=== PATIENT | male | born 1940 | race Caucasian/White ===

== ENCOUNTER → 2016-10-08 | Outpatient (CLI) | payer MEDICARE, BC ==
--- NOTE | 2016-10-08 15:54 | XR ---
EXAM TYPE: LUMBAR SPINE X RAY SERIES COMPARISON: NONE HISTORY: Low back pain TECHNIQUE: 3 views are submitted. FINDINGS: Alignment is anatomic. The pedicles are intact. The transverse processes are intact. There is no s pondylolysis or spondylolisthesis. Diffuse osteopenia is seen with postsurgical change at the lumbos acral junction. Hypertrophic changes and mild multilevel degenerative disc disease. Vascular calcific ation seen. IMPRESSION: 1. Hypertrophic and degenerative changes as discussed above. 2. Postsurgical change..
--- NOTE | 2016-10-09 08:13 | US ---
EXAMINATION TYPE: US venous doppler duplex LE DATE OF EXAM: 10/08/2016 2:44 PM COMPARISON: LOWER EXTREMITY VENOUS INSUFFICIENCY SIDE PERFORMED: 1) Color flow is present and patency is documented in the following vessels. No DVT or SVT is noted . ? EIV ? Common Femoral Vein ? Deep Femoral Vein ? Femoral Vein ? Popliteal Vein ? Greater Saph Vein 2) There is venous reflux noted at the following venous levels: left mid femoral vein, left proxi mal and mid popliteal TECHNOLOGIST IMPRESSION: Reflux not at levels above CLINICAL HISTORY: Venous Insufficency I87.2. SIDE PERFORMED: VESSELS IMAGED: External Iliac Vein (EIV) Common Femoral Vein Deep Femoral Vein Greater Saphenous Vein * Femoral Vein Popliteal Vein Small Saphenous Vein * Proximal Calf Veins (* superficial vessels) TECHNOLOGIST IMPRESSION: wnl Right Leg: Left Leg: No popliteal fossa lesion is seen. IMPRESSION: This examination is negative for DVT in both legs. Reflux as described.
--- NOTE | 2016-10-14 11:08 | P.ARTDOP ---
Arterial Doppler LOWER EXTREMITY ARTERIAL DOPPLER: DATE OF SERVICE: 10/08/2016 Reason for study: Suspected PVD. Doppler waveforms: Multiphasic to the dorsalis pedis on the right and popliteal on the left, monophasic left posterior tibial and digital is flat line digital on the right is atypical.. Pulse volume recording: Blunted throughout bilaterally. Pressure gradients: Mild gradient across the knee on the right. Ankle-brachial indices: 0.82 on the right and not recorded on the left. Toe pressures: Not recorded Impression: Suspect severe infrapopliteal disease on the left and at least moderate on the right. Clinical correlation recommended.
== END | disposition home or self-care (01) ==
LOC: RADUSWWP 14:12
PROVIDERS: ATTEND Neuromusculoskeletal Medicine & OMM
DX: I87.2 Venous insufficiency (chronic) (peripheral) (principal); I73.9 Peripheral vascular disease, unspecified; M51.36 Other intervertebral disc degeneration, lumbar region
CPT/HCPCS: 72100; 93923; 93970

== ENCOUNTER → 2016-12-01 | Outpatient (CLI) | payer MEDICARE, BC ==
[2016-12-01 14:53] LABS: ALT 23 U/L (21-72); AST 20 U/L (17-59); Alkaline Phosphatase 118 U/L (38-126); Anion Gap 12 mmol/L; Blood Urea Nitrogen 16 mg/dL (9-20); Carbon Dioxide 25 mmol/L (22-30); Chloride 103 mmol/L (98-107); Glucose 86 mg/dL (74-99); Non-African American GFR(MDRD) >60 (>60 ml/min/1.73 sqM); Potassium 5.4 mmol/L (3.5-5.1); Sodium 140 mmol/L (137-145); Total Protein 7.7 g/dL (6.3-8.2)
== END | disposition home or self-care (01) ==
LOC: LABWHC1 14:05
PROVIDERS: ATTEND Internal Medicine Interventional Cardiology
DX: R06.02 Shortness of breath (principal)
CPT/HCPCS: 36415; 80053; 83880

== ENCOUNTER → 2016-12-18 | Outpatient (CLI) | payer MEDICARE, BC ==
[2016-12-18 13:58] LABS: ALT 20 U/L (21-72); AST 21 U/L (17-59); Alkaline Phosphatase 130 U/L (38-126); Anion Gap 12 mmol/L; Blood Urea Nitrogen 20 mg/dL (9-20); Carbon Dioxide 26 mmol/L (22-30); Chloride 106 mmol/L (98-107); Cholesterol 196 mg/dL (<200); Glucose 96 mg/dL (74-99); HDL Cholesterol 44 mg/dL (40-60); Non-African American GFR(MDRD) >60 (>60 ml/min/1.73 sqM); Potassium 4.8 mmol/L (3.5-5.1); Sodium 144 mmol/L (137-145); Total Bilirubin 1.2 mg/dL (0.2-1.3); Total Protein 7.5 g/dL (6.3-8.2); Triglycerides 124 mg/dL (<150)
== END | disposition home or self-care (01) ==
LOC: LABWHC1 12:50
PROVIDERS: ATTEND Internal Medicine Interventional Cardiology
DX: E78.2 Mixed hyperlipidemia (principal)
CPT/HCPCS: 36415; 80053; 80061

== ENCOUNTER → 2017-03-04 | Outpatient (CLI) | payer MEDICARE, BC ==
[2017-03-04 12:04] LABS: Blood Urea Nitrogen 13 mg/dL (9-20); Non-African American GFR(MDRD) >60 (>60 ml/min/1.73 sqM)
--- NOTE | 2017-03-04 13:16 | CT ---
EXAMINATION TYPE: CT abdomen w con DATE OF EXAM: 03/04/2017 COMPARISON: NONE HISTORY: Abdominal pain and distention per order. Additional symptoms of constipation for 6 months pe r patient. CT DLP: 1266 mGycm, Automated Exposure Control for Dose Reduction was Utilized. CONTRAST: CT scan of the abdomen is performed with oral and with IV Contrast, patient injected with 100 mL of O mnipaque 300. FINDINGS: LUNG BASES: Dependent atelectatic change in both bases is present. There is trace pericardial effusio n. There is prominent but subcentimeter pericardial lymph node on axial image 12. LIVER/GB: Dependent gallstones are seen in gallbladder. There is no CT evidence for acute cholecystit is. Liver somewhat small in size. PANCREAS: No significant abnormality is seen. SPLEEN: No significant abnormality is seen. ADRENALS: No significant abnormality is seen. KIDNEYS: There is central 1.8 cm simple parapelvic cyst left kidney mid pole level on coronal image 6 5. There are simple appearing 1.9 cm cyst upper pole level right kidney on axial image 22. BOWEL: Oral contrast does not reach colonic level. There is no suspicious small or large bowel dilata tion. Moderate fecal material is somewhat prominent in visualized colon. There is small bowel feces s ign in the visualized right-sided distal ileum. LYMPH NODES: No greater than 1cm abdominal lymph nodes are appreciated. OSSEOUS STRUCTURES: Osseous structures are demineralized. There is multilevel spurring in the thoraci c spine. There are surgical change near lumbosacral junction. OTHER: There is moderate to severe mixed plaque in the aorta extending into branch vessels. IMPRESSION: Small bowel feces sign is consistent with delayed passage of ingested material to colonic level. There is overall mild to moderate diffuse colonic fecal stasis. No bowel obstruction is seen.
== END | disposition home or self-care (01) ==
LOC: RADCTMAIN 11:15
PROVIDERS: ATTEND Family Medicine
DX: K59.8 Other specified functional intestinal disorders (principal); R14.0 Abdominal distension (gaseous); R10.84 Generalized abdominal pain
CPT/HCPCS: 82565; 84520; 74160; 36415; Q9967

== ENCOUNTER → 2017-07-12 | Outpatient (CLI) | payer MEDICARE, BC ==
[2017-07-12 16:01] LABS: Blood Urea Nitrogen 15 mg/dL (9-20); Non-African American GFR(MDRD) >60 (>60 ml/min/1.73 sqM)
== END | disposition home or self-care (01) ==
LOC: LABWHC1 15:25
PROVIDERS: ATTEND Physical Medicine & Rehabilitation
DX: Z01.812 Encounter for preprocedural laboratory examination (principal); N28.9 Disorder of kidney and ureter, unspecified
CPT/HCPCS: 36415; 82565; 84520

== ENCOUNTER → 2017-09-09 | Outpatient (CLI) | payer MEDICARE, BC ==
--- NOTE | 2017-09-09 16:56 | XR ---
EXAMINATION TYPE: XR chest 2V DATE OF EXAM: 09/09/2017 COMPARISON: NONE HISTORY: Atrial fibrillation TECHNIQUE: Frontal and lateral views of the chest are obtained. FINDINGS: There is no heart failure nor confluent pneumonic infiltrate. Thoracic aorta is atheromato us. There is no sign of pleural effusion. Bony thorax appears intact. Heart does not appear enlarged. IMPRESSION: No active cardiopulmonary disease.
[2017-09-09 17:41] LABS: ALT 24 U/L (21-72); AST 21 U/L (17-59); Albumin 3.9 g/dL (3.5-5.0); Alkaline Phosphatase 140 U/L (38-126); Anion Gap 14 mmol/L; Blood Urea Nitrogen 18 mg/dL (9-20); Calcium 9.5 mg/dL (8.4-10.2); Carbon Dioxide 23 mmol/L (22-30); Chloride 103 mmol/L (98-107); Glucose 102 mg/dL (74-99); Potassium 4.3 mmol/L (3.5-5.1); Sodium 140 mmol/L (137-145)
== END | disposition home or self-care (01) ==
LOC: RADXRMAIN 16:23
PROVIDERS: ATTEND Internal Medicine Interventional Cardiology
DX: I48.0 Paroxysmal atrial fibrillation (principal); R06.09 Other forms of dyspnea
CPT/HCPCS: 36415; 71046; 80053; 83880

== ENCOUNTER → 2017-10-21 | Outpatient (CLI) | payer MEDICARE, BC ==
--- NOTE | 2017-10-21 15:48 | CT ---
EXAMINATION TYPE: High-resolution CT chest DATE OF EXAM: 10/21/2017 COMPARISON: NONE HISTORY: 77-year-old male Shortness of breath. TECHNIQUE: Contiguous high-resolution axial scanning of the chest without IV contrast. 1 mm slice thi ckness with 1 cm gap was utilized per HRCT protocol. Both supine and prone imaging was performed. CT DLP: 224 mGycm Automated exposure control for dose reduction was used. FINDINGS: The heart is normal size without pericardial effusion. Nonspecific prominent 1 cm pericardiac lymph n ode anteriorly. Mild coronary vessel calcifications are present. Ascending aorta mildly ectatic at 3.7 cm. Upper descending thoracic aorta ectatic at 3.1 cm. Conventi onal arch vessel branching anatomy. Borderline sized 1 cm right paratracheal lymph node. Borderline to mildly enlarged caliber to the dawit n right and left pulmonary arteries are 2.5 and 2.8 cm, respectively, suggesting underlying pulmonary arterial hypertension. Evaluation of the lung shows mild diffuse bronchial wall thickening and moderate centrilobular emphys cher. HRCT technique limits assessment for pulmonary nodules. There is some volume loss and patchy atelectasis at the right base. Moderate interstitial thickening in the basilar right middle lobe and inferior lingula. Otherwise, no dominant groundglass are stacked honeycombing is seen. No centrilobular nodules or thic kening of the bronchovascular bundles or perilymphatic nodularity. No consolidation or pleural effusi on. Visualized upper abdomen shows no gross abnormality. Bones: Osteopenia and multilevel degenerative disc disease throughout the thoracic spine. IMPRESSION: 1. COPD WITH MODERATE EMPHYSEMA. FINDINGS SUGGEST UNDERLYING PULMONARY ARTERIAL HYPERTENSION. 2. INTERSTITIAL CHANGES IN THE BASILAR RIGHT MIDDLE LOBE AND INFERIOR LINGULA. CORRELATE TO EXCLUDE I NDOLENT DAWIT INFECTION. CONSIDER 6 MONTH FOLLOW-UP TO REASSESS.
== END | disposition home or self-care (01) ==
LOC: RADCTMAIN 15:02
PROVIDERS: ATTEND Internal Medicine
DX: J43.9 Emphysema, unspecified (principal); J84.89 Other specified interstitial pulmonary diseases
CPT/HCPCS: 71250

== ENCOUNTER → 2017-11-02 | Outpatient (CLI) | payer MEDICARE, BC | END | disposition home or self-care (01) | LOC: LABWHC1 11:22 | PROVIDERS: ATTEND Internal Medicine | DX: R05 Cough (principal); R61 Generalized hyperhidrosis | CPT/HCPCS: 36415; 86480 ==

== ENCOUNTER 2017-11-17 09:10 | Day surgery (SDC) | payer MEDICARE, BC ==
[2017-11-12 16:16] VITALS: BMI 28.7
[~2017-11-17 09:10] MED LIST: LIDOCAINE 2% (PF) 20 MG/ML 2 ML AMP INHALATION ONE; LIDOCAINE VISCOUS 2% 15 ML CUP MUCOUS MEM ONE; SODIUM CHLORIDE 0.9% 1,000 ML IV ONE
[2017-11-17 09:33] VITALS: TEMP 97.8
[2017-11-17] MEDS: LACTATED RINGERS 1,000 ML IV SCH ×2 (09:49→10:12)
[2017-11-17] MEDS ORDERED: LIDOCAINE 1% 20 ML VIAL (10MG/ML) FOR IV START INTRADERMA ONE (09:49)
[2017-11-17] MEDS ORDERED: MIDAZOLAM 2 MG/2 ML VIAL ONE (10:16)
[2017-11-17] MEDS ORDERED: LIDOCAINE 1% INJ 10MG/ML (20 ML MDV) ONE (10:16)
[2017-11-17] MEDS ORDERED: PROPOFOL 10 MG/ML 20 ML VIAL IV ONE (10:16)
[2017-11-17] MEDS ORDERED: GLYCOPYRROLATE 0.2 MG/ML 2 ML VIAL ONE (10:16)
[2017-11-17] MEDS ORDERED: EPINEPHrine 10 ML SYRINGE (0.1 MG/ML) MISCELLANE ONE (10:50)
--- NOTE | 2017-11-17 11:03 | P.PCN ---
Date of Procedure: 11/17/17 Preoperative Diagnosis: Right middle lobe and lingula infiltrate concerning for DAWIT Postoperative Diagnosis: Same Procedure(s) Performed: Bronchoscopy with lingula BAL and right middle lobe BAL and transbronchial biopsies Surgeon: Aliza Morillo Estimated Blood Loss (ml): 25 Condition: stable Disposition: PACU Indications for Procedure: RML and lingula infiltrate Description of Procedure: After review of risks and benefits and discussion of alternative methods of diagnosis, the patient provided informed consent and is willing to proceed with evaluation is recommended. The patient, in endoscopy suite, was placed on continuous electrocardiogram, noninvasive blood pressure monitoring, and SpO2 monitoring. He was administered supplemental oxygen via nasal cannula and given IV sedation by the Department of anesthesia. The video bronchoscope was passed through the left nares and carried down to the level of the vocal cords the vocal cords were seen to be moving freely and phonation and respiration. The patient did have an abnormal glottis with axial deviation of the epiglottic folds. The larynx is normal. The trachea was normal. The lawson is sharp. The right mainstem bronchus was entered first where the right upper lobe, right middle lobe, and right lower lobe were identified. BAL was performed at the right middle lobe. The bronchoscope was then directed into the left mainstem bronchus.. BAL was performed at the lingula. The bronchoscope was then redirected back to the right middle lobe where transbronchial biopsies were obtained. Some bleeding occurred but hemostasis was achieved after the administration of 1mL epinephrine. The bronchoscope was then retracted and the procedure was terminated. The patient tolerated the procedure well. He was discharged to the recovery suite in stable and satisfactory position. We will obtain a post- procedure CXR. Family is updated to plan of care. Approximately 25 cc blood loss. Patient is transferred to recovery room in stable condition. He will follow up in my office on November 25 at 11 am. He can resume Xarelto on .
--- NOTE | 2017-11-17 11:28 | XR ---
EXAMINATION TYPE: XR chest 1V DATE OF EXAM: 11/17/2017 COMPARISON: 09/09/2017 HISTORY: Shortness of breath TECHNIQUE: Single frontal view of the chest is obtained. FINDINGS: Ectasia of the thoracic aorta noted. Chronic rib cage deformity suggestive with pleural th ickening bilaterally. Underlying cardiomegaly and COPD noted. Patchy infiltrate in the left upper lob e and right lower lobe. IMPRESSION: 1. Bilateral patchy areas of infiltrate superimposed on a background of COPD and suspected interstiti al lung disease.
[2017-11-17 11:31] VITALS: RESP 18
[2017-11-17 11:43] LABS: HCT 40.4 % (39.0-53.0); MCH 28.3 pg (25.0-35.0); MCHC 32.3 g/dL (31.0-37.0); MCV 87.7 fL (80.0-100.0); Mean Platelet Volume 7.3; Platelet Count 206 k/uL (150-450); RDW 13.3 % (11.5-15.5); WBC 6.8 k/uL (3.8-10.6)
[2017-11-17 11:48] LABS: INR 1.1 (<1.2)
[2017-11-17 11:49] LABS: Partial Thromboplastin Time 22.3 sec (22.0-30.0); Prothrombin Time 10.3 sec (9.0-12.0)
[2017-11-17 11:51] VITALS: BP 119/59; PULSE 69
[2017-11-17 16:29] LABS: Appearance,BF Hazy; Nucleated Cells, Body Fluid 15 /uL; RBC, Body Fluid 260 /uL
[2017-11-17 16:48] LABS: Mononuclear WBC,Body Fluid 96 %; Polynuclear WBC,Body Fluid 4 %; Total Cells Counted,Body Fluid 100
== END 2017-11-17 12:31 | disposition home or self-care (01) ==
LOC: ORWHC2ENDO 09:10
PROVIDERS: ATTEND Internal Medicine
DX: J98.4 Other disorders of lung (principal); I10 Essential (primary) hypertension; E78.5 Hyperlipidemia, unspecified; I48.91 Unspecified atrial fibrillation; N40.0 Benign prostatic hyperplasia without lower urinary tract symptoms; Z79.01 Long term (current) use of anticoagulants; Z79.899 Other long term (current) drug therapy
CPT/HCPCS: 94640; 87798 ×3; 87496; 87498; 87529; 88108; 88305; 86360; 89050; 85027; 85610; 85730; 87252; 87502; 87634; 87070; 87205; 87116; 87102; 87206; 71045; 31628; 31624; J2250; J2001 ×2; J0171; J2704; 31625

== ENCOUNTER 2018-01-28 11:37 | Day surgery (SDC) | payer MEDICARE, BC ==
[2018-01-25 08:46] VITALS: BMI 28.7
[~2018-01-28 11:37] MED LIST changes: +LACTATED RINGERS 1,000 ML IV SCH; +LIDOCAINE 1% 20 ML VIAL (10MG/ML) FOR IV START INTRADERMA PRN; -LIDOCAINE 2% (PF) 20 MG/ML 2 ML AMP INHALATION ONE; -LIDOCAINE VISCOUS 2% 15 ML CUP MUCOUS MEM ONE; -SODIUM CHLORIDE 0.9% 1,000 ML IV ONE
[2018-01-28 12:35] VITALS: RESP 16; TEMP 96.9
[2018-01-28] MEDS ORDERED: PROPOFOL 10 MG/ML 20 ML VIAL IV ONE (13:24)
--- NOTE | 2018-01-28 13:42 | P.GSHP ---
History of Present Illness H&P Date: 01/28/18 Chief Complaint: Screening colonoscopy This a 78-year-old male referred from Dr. Stock. Patient presents today for screening colonoscopy. She denies a significant GI complaints. Past Medical History Past Medical History: Atrial Fibrillation, COPD, Eye Disorder Additional Past Medical History / Comment(s): glaucoma, neuropathy, night sweats , abd. pain History of Any Multi-Drug Resistant Organisms: None Reported Past Surgical History: Back Surgery, Hernia Repair Additional Past Surgical History / Comment(s): colonoscopy Past Anesthesia/Blood Transfusion Reactions: No Reported Reaction Smoking Status: Former smoker - Past Family History Mother Family Medical History: No Reported History Medications and Allergies Home Medications Medication Instructions Recorded Confirmed Type Furosemide [Lasix] 20 mg PO BID 09/04/15 01/28/18 History Latanoprost Ophth [Xalatan 0.005%] 1 drops BOTH EYES HS 09/04/15 01/28/18 History Rivaroxaban [Xarelto] 20 mg PO HS 09/04/15 01/28/18 History Tiotropium 18 Mcg/Puff [Spiriva] 1 cap INHALATION QAM 09/04/15 01/28/18 History Metoprolol Tartrate 25 mg PO BID #180 tab 09/09/15 01/28/18 Rx Atorvastatin [Lipitor] 20 mg PO DAILY 11/12/17 01/28/18 History Tamsulosin [Flomax] 0.4 mg PO DAILY 11/12/17 01/28/18 History Allergies Allergy/AdvReac Type Severity Reaction Status Date / Time No Known Allergies Allergy Verified 01/28/18 12:28 Surgical - Exam Vital Signs Temp Pulse Resp BP Pulse Ox 96.9 F L 79 16 128/78 97 01/28/18 12:31 01/28/18 12:31 01/28/18 12:31 01/28/18 12:31 01/28/18 12:31 - General well developed, no distress - Eyes PERRL - ENT normal pinna - Neck no masses - Respiratory normal expansion - Cardiovascular Rhythm: regular - Abdomen Abdomen: soft, non tender Assessment and Plan Assessment: We will perform screening colonoscopy.
--- NOTE | 2018-01-28 14:01 | P.OP ---
Date of Procedure: 01/28/18 Preoperative Diagnosis: Screening colonoscopy Postoperative Diagnosis: Mild diverticulosis Poor colonic prep Procedure(s) Performed: Colonoscopy Anesthesia: MAC Surgeon: Tan Lamb Pathology: none sent Condition: stable Disposition: PACU Description of Procedure: The patient's placed on the endoscopy table in the lateral position. He received IV sedation. Digital rectal exam was performed which revealed no abnormalities. The flexible colonoscope was then placed patient anus and passed throughout the entire colon. The ileocecal valve was visually's. There was a large amount liquid stool in the colon. This limited view of the mucosa. The cecum and right colon appeared normal. The transverse colon appeared normal. In the descending colon was a few scattered diverticula. The; was a few scattered diverticula. Scope was then brought back the rectum and this appeared normal. Scope withdrawn from the patient.
[2018-01-28 14:28] VITALS: BP 160/96; PULSE 70
== END 2018-01-28 14:48 | disposition home or self-care (01) ==
LOC: ORWHC2ENDO 11:37
PROVIDERS: ATTEND Surgery
DX: Z12.11 Encounter for screening for malignant neoplasm of colon (principal); K57.30 Diverticulosis of large intestine without perforation or abscess without bleeding; I48.91 Unspecified atrial fibrillation; J44.9 Chronic obstructive pulmonary disease, unspecified; H40.9 Unspecified glaucoma; G62.9 Polyneuropathy, unspecified; R61 Generalized hyperhidrosis; R10.9 Unspecified abdominal pain; I10 Essential (primary) hypertension; E78.5 Hyperlipidemia, unspecified; Z87.891 Personal history of nicotine dependence; Z79.01 Long term (current) use of anticoagulants; Z79.899 Other long term (current) drug therapy
CPT/HCPCS: J2704; G0121

== ENCOUNTER → 2018-02-03 | Outpatient (CLI) | payer MEDICARE, BC ==
[2018-02-03 10:45] LABS: Blood Urea Nitrogen 11 mg/dL (9-20)
--- NOTE | 2018-02-03 13:13 | CT ---
EXAMINATION TYPE: CT abdomen pelvis w con DATE OF EXAM: 02/03/2018 COMPARISON: 03/04/2017 HISTORY: Constipation; ventral hernia CT DLP: 1347.5 mGycm Automated exposure control for dose reduction was used. TECHNIQUE: Helical acquisition of images was performed from the lung bases through the pelvis. CONTRAST: Performed with Oral Contrast and with IV Contrast, patient injected with 100 mL of Isovue 300. FINDINGS: LUNG BASES: Minimal bibasilar subsegmental dependent atelectasis is identified. Calcifications along the pericardial surface may relate to sequela of prior pericarditis. Solitary epiphrenic lymph node i s nonenlarged measuring 7 mm in short axis. LIVER/GB: There is a nodular contour the liver suggesting underlying hepatocellular disease. Multiple gallstones layer within the gallbladder dependently. Common bile duct appears within normal limits m easuring 6 mm. PANCREAS: Pancreas enhances homogeneously without ductal dilatation. SPLEEN: Unremarkable ADRENALS: No nodularity or thickening. KIDNEYS: Multiple bilateral renal cysts are seen in addition to 2 small to accurately characterize ri ght renal lesions. No hydronephrosis. Extrarenal pelvises sees are noted. FREE AIR: No free air is visualized. ADENOPATHY: No greater than 1 cm short axis with nodes within the abdomen or pelvis. URINARY BLADDER: No significant abnormality is seen. OSSEOUS STRUCTURES: Postsurgical changes of the lumbosacral junction are present. Mild multilevel de generative changes of the remainder of the visualized thoracolumbar spine are seen. BOWEL: There is long segment narrowing of the sigmoid colon without proximal dilatation to suggest o bstruction. This likely relates to colonic spasm rather than stricture. There is lipomatous hypertrop hy of the ileocecal valve appreciated. The stomach is nondistended and poorly evaluated. OTHER: Extensive atherosclerosis of the abdominal aorta and its branches are seen. There is focal inf rarenal abdominal aortic ectasia measuring up to 2.6 x 2.7 cm spanning a length of 3.0 cm on series 4 image 41 and series 8 image 47. No ventral hernia is appreciated. IMPRESSION: 1. NO VENTRAL HERNIA IS APPRECIATED BY CT. 2. MODERATE AMOUNT RETAINED COLONIC STOOL INDICATING FECAL STASIS AND INCIDENTAL NOTE OF LIPOMATOUS H YPERTROPHY OF THE ILEOCECAL VALVE WITHOUT OBSTRUCTING MASS. 3. EXTENSIVE CALCIFIC ATHEROMATOUS CHANGES OF THE ABDOMINAL AORTA AND ITS BRANCHES. 4. FINDINGS SUGGESTING UNDERLYING HEPATOCELLULAR DISEASE AND INCIDENTALLY NOTED CHOLELITHIASIS. 5. PERICARDIAL CALCIFICATION SUGGESTIVE OF PRIOR PERICARDITIS.
== END | disposition home or self-care (01) ==
LOC: RADCTMAIN 09:55
PROVIDERS: ATTEND Surgery
DX: K59.00 Constipation, unspecified (principal); I70.0 Atherosclerosis of aorta
CPT/HCPCS: 82565; 84520; 74177; Q9967

== ENCOUNTER 2018-02-21 07:55 | Day surgery (SDC) | payer MEDICARE, BC ==
[2018-02-14 13:59] VITALS: BMI 27.6
[~2018-02-21 07:55] MED LIST changes: +DEXAMETHASONE SOD PHOSPHATE 10 MG/ML 1 ML VIAL IV ONE; +HEPARIN SODIUM,PORCINE 5,000 UNIT/ML 1 ML VIAL SQ ONE; +HYDROmorphone 1 MG/ML 1 ML SYRINGE IVP PRN; +MIDAZOLAM 2 MG/2 ML VIAL IV PRN; +ONDANSETRON 4 MG/2 ML VIAL IVP ONE; +SCOPOLAMINE 1.5MG/72HR PATCH TRANSDERM ONE; +ceFAZolin IN SWFI 2 GM/20 ML SYRINGE IVP ONE
--- NOTE | 2018-02-21 09:54 | P.GSHP ---
History of Present Illness H&P Date: 02/21/18 Chief Complaint: Cholelithiasis, chronic cholecystitis This is a 78-year-old male referred from Dr. Stock. Patient presents today for laparoscopic cholecystectomy. He's had issues with right upper quadrant pain. He is worked up found have gallstones. Past Medical History Past Medical History: Atrial Fibrillation, COPD, Eye Disorder Additional Past Medical History / Comment(s): glaucoma, hx neuropathy, night sweats, History of Any Multi-Drug Resistant Organisms: None Reported Past Surgical History: Back Surgery, Hernia Repair Additional Past Surgical History / Comment(s): colonoscopy, surgery for pinched nerve in back Past Anesthesia/Blood Transfusion Reactions: No Reported Reaction Smoking Status: Former smoker - Past Family History Mother Family Medical History: No Reported History Medications and Allergies Home Medications Medication Instructions Recorded Confirmed Type Furosemide [Lasix] 20 mg PO BID 09/04/15 02/14/18 History Latanoprost Ophth [Xalatan 0.005%] 1 drops BOTH EYES HS 09/04/15 02/14/18 History Rivaroxaban [Xarelto] 20 mg PO HS 09/04/15 02/14/18 History Tiotropium 18 Mcg/Puff [Spiriva] 1 cap INHALATION QAM 09/04/15 02/14/18 History Metoprolol Tartrate 25 mg PO BID #180 tab 09/09/15 02/14/18 Rx Tamsulosin [Flomax] 0.4 mg PO DAILY 11/12/17 02/14/18 History Atorvastatin [Lipitor] 40 mg PO HS 02/14/18 02/14/18 History Allergies Allergy/AdvReac Type Severity Reaction Status Date / Time No Known Allergies Allergy Verified 02/14/18 13:49 Surgical - Exam Vital Signs Temp Pulse Resp BP Pulse Ox 97.1 F L 79 18 121/78 98 02/21/18 08:32 02/21/18 08:32 02/21/18 08:32 02/21/18 08:32 02/21/18 08:32 - General well developed, no distress - Eyes PERRL - ENT normal pinna - Neck no masses - Respiratory normal expansion - Cardiovascular Rhythm: regular - Abdomen Abdomen: soft, non tender Assessment and Plan Assessment: Cholelithiasis Recurrent pain We'll perform laparoscopic cholecystectomy
[2018-02-21] MEDS ORDERED: MIDAZOLAM 2 MG/2 ML VIAL ONE (10:19)
[2018-02-21] MEDS ORDERED: PROPOFOL 10 MG/ML 20 ML VIAL IV ONE (10:19)
[2018-02-21] MEDS ORDERED: fentaNYL (PF) 50 MCG/ML 2 ML AMP ONE (10:19)
[2018-02-21] MEDS ORDERED: SUCCINYLCHOLINE CHLORIDE 100 MG/5 ML SYR IV ONE (10:19)
[2018-02-21] MEDS ORDERED: ROCURONIUM BROMIDE 10 MG/ML 10 ML VIAL IV ONE (10:19)
[2018-02-21] MEDS ORDERED: GLYCOPYRROLATE 0.2 MG/ML 2 ML VIAL ONE (10:19)
[2018-02-21] MEDS ORDERED: LIDOCAINE 1% INJ 10MG/ML (20 ML MDV) ONE (10:19)
[2018-02-21] MEDS ORDERED: KETOROLAC 30 MG/ML 1 ML VIAL ONE (10:19)
[2018-02-21] MEDS ORDERED: NEOSTIGMINE 1 MG/ML 10 ML VIAL ONE (10:19)
[2018-02-21] MEDS ORDERED: BUPIVACAIN-EPI 0.5%-1:200,000 30 ML VIAL SQ ONE (10:39)
--- NOTE | 2018-02-21 11:07 | P.OP ---
Date of Procedure: 02/21/18 Preoperative Diagnosis: Cholecystitis Postoperative Diagnosis: Cholecystitis Procedure(s) Performed: Laparoscopic cholecystectomy Anesthesia: ASHELY Surgeon: Tan Lamb Pathology: other (gAll bladder) Condition: stable Disposition: PACU Description of Procedure: The patient was placed on the operating table. The patient received a general endotracheal tube anesthesia. The patients abdomen was prepped and draped in the usual sterile fashion. Through an infraumbilical stab incision, the fascia of the anterior abdominal wall was grasped with a pair of Kochers and then the Veress needle was placed in the peritoneal cavity. Position of the Veress needle was confirmed with positive drop test. The abdomen was then insufflated. After adequate insufflation, the 10 mm trocar was placed in the peritoneal cavity. Following this the laparoscope was placed in the peritoneal cavity. The patient was placed in the head-up, right side up position and then a 5 mm trocar was placed in the right lateral and right subcostal position under direct visualization. A 8 mm trocar was placed in the epigastric position. The gallbladder was grasped in the fundus and infundibulum. Traction on the gallbladder was placed in the lateral and the cephalad positions. The triangle of Calot was visualized.. The cystic duct was bluntly dissected until the union of the cystic duct and common bile duct was seen. The cystic duct was then divided and sealed with the Harmonic scissors. A PDS Endoloop was then placed throughout the cystic duct stump. The cystic artery divided and sealed with the Harmonic scissors. The gallbladder was then removed from the liver bed using Harmonic scissors. The gallbladder was then extracted through the epigastric port site. Operative field was checked for any bleeding spots and Harmonic scissors was used to coagulate the liver bed. The abdomen was irrigated. The trocars were removed. The skin was closed using interrupted 3-0 Vicryl suture. Dermabond dressing were applied. The patient tolerated the procedure well.
[2018-02-21 11:13] VITALS: TEMP 96.9
[2018-02-21 12:59] VITALS: BP 148/90; PULSE 77; RESP 20
== END 2018-02-21 13:13 | disposition home or self-care (01) ==
LOC: OR 07:55
PROVIDERS: ATTEND Surgery
DX: K80.10 Calculus of gallbladder with chronic cholecystitis without obstruction (principal); Z79.01 Long term (current) use of anticoagulants; I48.91 Unspecified atrial fibrillation; J44.9 Chronic obstructive pulmonary disease, unspecified; H40.9 Unspecified glaucoma; Z87.891 Personal history of nicotine dependence; I10 Essential (primary) hypertension; E78.5 Hyperlipidemia, unspecified; Z79.899 Other long term (current) drug therapy
CPT/HCPCS: 88304; 47562; J2250; J1644; J1100; J2710; J2405; J2001; J3010; J1885; J0330; J2704; J0690

== ENCOUNTER 2018-03-03 12:20 | Emergency (ER) | payer MEDICARE, BC ==
[2018-03-03] MEDS ORDERED: SODIUM CHLORIDE 0.9% 1,000 ML IV STA (12:27)
[2018-03-03] MEDS ORDERED: IPRATROPIUM-ALBUTEROL 3 ML NEB INHALATION STA (12:27)
--- NOTE | 2018-03-03 12:43 | ED ---
SOB HPI - General Chief Complaint: Shortness of Breath Stated Complaint: Afib Time Seen by Provider: 03/03/18 12:20 Source: patient (\), family, EMS, RN notes reviewed Mode of arrival: EMS Limitations: no limitations - History of Present Illness Initial Comments: This is a 78-year-old male with a history of a cholecystectomy done laparoscopically 9 days ago who complains of difficulty breathing is started today. He has a history of atrial fibrillation he states it feels similar to that he denies any fevers chills nausea vomiting sweats no overt chest pains he was brought in by EMS because of a history of COPD he does not have a rescue inhaler. No other complaints MD Complaint: shortness of breath - Related Data Home Medications Medication Instructions Recorded Confirmed Furosemide [Lasix] 20 mg PO BID 09/04/15 03/03/18 Latanoprost Ophth [Xalatan 0.005%] 1 drops BOTH EYES HS 09/04/15 03/03/18 Rivaroxaban [Xarelto] 20 mg PO HS 09/04/15 03/03/18 Tiotropium 18 Mcg/Puff [Spiriva] 1 cap INHALATION RT-DAILY 09/04/15 03/03/18 Tamsulosin [Flomax] 0.4 mg PO DAILY 11/12/17 03/03/18 Atorvastatin [Lipitor] 60 mg PO HS 02/14/18 03/03/18 Previous Rx's Medication Instructions Recorded Metoprolol Tartrate 25 mg PO BID #180 tab 09/09/15 Albuterol Inhaler [Ventolin Hfa 2 puff INHALATION Q6HR PRN #1 03/03/18 Inhaler] inhaler Ondansetron Odt [Zofran Odt] 4 mg PO Q8HR PRN #10 tab 03/03/18 Allergies Allergy/AdvReac Type Severity Reaction Status Date / Time No Known Allergies Allergy Verified 03/03/18 12:31 Review of Systems ROS Statement: Those systems with pertinent positive or pertinent negative responses have been documented in the HPI. ROS Other: All systems not noted in ROS Statement are negative. Past Medical History Past Medical History: Atrial Fibrillation, COPD, Eye Disorder Additional Past Medical History / Comment(s): glaucoma, hx neuropathy, night sweats, History of Any Multi-Drug Resistant Organisms: None Reported Past Surgical History: Back Surgery, Cholecystectomy, Hernia Repair Additional Past Surgical History / Comment(s): colonoscopy, surgery for pinched nerve in back Past Anesthesia/Blood Transfusion Reactions: No Reported Reaction Past Psychological History: No Psychological Hx Reported Smoking Status: Former smoker Past Alcohol Use History: None Reported Past Drug Use History: None Reported - Past Family History Mother Family Medical History: No Reported History General Exam - General Exam Comments Initial Comments: This is a well up well-nourished awake alert oriented 3 male Limitations: no limitations General appearance: alert, in no apparent distress Head exam: Present: atraumatic, normocephalic, normal inspection Eye exam: Present: normal appearance, PERRL, EOMI. Absent: scleral icterus, conjunctival injection, periorbital swelling ENT exam: Present: normal exam, mucous membranes moist Neck exam: Present: normal inspection. Absent: tenderness, meningismus, lymphadenopathy Respiratory exam: Present: decreased breath sounds. Absent: respiratory distress, wheezes, rales, rhonchi, stridor Cardiovascular Exam: Present: regular rate, normal rhythm, normal heart sounds. Absent: systolic murmur, diastolic murmur, rubs, gallop, clicks GI/Abdominal exam: Present: soft, normal bowel sounds, other (Well-healing surgical port sites no dehiscence no drainage there is ecchymosis seen to the lower abdominal wall consistent with the surgery.). Absent: distended, tenderness, guarding, rebound, rigid Extremities exam: Present: normal inspection, full ROM, normal capillary refill. Absent: tenderness, pedal edema, joint swelling, calf tenderness Back exam: Present: normal inspection Neurological exam: Present: alert, oriented X3, CN II-XII intact Psychiatric exam: Present: normal affect, normal mood Skin exam: Present: warm, dry, intact, normal color. Absent: rash Course Vital Signs 03/03/18 03/03/18 03/03/18 12:31 12:43 13:11 Temperature 98.0 F Pulse Rate 68 66 66 Respiratory 18 16 18 Rate Blood Pressure 140/70 132/60 O2 Sat by Pulse 96 97 Oximetry 03/03/18 03/03/18 03/03/18 13:18 13:30 15:41 Temperature Pulse Rate 67 68 82 Respiratory 18 22 18 Rate Blood Pressure 110/78 135/69 O2 Sat by Pulse 99 100 Oximetry Medical Decision Making - Medical Decision Making I did discuss the findings with the patient family and with Dr. Lamb. Patient will be discharged I will place him on a inhaler he is to keep his follow-up appointment with Dr. Reyes tomorrow. He did have some nausea I will write for some Zofran for him. - Lab Data Result diagrams: 03/03/18 12:41 03/03/18 12:41 Lab Results 03/03/18 03/03/18 03/03/18 Range/Units 12:41 12:41 12:41 WBC 6.3 (3.8-10.6) k/uL RBC 5.06 (4.30-5.90) m/uL Hgb 14.4 (13.0-17.5) gm/dL Hct 43.4 (39.0-53.0) % MCV 85.9 (80.0-100.0) fL MCH 28.4 (25.0-35.0) pg MCHC 33.1 (31.0-37.0) g/dL RDW 14.5 (11.5-15.5) % Plt Count 205 (150-450) k/uL Neutrophils % 65 % Lymphocytes % 21 % Monocytes % 8 % Eosinophils % 4 % Basophils % 0 % Neutrophils # 4.1 (1.3-7.7) k/uL Lymphocytes # 1.3 (1.0-4.8) k/uL Monocytes # 0.5 (0-1.0) k/uL Eosinophils # 0.3 (0-0.7) k/uL Basophils # 0.0 (0-0.2) k/uL PT (9.0-12.0) sec INR (<1.2) APTT (22.0-30.0) sec Sodium 140 (137-145) mmol/L Potassium 4.7 (3.5-5.1) mmol/L Chloride 111 H (98-107) mmol/L Carbon Dioxide 21 L (22-30) mmol/L Anion Gap 8 mmol/L BUN 13 (9-20) mg/dL Creatinine 0.65 L (0.66-1.25) mg/dL Est GFR (CKD-EPI)AfAm >90 (>60 ml/min/1.73 sqM) Est GFR (CKD-EPI)NonAf >90 (>60 ml/min/1.73 sqM) Glucose 100 H (74-99) mg/dL Calcium 9.0 (8.4-10.2) mg/dL Magnesium 2.6 H (1.6-2.3) mg/dL Total Bilirubin 1.5 H (0.2-1.3) mg/dL AST 35 (17-59) U/L ALT 27 (21-72) U/L Alkaline Phosphatase 147 H (38-126) U/L Total Creatine Kinase 25 L (55-170) U/L CK-MB (CK-2) 0.3 (0.0-2.4) ng/mL CK-MB (CK-2) Rel Index 1.2 Troponin I <0.012 (0.000-0.034) ng/mL NT-Pro-B Natriuret Pep pg/mL Total Protein 6.9 (6.3-8.2) g/dL Albumin 3.9 (3.5-5.0) g/dL 03/03/18 03/03/18 Range/Units 12:41 12:41 WBC (3.8-10.6) k/uL RBC (4.30-5.90) m/uL Hgb (13.0-17.5) gm/dL Hct (39.0-53.0) % MCV (80.0-100.0) fL MCH (25.0-35.0) pg MCHC (31.0-37.0) g/dL RDW (11.5-15.5) % Plt Count (150-450) k/uL Neutrophils % % Lymphocytes % % Monocytes % % Eosinophils % % Basophils % % Neutrophils # (1.3-7.7) k/uL Lymphocytes # (1.0-4.8) k/uL Monocytes # (0-1.0) k/uL Eosinophils # (0-0.7) k/uL Basophils # (0-0.2) k/uL PT 11.4 (9.0-12.0) sec INR 1.2 H (<1.2) APTT 24.8 (22.0-30.0) sec Sodium (137-145) mmol/L Potassium (3.5-5.1) mmol/L Chloride (98-107) mmol/L Carbon Dioxide (22-30) mmol/L Anion Gap mmol/L BUN (9-20) mg/dL Creatinine (0.66-1.25) mg/dL Est GFR (CKD-EPI)AfAm (>60 ml/min/1.73 sqM) Est GFR (CKD-EPI)NonAf (>60 ml/min/1.73 sqM) Glucose (74-99) mg/dL Calcium (8.4-10.2) mg/dL Magnesium (1.6-2.3) mg/dL Total Bilirubin (0.2-1.3) mg/dL AST (17-59) U/L ALT (21-72) U/L Alkaline Phosphatase (38-126) U/L Total Creatine Kinase (55-170) U/L CK-MB (CK-2) (0.0-2.4) ng/mL CK-MB (CK-2) Rel Index Troponin I (0.000-0.034) ng/mL NT-Pro-B Natriuret Pep 748 pg/mL Total Protein (6.3-8.2) g/dL Albumin (3.5-5.0) g/dL - EKG Data -: EKG Interpreted by Md EKG shows normal: sinus rhythm (Sinus bradycardia rate of 59. Interval 134 QRS 84 QT since QTC 398/[address]-T wave changes) - Radiology Data Radiology results: report reviewed (I did the imaging and report no acute findings on initial imaging CAT scan did show no evidence of PE the CT was reviewed there is evidence of postoperative hematoma.), image reviewed Disposition Clinical Impression: Acute exacerbation of chronic obstructive airways disease, Postop check, Nausea alone Disposition: HOME SELF-CARE Condition: Good Instructions: COPD (Chronic Obstructive Pulmonary Disease) (ED), Acute Nausea and Vomiting (ED) Prescriptions: Albuterol Inhaler [Ventolin Hfa Inhaler] 2 puff INHALATION Q6HR PRN #1 inhaler PRN Reason: Dyspnea Ondansetron Odt [Zofran Odt] 4 mg PO Q8HR PRN #10 tab PRN Reason: Nausea Is patient prescribed a controlled substance at d/c from ED?: No Referrals: Maria Ines Jaimes MD [Primary Care Provider] - 1-2 days
[2018-03-03 12:55] LABS: Basophils % (A) 0 %; Eosinophils # (A) 0.3 k/uL (0-0.7); Eosinophils % (A) 4 %; HCT 43.4 % (39.0-53.0); HGB 14.4 gm/dL (13.0-17.5); Lymphocytes # (A) 1.3 k/uL (1.0-4.8); Lymphocytes % (A) 21 %; MCH 28.4 pg (25.0-35.0); MCHC 33.1 g/dL (31.0-37.0); MCV 85.9 fL (80.0-100.0); Mean Platelet Volume 7.1; Monocytes # (A) 0.5 k/uL (0-1.0); Monocytes % (A) 8 %; Neutrophils # (A) 4.1 k/uL (1.3-7.7); Neutrophils % (A) 65 %; Platelet Count 205 k/uL (150-450); RBC 5.06 m/uL (4.30-5.90); RDW 14.5 % (11.5-15.5); WBC 6.3 k/uL (3.8-10.6)
[2018-03-03 12:59] LABS: INR 1.2 (<1.2); Partial Thromboplastin Time 24.8 sec (22.0-30.0); Prothrombin Time 11.4 sec (9.0-12.0)
[2018-03-03 13:17] LABS: ALT 27 U/L (21-72); AST 35 U/L (17-59); Albumin 3.9 g/dL (3.5-5.0); Alkaline Phosphatase 147 U/L (38-126); Anion Gap 8 mmol/L; Blood Urea Nitrogen 13 mg/dL (9-20); Carbon Dioxide 21 mmol/L (22-30); Chloride 111 mmol/L (98-107); Creatine Kinase 25 U/L (55-170); Glucose 100 mg/dL (74-99); Magnesium 2.6 mg/dL (1.6-2.3); Sodium 140 mmol/L (137-145); Total Bilirubin 1.5 mg/dL (0.2-1.3); Total Protein 6.9 g/dL (6.3-8.2)
[2018-03-03 13:18] LABS: Potassium 4.7 mmol/L (3.5-5.1)
--- NOTE | 2018-03-03 13:23 | XR ---
EXAMINATION TYPE: XR chest 2V DATE OF EXAM: 03/03/2018 COMPARISON: Prior chest x-ray 11/17/[address] 02/03/2018, 10/21/2017 HISTORY: Difficulty breathing TECHNIQUE: Frontal and lateral views of the chest are obtained. FINDINGS: Cardiac mediastinal silhouette, pulmonary vascularity and karen are not significantly sesay ed. There is improvement in the aeration within the lungs, interstitium is less conspicuous. 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 Prominent lung volume compatible with underlying emphysema. No evident pneumoth orax. There are overlying cardiac leads. IMPRESSION: There is a component of interstitial lung disease, emphysema. Suspect some chronic pleur al reaction.
[2018-03-03 13:28] LABS: Creatine Kinase MB 0.3 ng/mL (0.0-2.4); Troponin I <0.012 ng/mL (0.000-0.034)
--- NOTE | 2018-03-03 15:35 | CT ---
EXAMINATION TYPE: CT angio chest DATE OF EXAM: 03/03/2018 COMPARISON: NONE HISTORY: SOB post op cholecystectomy CT DLP: 380.5 mGycm. Automated Exposure Control for Dose Reduction was Utilized. CONTRAST: CTA scan of the thorax is performed with IV Contrast, patient injected with 100 mL of Isovue 370, pul monary embolism protocol. MIP Images are created on CT scanner and reviewed. FINDINGS: LUNGS: Moderate background centrilobular emphysematous change is noted with biapical pleural parenchy mal scarring. Left basilar pleural-parenchymal bandlike fibrosis is present in addition to bilateral subsegmental atelectasis, right greater than left. Right basilar consolidation is hyperdense and ther efore favored to represent atelectasis rather than early pneumonia. There is no pneumothorax seen. Trace pleural effusions are noted. The tracheobronchial tree is patent. MEDIASTINUM: There is satisfactory enhancement of the pulmonary artery and its branches, there is no CT evidence for pulmonary embolism. There are no greater than 1 cm hilar or mediastinal lymph nodes. Mild coronary artery calcifications are seen. Trace pericardial fluid is noted as well as few perica rdial calcifications likely the sequela of prior pericarditis. OTHER: Visualized portions of the upper abdomen will be discussed in the CT abdomen dictation of the same date. Incidentally noted retroareolar probable gynecomastia is seen, left greater than right. Ho wever there are 2 densities lateral to the nipple on series 2 image 85 and 88 that do not appear cont iguous with the retroareolar tissue. Similarly on the right there is a subcentimeter mass on image 78 . Ultrasound is recommended for further evaluation. IMPRESSION: 1. No evidence of pulmonary embolism. 2. Bilateral subsegmental atelectasis, right greater than left with trace pleural effusions. 3. Subcentimeter densities in both lateral breasts in addition to retroareolar gynecomastia, left gre ater than right. Ultrasound is recommended on a nonemergent basis for full characterization.
[2018-03-03 15:44] VITALS: RESP 18
--- NOTE | 2018-03-03 15:45 | CT ---
EXAMINATION TYPE: CT abdomen pelvis w con DATE OF EXAM: 03/03/2018 COMPARISON: HISTORY: SOB and abdominal pain post op cholecystectomy CT DLP: 1571 mGycm Automated exposure control for dose reduction was used. TECHNIQUE: Helical acquisition of images was performed from the lung bases through the pelvis. CONTRAST: Performed without Oral Contrast and with IV Contrast, patient injected with 100 mL of Isovue 370. FINDINGS: LUNG BASES: No significant abnormality is appreciated. LIVER/GB: High density collection within the gallbladder fossa measures approximately 6.2 x 3.6 cm. T here is surrounding inflammatory change, however this inflammatory change could be postsurgical or re lated to infectious etiology. Considerations are for complex abscess, biloma or hematoma. Abutting lo ops of matted small bowel is seen more anteriorly on series 3 image 36 and 35 near the serosal surfac e of the liver. Lobulated contour the liver most appreciated inferiorly suggestive of early underlying hepatocellular disease. PANCREAS: No significant abnormality is seen. No ductal dilatation. SPLEEN: No splenomegaly. ADRENALS: No nodularity or thickening. KIDNEYS: There are bilateral renal cysts and too small to accurately characterize right lower pole 5 mm renal lesion. FREE AIR: No free air is visualized. URINARY BLADDER: No significant abnormality is seen. ADENOPATHY: No greater than 1 cm short axis lymph node is seen within the abdomen or pelvis. OSSEOUS STRUCTURES: Postsurgical fixation of L5-S1 is seen with multilevel degenerative changes of t he spine. There is a slight dextroscoliotic curvature of the lumbar spine. BOWEL: Moderate amount retained colonic stool is seen. No large or small bowel dilatation are noted to suggest obstruction. The small bowel is predominantly gathered within the right mid abdomen althou gh there is no reversal of the orientation of the superior mesenteric vein and artery to suggest malr otation. No dilation to suggest internal hernia at this time. OTHER: Extensive calcific and noncalcific atheromatous changes are seen of the abdominal aorta with a small intimal flap focally of the infrarenal abdominal aorta representing either a penetrating ather omatous ulcer on series 6 image 43 or possibly a short segment chronic dissection on series 6 image 4 2 and 41. IMPRESSION: 1. HIGH DENSITY FLUID COLLECTION WITHIN THE GALLBLADDER FOSSA MAY REPRESENT A BILOMA, COMPLEX ABSCESS ES, OR HEMATOMA GIVEN ITS DENSITY. SURROUNDING INFLAMMATORY CHANGE MAY BE POSTSURGICAL. HIDA SCAN COU LD BE PERFORMED TO EVALUATE FOR THE PRESENCE OF A BILOMA. 2. INFRARENAL PENETRATING ATHEROMATOUS ULCER OR SHORT SEGMENT CHRONIC DISSECTION SUPERIMPOSED UPON EX TENSIVE ATHEROMATOUS CHANGES OF THE ABDOMINAL AORTA. 3. FINDINGS SUGGESTING EARLY HEPATOCELLULAR DISEASE.
[2018-03-03 16:43] VITALS: BP 128/70; PULSE 78; TEMP 97.5
== END 2018-03-03 16:43 | disposition home or self-care (01) ==
LOC: EC 12:20
DX: J44.1 Chronic obstructive pulmonary disease with (acute) exacerbation (principal); R11.0 Nausea; Z48.815 Encounter for surgical aftercare following surgery on the digestive system; I48.91 Unspecified atrial fibrillation; H40.9 Unspecified glaucoma; Z87.891 Personal history of nicotine dependence; Z79.01 Long term (current) use of anticoagulants; Z79.899 Other long term (current) drug therapy; Z90.49 Acquired absence of other specified parts of digestive tract; Z53.8 Procedure and treatment not carried out for other reasons
CPT/HCPCS: 36415; 94640; 93005; 83880; 80053; 82550; 82553; 83735; 84484; 85025; 85610; 85730; 71046; 71275; 74177; 99285; Q9967

== ENCOUNTER 2018-05-02 12:16 | Day surgery (SDC) | payer MEDICARE, BC ==
[2018-04-28 09:34] VITALS: BMI 27.9
[~2018-05-02 12:16] MED LIST changes: -DEXAMETHASONE SOD PHOSPHATE 10 MG/ML 1 ML VIAL IV ONE; -HEPARIN SODIUM,PORCINE 5,000 UNIT/ML 1 ML VIAL SQ ONE; -HYDROmorphone 1 MG/ML 1 ML SYRINGE IVP PRN; -LIDOCAINE 1% 20 ML VIAL (10MG/ML) FOR IV START INTRADERMA PRN; -MIDAZOLAM 2 MG/2 ML VIAL IV PRN; -ONDANSETRON 4 MG/2 ML VIAL IVP ONE; -SCOPOLAMINE 1.5MG/72HR PATCH TRANSDERM ONE; -ceFAZolin IN SWFI 2 GM/20 ML SYRINGE IVP ONE
[2018-05-02 12:49] VITALS: RESP 16; TEMP 98
[2018-05-02] MEDS ORDERED: PROPOFOL 10 MG/ML 20 ML VIAL IV ONE (13:57)
[2018-05-02] MEDS ORDERED: LIDOCAINE 1% INJ 10MG/ML (20 ML MDV) ONE (13:57)
--- NOTE | 2018-05-02 14:10 | P.GSHP ---
History of Present Illness H&P Date: 05/02/18 Chief Complaint: GI bleed This a 78-year-old male referred from Dr. grier. Patient is today for colonoscopy EGD. He's had issues with GI bleed. Past Medical History Past Medical History: Atrial Fibrillation, COPD, Eye Disorder, Hyperlipidemia, Hypertension Additional Past Medical History / Comment(s): glaucoma, hx neuropathy, History of Any Multi-Drug Resistant Organisms: None Reported Past Surgical History: Back Surgery, Cholecystectomy, Hernia Repair Additional Past Surgical History / Comment(s): colonoscopy, surgery for pinched nerve in back Past Anesthesia/Blood Transfusion Reactions: No Reported Reaction Smoking Status: Former smoker - Past Family History Mother Family Medical History: No Reported History Medications and Allergies Home Medications Medication Instructions Recorded Confirmed Type Furosemide [Lasix] 20 mg PO BID 09/04/15 05/02/18 History Latanoprost Ophth [Xalatan 0.005%] 1 drops BOTH EYES HS 09/04/15 05/02/18 History Rivaroxaban [Xarelto] 20 mg PO HS 09/04/15 05/02/18 History Tiotropium 18 Mcg/Puff [Spiriva] 1 cap INHALATION RT-DAILY 09/04/15 05/02/18 History Metoprolol Tartrate 25 mg PO BID #180 tab 09/09/15 05/02/18 Rx Tamsulosin [Flomax] 0.4 mg PO DAILY 11/12/17 05/02/18 History Atorvastatin [Lipitor] 60 mg PO HS 02/14/18 05/02/18 History Albuterol Inhaler [Ventolin Hfa 2 puff INHALATION Q6HR PRN #1 03/03/18 05/02/18 Rx Inhaler] inhaler Allergies Allergy/AdvReac Type Severity Reaction Status Date / Time No Known Allergies Allergy Verified 05/02/18 12:40 Surgical - Exam Vital Signs Temp Pulse Resp BP Pulse Ox 98.0 F 77 16 145/85 84 L 05/02/18 12:48 05/02/18 12:48 05/02/18 12:48 05/02/18 12:48 05/02/18 12:48 - General well developed, no distress - Eyes PERRL - ENT normal pinna - Neck no masses - Respiratory normal expansion - Cardiovascular Rhythm: regular - Abdomen Abdomen: soft, non tender Assessment and Plan Assessment: GI bleed. We'll perform EGD and colonoscopy.
[2018-05-02 15:00] VITALS: BP 176/72; PULSE 74
--- NOTE | 2018-05-03 11:49 | P.OP ---
Date of Procedure: 05/02/18 Preoperative Diagnosis: GI bleed Postoperative Diagnosis: Antral gastritis Hiatal hernia Esophagitis Normal colon Procedure(s) Performed: EGD Colonoscopy Anesthesia: MAC Surgeon: Tan Lamb Pathology: other (Antrum, esophagus) Condition: stable Disposition: PACU Description of Procedure: The patient's placed on the endoscopy table in the lateral position. He received IV sedation. The gastroscope placed oropharynx passed in the esophagus and stomach. Scope then placed through the pylorus. The first and second portion of the duodenum appeared normal. Scope was then brought back the antrum and this appeared mildly inflamed. A biopsies performed. Scope was then retroflexed and the remainder some appeared normal. There was a hiatal hernia visualized. The GE junction was at 38 cm. The distal esophagus appeared mildly inflamed a biopsies performed. The proximal esophagus appeared normal. Scope was withdrawn for patient.
--- NOTE | 2018-05-04 11:31 | CDI ---
Date: 05/04/18 CDS/Slide Fastener Repairer Name: Pam Fairbanks Phone: If any questions, call Mariel Brizuela Master Merchandiser at [phone] Patient Name: Bladimir March Admit Date: 05/02/18 Discharge Date: 05/02/18 ATTENTION: The [facility] Coding Staff appreciate your assistance in clarifying documentation. Please respond to the clarification below the line at the bottom and electronically sign. The [facility] Coding staff will review the response and follow-up if needed. Please note: Queries are made part of the Legal Health Record. If you have any questions, please contact the Master Merchandiser. Dear Dr. Lamb, Please provide clarification as to what procedures were performed. The Operative note under Procedures states and EGD and colonoscopy were performed. i do not see any dictation in the body of the procedure note that documents the colonoscopy. Also please provide clarification as to if any of the discovered diagnoses were the cause of the GI bleed. Thank you for your kind consideration. Addendum dictated MTDD
== END 2018-05-02 15:20 | disposition home or self-care (01) ==
LOC: ORWHC2ENDO 12:16
PROVIDERS: ATTEND Surgery
DX: K29.50 Unspecified chronic gastritis without bleeding (principal); K20.0 Eosinophilic esophagitis; K44.9 Diaphragmatic hernia without obstruction or gangrene; I10 Essential (primary) hypertension; I48.91 Unspecified atrial fibrillation; J44.9 Chronic obstructive pulmonary disease, unspecified; E78.5 Hyperlipidemia, unspecified; H40.9 Unspecified glaucoma; Z87.891 Personal history of nicotine dependence; Z79.01 Long term (current) use of anticoagulants; Z79.899 Other long term (current) drug therapy; G62.9 Polyneuropathy, unspecified
CPT/HCPCS: 88305; 45378; 43239; J2001; J2704

== ENCOUNTER → 2018-12-29 | Outpatient (CLI) | payer MEDICARE, BC ==
--- NOTE | 2018-12-29 13:13 | US ---
EXAMINATION TYPE: US venous doppler duplex LE RT DATE OF EXAM: 12/29/2018 12:34 PM COMPARISON: US 2017 CLINICAL HISTORY: I80.9 Phlebitis and thrombophlebitis of unspecifie. Pain right leg x 2 weeks. Pt fe ll. Pt on blood thinners. SIDE PERFORMED: Right TECHNIQUE: The lower extremity deep venous system is examined utilizing real time linear array sonog ravi with graded compression, doppler sonography and color-flow sonography. VESSELS IMAGED: External Iliac Vein (EIV) Common Femoral Vein Deep Femoral Vein Greater Saphenous Vein * Femoral Vein Popliteal Vein Small Saphenous Vein * Proximal Calf Veins (* superficial vessels) Right Leg: No evidence of DVT in the right lower extremity at this time. Limited due to edema. IMPRESSION: No sonographic evidence of deep venous arthrosis within the right lower extremity. Subcu taneous edema is noted.
== END | disposition home or self-care (01) ==
LOC: RADUSWWP 11:52
PROVIDERS: ATTEND Physical Medicine & Rehabilitation
DX: R60.9 Edema, unspecified (principal); I89.0 Lymphedema, not elsewhere classified; I48.91 Unspecified atrial fibrillation

== ENCOUNTER → 2019-01-02 | Outpatient (CLI) | payer MEDICARE, BC ==
--- NOTE | 2019-01-03 10:26 | NM ---
EXAMINATION TYPE: NM bone scan whole body DATE OF EXAM: 01/02/2019 COMPARISON: Prior plain film 12/29/2018 from outside institution and CT abdomen pelvis 03/03/2018 HISTORY: Radiculopathy lumbar region, right leg and left arm pain, trauma 2 weeks prior Delayed whole-body scanning was performed following the injection of 24 mCi Tc 99m MDP. Images acqui red 3.5 hours post injection. FINDINGS: Multiple anterior ribs to include 7, 8 and ninth, 10th ribs on the left show focal increased radiopha rmaceutical uptake consistent with probable rib fractures, correlate for history of trauma and tender ness at this site. The left wrist also shows increased uptake. Right knee, possibly in the level of t he proximal fibula shows increased radio pharmaceutical uptake at the radial aspect. There is a mild S-shaped thoracic lumbar scoliosis. Some mild increased uptake at the superior endplate of L1, possib ly L2 suggests mild superior endplate compression fractures which may be subacute. Uptake within the left hand at the proximal interphalangeal joints of the second and third digits, carpometacarpal join t of the first digit could be due to arthropathy or posttraumatic change. Uptake within the right lynn d is more mild at the carpometacarpal joint of the first digit, interphalangeal joints, there is upta ke in the knees, feet, shoulders and sternoclavicular joints which is likely due to degenerative pierre ge. IMPRESSION: Posttraumatic changes as described, correlate for possible right proximal fibular fracture, left wris t fracture, rib fractures on the left, additional findings above.
== END | disposition home or self-care (01) ==
LOC: RADNMMAIN 10:48
PROVIDERS: ATTEND Physical Medicine & Rehabilitation
DX: M48.062 Spinal stenosis, lumbar region with neurogenic claudication (principal); M51.16 Intervertebral disc disorders with radiculopathy, lumbar region; M51.17 Intervertebral disc disorders with radiculopathy, lumbosacral region; M47.26 Other spondylosis with radiculopathy, lumbar region; M96.1 Postlaminectomy syndrome, not elsewhere classified; Z98.1 Arthrodesis status
CPT/HCPCS: 78306; A9503

== ENCOUNTER 2019-01-25 16:28 | Inpatient (IN) | payer MEDICARE, BC ==
[2019-01-25 17:02] LABS: Basophils % (A) 0 %; Eosinophils # (A) 0.2 k/uL (0-0.7); Eosinophils % (A) 2 %; HCT 44.5 % (39.0-53.0); HGB 14.1 gm/dL (13.0-17.5); Hypochromasia Slight; Lymphocytes % (A) 11 %; MCH 27.4 pg (25.0-35.0); MCHC 31.7 g/dL (31.0-37.0); MCV 86.4 fL (80.0-100.0); Monocytes # (A) 0.4 k/uL (0-1.0); Monocytes % (A) 4 %; Neutrophils # (A) 7.8 k/uL (1.3-7.7); Neutrophils % (A) 82 %; Platelet Count 175 k/uL (150-450); RBC 5.15 m/uL (4.30-5.90); RDW 14.5 % (11.5-15.5); WBC 9.4 k/uL (3.8-10.6)
--- NOTE | 2019-01-25 17:08 | ED ---
Arrhythmia/Palpitations HPI - General Chief Complaint: Arrhythmia/Palpitations Stated Complaint: bradycardia Time Seen by Provider: 01/25/19 16:30 Source: patient Mode of arrival: EMS Limitations: no limitations - History of Present Illness Initial Comments: The patient is an 79-year-old male with past medical history of A. fib who presents to the emergency department with dizziness and syncope. The patient states that earlier today he did not feel well and ended up having a syncopal episode in his living room. He found himself on the floor. Admits that he scraped up his knees. Denies any headache, neck pain, back pain, chest pain or shortness of breath. He denies any pain in his extremities. He does take Xarelto. He presented to [facility] where they found the patient to be in a normal sinus rhythm however the patient will have significant bradycardia where his heart rate will decrease into the 20s. Laboratory studies were pe rformed and the patient had a chest x-ray. He was then transferred to our hospital for cardiology consult. The patient reports that he was prescribed flecainide and Toprol. He saw his congressional district aide in office on . His congressional district aide was going to increase his dose of flecainide as he was still in afib in the office. The patient got home and they were attempting to make these changes when family found that the patient was never on his flecainide. Reports that he did start taking his original dose prescribed. He has always been taking his Toprol. He denies accidentally overdosing on his medications. There are no other alleviating, precipitating or modifying factors. - Related Data Home Medications Medication Instructions Recorded Confirmed Furosemide [Lasix] 20 mg PO BID PRN 09/04/15 01/25/19 Latanoprost Ophth [Xalatan 0.005%] 1 drops BOTH EYES HS 09/04/15 01/25/19 Rivaroxaban [Xarelto] 20 mg PO HS 09/04/15 01/25/19 Tiotropium 18 Mcg/Puff [Spiriva] 1 cap INHALATION RT-DAILY 09/04/15 01/25/19 Tamsulosin [Flomax] 0.4 mg PO DAILY 11/12/17 01/25/19 Atorvastatin [Lipitor] 60 mg PO HS 02/14/18 01/25/19 Flecainide [Tambocor] 100 mg PO HS 01/25/19 01/25/19 Previous Rx's Medication Instructions Recorded Metoprolol Tartrate 25 mg PO BID #180 tab 09/09/15 Levothyroxine Sodium [Synthroid] 25 mcg PO DAILY@0630 tab 01/28/19 Allergies Allergy/AdvReac Type Severity Reaction Status Date / Time No Known Allergies Allergy Verified 01/25/19 16:50 Review of Systems ROS Statement: Those systems with pertinent positive or pertinent negative responses have been documented in the HPI. ROS Other: All systems not noted in ROS Statement are negative. Past Medical History Past Medical History: Atrial Fibrillation, COPD, Eye Disorder, Hyperlipidemia, Hypertension Additional Past Medical History / Comment(s): glaucoma, hx neuropathy, History of Any Multi-Drug Resistant Organisms: None Reported Past Surgical History: Back Surgery, Cholecystectomy, Hernia Repair Additional Past Surgical History / Comment(s): colonoscopy, surgery for pinched nerve in back Past Anesthesia/Blood Transfusion Reactions: No Reported Reaction Past Psychological History: No Psychological Hx Reported Smoking Status: Former smoker Past Alcohol Use History: None Reported Past Drug Use History: None Reported - Past Family History Mother Family Medical History: No Reported History Father Family Medical History: AICD/Pacemaker, Coronary Artery Disease (CAD), Respirat ory Disorder Additional Family Medical History / Comment(s): Pacemaker General Exam Limitations: no limitations General appearance: alert, in no apparent distress Head exam: Present: atraumatic, normocephalic, normal inspection Eye exam: Present: normal appearance, PERRL, EOMI. Absent: scleral icterus, conjunctival injection, periorbital swelling ENT exam: Present: normal exam, mucous membranes moist Neck exam: Present: normal inspection. Absent: tenderness, meningismus, lymphadenopathy Respiratory exam: Present: normal lung sounds bilaterally. Absent: respiratory distress, wheezes, rales, rhonchi, stridor Cardiovascular Exam: Present: regular rate, normal rhythm, normal heart sounds, other (The patient will have episodes where he becomes significantly bradycardic into the 20s). Absent: systolic murmur, diastolic murmur, rubs, gallop, clicks GI/Abdominal exam: Present: soft, normal bowel sounds. Absent: distended, te nderness, guarding, rebound, rigid Extremities exam: Present: normal inspection, full ROM, normal capillary refill. Absent: tenderness, pedal edema, joint swelling, calf tenderness Back exam: Present: normal inspection Neurological exam: Present: alert, oriented X3, CN II-XII intact Psychiatric exam: Present: normal affect, normal mood Skin exam: Present: warm, dry, intact, normal color. Absent: rash Course Vital Signs 01/25/19 01/25/19 01/25/19 16:30 17:00 17:30 Temperature 97.3 F L Pulse Rate 79 80 80 Respiratory 16 15 12 Rate Blood Pressure 119/92 106/86 113/83 O2 Sat by Pulse 99 100 99 Oximetry 01/25/19 01/25/19 18:00 18:30 Temperature 97.8 F Pulse Rate 85 81 Respiratory 14 18 Rate Blood Pressure 110/78 108/78 O2 Sat by Pulse 100 98 Oximetry - Reevaluation(s) Reevaluation #1: 01/25/19 17:03 I did discuss the case with Dr. Reyes at 1655. He recommends to continue the patient's flecainide however stop his beta aditya. If his blood pressure is stable, he may be admitted to the telemetry floor. EKG Findings - EKG Comments: EKG Findings:: EKG demonstrates a normal sinus rhythm with a ventricular rate of 82. NC interval 202. QRS 90. QTc 469. No acute ST segment elevations or depressions concerning for ischemic changes. Medical Decision Making - Medical Decision Making Upon arrival the patient was immediately placed in the trauma bay 2. He is hooked to continuous pulse ox and cardiac monitoring. He is placed on the [employer] heart monitor. A 12-lead EKG is performed which demonstrates a sinus rhythm with a ventricular rate of 80. I did review the packet that was sent with him. I did repeat laboratory studies. I called and discussed the case with Dr. Reyes at 1655. He did recommend continuing the patient's flecainide but discontinuing his metoprolol. The patient will be admitted to Dr. Naranjo. I did call discuss case Dr. Naranjo at 1750. Dr. Naranjo does recommend admission to the intensive care unit. I called and discussed the case with Dr. Beyer at 1815. He does accept admission to ICU. The patient did have a CT of his brain and C-spine performed as he did have a syncopal episode at home and is unsure if he hit his head and is on Xarelto. CT of the brain and C-spine demonstrates no acute findings. Chest x-ray is also unremarkable. The patient was transported to the ICU in stable condition. - Differential Diagnosis sinus bradycardia, sick sinus syndrome, unintentional beta aditya overdose - Lab Data Result diagrams: 01/28/19 06:29 01/28/19 06:29 Lab Results 01/25/19 01/25/19 01/25/19 Range/Units 16:53 16:53 16:53 WBC 9.4 (3.8-10.6) k/uL RBC 5.15 (4.30-5.90) m/uL Hgb 14.1 (13.0-17.5) gm/dL Hct 44.5 (39.0-53.0) % MCV 86.4 (80.0-100.0) fL MCH 27.4 (25.0-35.0) pg MCHC 31.7 (31.0-37.0) g/dL RDW 14.5 (11.5-15.5) % Plt Count 175 (150-450) k/uL Neutrophils % 82 % Lymphocytes % 11 % Monocytes % 4 % Eosinophils % 2 % Basophils % 0 % Neutrophils # 7.8 H (1.3-7.7) k/uL Lymphocytes # 1.0 (1.0-4.8) k/uL Monocytes # 0.4 (0-1.0) k/uL Eosinophils # 0.2 (0-0.7) k/uL Basophils # 0.0 (0-0.2) k/uL Hypochromasia Slight PT 12.4 H (9.0-12.0) sec INR 1.2 H (<1.2) APTT 22.6 (22.0-30.0) sec Sodium 137 (137-145) mmol/L Potassium 4.9 (3.5-5.1) mmol/L Chloride 106 (98-107) mmol/L Carbon Dioxide 20 L (22-30) mmol/L Anion Gap 11 mmol/L BUN 15 (9-20) mg/dL Creatinine 0.81 (0.66-1.25) mg/dL Est GFR (CKD-EPI)AfAm >90 (>60 ml/min/1.73 sqM) Est GFR (CKD-EPI)NonAf 84 (>60 ml/min/1.73 sqM) Glucose 108 H (74-99) mg/dL Calcium 9.0 (8.4-10.2) mg/dL Magnesium 2.4 H (1.6-2.3) mg/dL Total Bilirubin 1.3 (0.2-1.3) mg/dL AST 33 (17-59) U/L ALT 12 L (21-72) U/L Alkaline Phosphatase 159 H (38-126) U/L Creatine Kinase 35 L (55-170) U/L Troponin I (0.000-0.034) ng/mL Total Protein 7.4 (6.3-8.2) g/dL Albumin 4.3 (3.5-5.0) g/dL TSH 5.360 H (0.465-4.680) mIU/L Free T4 1.98 (0.78-2.19) ng/dL 01/25/19 Range/Units 16:53 WBC (3.8-10.6) k/uL RBC (4.30-5.90) m/uL Hgb (13.0-17.5) gm/dL Hct (39.0-53.0) % MCV (80.0-100.0) fL MCH (25.0-35.0) pg MCHC (31.0-37.0) g/dL RDW (11.5-15.5) % Plt Count (150-450) k/uL Neutrophils % % Lymphocytes % % Monocytes % % Eosinophils % % Basophils % % Neutrophils # (1.3-7.7) k/uL Lymphocytes # (1.0-4.8) k/uL Monocytes # (0-1.0) k/uL Eosinophils # (0-0.7) k/uL Basophils # (0-0.2) k/uL Hypochromasia PT (9.0-12.0) sec INR (<1.2) APTT (22.0-30.0) sec Sodium (137-145) mmol/L Potassium (3.5-5.1) mmol/L Chloride (98-107) mmol/L Carbon Dioxide (22-30) mmol/L Anion Gap mmol/L BUN (9-20) mg/dL Creatinine (0.66-1.25) mg/dL Est GFR (CKD-EPI)AfAm (>60 ml/min/1.73 sqM) Est GFR (CKD-EPI)NonAf (>60 ml/min/1.73 sqM) Glucose (74-99) mg/dL Calcium (8.4-10.2) mg/dL Magnesium (1.6-2.3) mg/dL Total Bilirubin (0.2-1.3) mg/dL AST (17-59) U/L ALT (21-72) U/L Alkaline Phosphatase (38-126) U/L Creatine Kinase (55-170) U/L Troponin I <0.012 (0.000-0.034) ng/mL Total Protein (6.3-8.2) g/dL Albumin (3.5-5.0) g/dL TSH (0.465-4.680) mIU/L Free T4 (0.78-2.19) ng/dL Disposition Clinical Impression: Syncope, Sinus bradycardia Disposition: ADMITTED IP TO THIS [facility] Condition: Serious Is patient prescribed a controlled substance at d/c from ED?: No Decision to Admit Reason: Admit from EC Decision Date: 01/25/19 Decision Time: 17:40
[2019-01-25 17:14] LABS: ALT 12 U/L (21-72); AST 33 U/L (17-59); African American GFR (CKD) >90 (>60 ml/min/1.73 sqM); Albumin 4.3 g/dL (3.5-5.0); Alkaline Phosphatase 159 U/L (38-126); Anion Gap 11 mmol/L; Blood Urea Nitrogen 15 mg/dL (9-20); Carbon Dioxide 20 mmol/L (22-30); Chloride 106 mmol/L (98-107); Creatine Kinase 35 U/L (55-170); Glucose 108 mg/dL (74-99); Magnesium 2.4 mg/dL (1.6-2.3); Sodium 137 mmol/L (137-145); Total Bilirubin 1.3 mg/dL (0.2-1.3); Total Protein 7.4 g/dL (6.3-8.2)
[2019-01-25 17:15] LABS: INR 1.2 (<1.2); Partial Thromboplastin Time 22.6 sec (22.0-30.0); Prothrombin Time 12.4 sec (9.0-12.0)
[2019-01-25 17:19] LABS: Potassium 4.9 mmol/L (3.5-5.1)
[2019-01-25] MEDS ORDERED: NALOXONE 0.4 MG/ML 1 ML VIAL IV PRN (18:03)
[2019-01-25 18:22] LABS: T4, Free (Free Thyroxine) 1.98 ng/dL (0.78-2.19)
--- NOTE | 2019-01-25 18:32 | CT ---
EXAMINATION TYPE: CT brain robert suarez DATE OF EXAM: 01/25/2019 COMPARISON: None HISTORY: Bradycardia. Headache. Neck pain. CT DLP: 1397.7 mGycm Automated exposure control for dose reduction was used. TECHNIQUE: CT scan of the head and cervical spine are performed without contrast. FINDINGS: There is cerebral cortical atrophy. There is no mass effect nor midline shift. There is n o sign of intracranial hemorrhage. Calvarium is intact. Cervical vertebra have fairly normal alignment. There is mild narrowing at C5-6 C6-7 disc spaces with spurring of the endplates. Facet joints are intact. The skull base is intact. There is no evidence o f cervical spine fracture. There are bilateral pleural effusions noted. IMPRESSION: Cerebral atrophy. No acute intracranial abnormality. Mild spondylotic changes in the cervical spine. No fracture.
[2019-01-25 19:03] LABS: Glucose,Whole Blood 97 mg/dL (75-99)
[2019-01-25] MEDS ORDERED: FUROSEMIDE 20 MG TAB PO PRN (19:49)
[2019-01-25 19:57] VITALS: BMI 29.8
[2019-01-25] MEDS: ATORVASTATIN 20 MG TAB PO SCH (21:44)
[2019-01-25] MEDS: LATANOPROST 0.005% OPHTH DROPS 2.5 ML BTL BOTH EYES SCH (21:45)
[2019-01-25] MEDS: RIVAROXABAN 20 MG TAB PO SCH (21:45)
[2019-01-25] MEDS: FLECAINIDE 50 MG TAB PO SCH (21:45)
[2019-01-26 05:09] LABS: Basophils # (A) 0.1 k/uL (0-0.2); Basophils % (A) 1 %; Eosinophils # (A) 0.4 k/uL (0-0.7); Eosinophils % (A) 4 %; HCT 40.1 % (39.0-53.0); HGB 13.5 gm/dL (13.0-17.5); Hypochromasia Slight; Lymphocytes # (A) 1.2 k/uL (1.0-4.8); Lymphocytes % (A) 12 %; MCH 27.8 pg (25.0-35.0); MCHC 33.7 g/dL (31.0-37.0); MCV 82.7 fL (80.0-100.0); Mean Platelet Volume 7.6; Monocytes # (A) 0.7 k/uL (0-1.0); Monocytes % (A) 7 %; Neutrophils # (A) 7.9 k/uL (1.3-7.7); Neutrophils % (A) 77 %; Platelet Count 120 k/uL (150-450); RBC 4.84 m/uL (4.30-5.90); RDW 14.7 % (11.5-15.5); WBC 10.4 k/uL (3.8-10.6)
[2019-01-26 05:33] LABS: African American GFR (CKD) >90 (>60 ml/min/1.73 sqM); Anion Gap 8 mmol/L; Carbon Dioxide 20 mmol/L (22-30); Chloride 109 mmol/L (98-107); Glucose 103 mg/dL (74-99); Magnesium 2.2 mg/dL (1.6-2.3); Sodium 137 mmol/L (137-145)
[2019-01-26 05:34] LABS: Blood Urea Nitrogen 19 mg/dL (9-20); Potassium 5.5 mmol/L (3.5-5.1)
[2019-01-26] MEDS: IPRATROPIUM 0.5 MG/2.5 ML NEBU INHALATION SCH ×4 (08:12→19:18)
[2019-01-26] MEDS: TAMSULOSIN 0.4 MG CAP.ER.24H PO SCH (08:21)
[2019-01-26] MEDS ORDERED: PANTOPRAZOLE 40 MG/10 ML VIAL IV SCH (09:00)
[2019-01-26 09:21] LABS: Appearance,Urine Clear (Clear); Bilirubin,Urine Negative (Negative); Blood,Urine Negative (Negative); Color,Urine Yellow; Glucose,Urine (UA) Negative (Negative); Hyaline Casts,Urine 2 /lpf (0-2); Ketones,Urine Negative (Negative); Leukocyte Esterase,Urine Negative (Negative); Mucus,Urine Moderate /hpf; Nitrite,Urine Negative (Negative); PH, Urine 6.5 (5.0-8.0); Protein,Urine 1+ (Negative); RBC,Urine 1 /hpf (0-5); Specific Gravity,Urine 1.024 (1.001-1.035); Squamous Epithelial Cell,Urine <1 /hpf (0-4)
--- NOTE | 2019-01-26 09:31 | CONS ---
CONSULTATION HISTORY: Mr. March is an 79-year-old male with a history of paroxysmal atrial fibrillation who presented to the emergency room with a syncopal episode. He was transferred from [facility]. The patient had a prior history of atrial fibrillation and subsequently converted to sinus mechanism. He was recently seen in the office with symptoms of progressive dyspnea and fatigue and was noted to be in atrial fibrillation. His medical regimen was adjusted and yesterday he woke up, got to the kitchen and had a syncopal episode. He went to the emergency room at [place], was in sinus mechanism with episode of sinus bradycardia. He had some sinus bradycardia last night but no significant pauses. He continued to be in sinus mechanism. He is feeling better this morning. He is denying any chest pain. He did not have any presyncopal episodes. He did not have any chest discomfort. He did not feel any palpitations. He denies any PND or orthopnea. No significant peripheral edema. He has been feeling weak and short of breath. He as underwent cardioversion in 2016. In the past, his left ventricular systolic function had been preserved. MEDICATIONS: At home included: 1. Flomax 0.4 mg daily. 2. Xarelto 20 mg daily. 3. Metoprolol tartrate 25 mg twice a day. 4. Lasix 20 mg on a p.r.n. basis. 5. Flecainide he was taking at 50 mg twice a day, although he was not taking it on a regular basis before. 6. Lipitor 60 mg daily. REVIEW OF SYSTEMS: RESPIRATORY SYSTEM: He had dyspnea on exertion her fatigue. No recent wheezing or cough. GI SYSTEM: No recent GI bleed. No peptic ulcer disease. SYSTEM: No dysuria or hematuria. NERVOUS SYSTEM: No stroke or seizure. PHYSICAL EXAMINATION: He is an 79-year-old male, alert, oriented, in no apparent distress. Blood pressure 120/70 with a heart rate in 60s. HEAD: Normocephalic eyes. Sclerae anicteric. NECK: Good upstroke, no bruit, no jugular venous distention. HEART: Regular rhythm S1, S2. No S3. Systolic ejection murmur heard at the base. No diastolic murmur. No rub. ABDOMEN: Soft, nontender. Positive bowel sounds. No organomegaly. Obese. EXTREMITIES: No edema. Intact distal pulses. EKG revealed a sinus mechanism, rate of 82, normal axis, interval, normal electrocardiogram. LAB DATA: Lab data revealed a potassium 5.5. NT proBNP of 499. Troponin less than 0.012. TSH of 5.36 and free T4 of 1.98. Hemoglobin of 13.5. CT scan of the head and the cerebrum showed cerebral atrophy with no other significant abnormalities. IMPRESSION: 1. Syncopal episode, probably related to a long rewarming mechanism following conversion from atrial fibrillation to paroxysmal fibrillation. 2. Hypertension. RECOMMENDATIONS: We will continue present therapy. We will proceed with permanent pacemaker implantation tomorrow to be done by Dr. Zapata. Discussed with the patient those findings. He is in full understanding and agreement. Thank you for this consult. We will follow with you. MMODL / IJN: [id number] /
--- NOTE | 2019-01-26 09:32 | P.HPIM ---
History of Present Illness H&P Date: 01/26/19 This is an 79-year-old male patient of Dr. Jaimes. Patient presented with complaints of syncopal episode. Patient reports that he was not feeling well and then passed out in the living room. Patient dates he awoke and was laying on the living room floor patient has a known past medical history of atrial fibrillation in which she is on xarelto, flecainide and toprol. Patient follows with Dr. Reyes. Additional medical history includes COPD, glaucoma, hyperlipidemia, hypertension, cholecystectomy and hernia repair. Patient originally presented to [facility] where he was found to have heart rate that decreases to the 20s. Patient was transferred to [facility] for cardiology consult. CT of head and cervical spine completed showing cerebral atrophy. No acute intracranial abnormality. Mild spondylitic changes in the cervical spine. No fracture. EKG completed showing normal sinus rhythm, low- voltage QRS. Cardiology consult placed. Cardiology recommended continuing Tambocor but holding beta aditya at this time. At this time patient denies any chest pain or shortness of breath. Patient denies nausea vomiting or diarrhea. Patient denies any urinary burning or frequency. Review of Systems Please refer to HPI otherwise unremarkable Past Medical History Past Medical History: Atrial Fibrillation, COPD, Eye Disorder, Hyperlipidemia, Hypertension Additional Past Medical History / Comment(s): glaucoma, hx neuropathy, History of Any Multi-Drug Resistant Organisms: None Reported Past Surgical History: Back Surgery, Cholecystectomy, Hernia Repair Additional Past Surgical History / Comment(s): colonoscopy, surgery for pinched nerve in back Past Anesthesia/Blood Transfusion Reactions: No Reported Reaction Past Psychological History: No Psychological Hx Reported Smoking Status: Former smoker Past Alcohol Use History: None Reported Past Drug Use History: None Reported - Past Family History Mother Family Medical History: No Reported History Father Family Medical History: AICD/Pacemaker, Coronary Artery Disease (CAD), Respiratory Disorder Additional Family Medical History / Comment(s): Pacemaker Medications and Allergies Home Medications Medication Instructions Recorded Confirmed Type Furosemide [Lasix] 20 mg PO BID PRN 09/04/15 01/25/19 History Latanoprost Ophth [Xalatan 0.005%] 1 drops BOTH EYES HS 09/04/15 01/25/19 History Rivaroxaban [Xarelto] 20 mg PO HS 09/04/15 01/25/19 History Tiotropium 18 Mcg/Puff [Spiriva] 1 cap INHALATION RT-DAILY 09/04/15 01/25/19 History Metoprolol Tartrate 25 mg PO BID #180 tab 09/09/15 01/25/19 Rx Tamsulosin [Flomax] 0.4 mg PO DAILY 11/12/17 01/25/19 History Atorvastatin [Lipitor] 60 mg PO HS 02/14/18 01/25/19 History Flecainide [Tambocor] 100 mg PO HS 01/25/19 01/25/19 History Allergies Allergy/AdvReac Type Severity Reaction Status Date / Time No Known Allergies Allergy Verified 01/25/19 16:50 Physical Exam Vitals: Vital Signs Temp Pulse Resp BP Pulse Ox 01/26/19 09:00 73 28 H 108/67 90 L 01/26/19 08:23 78 01/26/19 08:13 77 01/26/19 08:00 98.5 F 79 37 H 118/76 93 L 01/26/19 07:00 79 17 110/70 94 L 01/26/19 06:00 80 60 H 120/71 91 L 01/26/19 05:00 78 22 113/68 92 L 01/26/19 04:00 98.5 F 88 41 H 108/77 94 L 01/26/19 03:00 51 L 30 H 111/66 01/26/19 02:00 87 18 106/90 93 L 01/26/19 01:00 92 20 114/78 94 L 01/26/19 00:00 85 24 110/74 92 L 01/25/19 23:00 89 26 H 109/73 92 L 01/25/19 22:30 85 24 109/73 91 L 01/25/19 22:00 85 23 120/84 92 L 01/25/19 21:30 86 19 120/84 91 L 01/25/19 21:00 90 32 H 120/82 95 01/25/19 20:30 90 11 L 120/82 95 01/25/19 20:00 89 10 L 121/79 96 01/25/19 19:30 98.2 F 87 19 123/95 97 01/25/19 18:30 97.8 F 81 18 108/78 98 01/25/19 18:00 85 14 110/78 100 01/25/19 17:30 80 12 113/83 99 01/25/19 17:00 80 15 106/86 100 01/25/19 16:30 97.3 F L 79 16 119/92 99 Intake and Output 01/25/19 01/26/19 01/26/19 22:59 06:59 14:59 Intake Total 50 200 Output Total 0 0 Balance 50 0 200 Intake: Oral 50 200 Output: Urine 0 0 Other: Voiding Method Urinal Urinal # Voids 1 1 200 # Bowel Movements 1 Weight 99.79 kg 97.4 kg Head normocephalic Neck supple Lungs clear to auscultation bilaterally no wheezing or crackles Heart irregular rate and rhythm S1-S2, no rub or gallop Abdomen is soft nontender nondistended positive bowel sounds no hepatospl enomegaly Extremities no edema Neuro alert and orientated to 3 Results CBC & Chem 7: 01/26/19 05:00 01/26/19 05:00 Labs: Abnormal Lab Results - Last 24 Hours (Table) 01/25/19 01/25/19 01/25/19 Range/Units 16:53 16:53 16:53 Plt Count (150-450) k/uL Neutrophils # 7.8 H (1.3-7.7) k/uL PT 12.4 H (9.0-12.0) sec INR 1.2 H (<1.2) Potassium (3.5-5.1) mmol/L Chloride (98-107) mmol/L Carbon Dioxide 20 L (22-30) mmol/L Glucose 108 H (74-99) mg/dL Magnesium 2.4 H (1.6-2.3) mg/dL ALT 12 L (21-72) U/L Alkaline Phosphatase 159 H (38-126) U/L Creatine Kinase 35 L (55-170) U/L TSH 5.360 H (0.465-4.680) mIU/L 01/26/19 01/26/19 Range/Units 05:00 05:00 Plt Count 120 L (150-450) k/uL Neutrophils # 7.9 H (1.3-7.7) k/uL PT (9.0-12.0) sec INR (<1.2) Potassium 5.5 H (3.5-5.1) mmol/L Chloride 109 H (98-107) mmol/L Carbon Dioxide 20 L (22-30) mmol/L Glucose 103 H (74-99) mg/dL Magnesium (1.6-2.3) mg/dL ALT (21-72) U/L Alkaline Phosphatase (38-126) U/L Creatine Kinase (55-170) U/L TSH (0.465-4.680) mIU/L Thrombosis Risk Factor Assmnt - Choose All That Apply Each Risk Factor Represents 3 Points: History of DVT/PE Thrombosis Risk Factor Assessment Total Risk Factor Score: 3 Thrombosis Risk Factor Assessment Level: Moderate Risk Assessment and Plan Assessment: 1. Syncopal episode likely related to sinus bradycardia. Cardiology consult placed. Patient's beta aditya currently on hold per cardiology per nursing staff possible pacemaker placement on 01/27/2019 2. History of atrial fibrillation. Patient maintained on xarelto for anticoagulation. Patient's beta aditya currently on hold per cardiology services. Patient maintained on Tambocor 3. History of COPD no exacerbation at this time 4. Hyperlipidemia 5. Essential hypertension 6. Glaucoma DVT prophylaxis xarelto. GI prophylaxis Protonix Cardiology consult placed Head CT completed showing cerebral atrophy. No acute intracranial abnormality. Mild spondylitic changes and cervical spine no fracture. Time with Patient: Greater than 30 (Greater than 60% of the total time spent in counseling and coordination of care. I performed an examination of the patient and discussed their management with the Nurse Practitioner. I have reviewed the Nurse Practitioner's notes and agree with the documented findings and plan of care)
[2019-01-26 11:48] LABS: Glucose,Whole Blood 105 mg/dL (75-99)
[2019-01-26] MEDS: FUROSEMIDE 20 MG TAB PO SCH (15:08)
[2019-01-26] MEDS: RIVAROXABAN 20 MG TAB PO SCH (21:11)
[2019-01-26] MEDS: ATORVASTATIN 20 MG TAB PO SCH (21:11)
[2019-01-26] MEDS: FLECAINIDE 50 MG TAB PO SCH (21:13)
[2019-01-26] MEDS: LATANOPROST 0.005% OPHTH DROPS 2.5 ML BTL BOTH EYES SCH (21:14)
[2019-01-27 05:00] LABS: Basophils % (A) 0 %; Eosinophils # (A) 0.5 k/uL (0-0.7); Eosinophils % (A) 5 %; HGB 12.9 gm/dL (13.0-17.5); Hypochromasia Slight; Lymphocytes % (A) 11 %; MCH 27.2 pg (25.0-35.0); MCHC 31.3 g/dL (31.0-37.0); MCV 86.9 fL (80.0-100.0); Mean Platelet Volume 6.5; Monocytes # (A) 0.8 k/uL (0-1.0); Monocytes % (A) 9 %; Neutrophils # (A) 6.8 k/uL (1.3-7.7); Neutrophils % (A) 73 %; Platelet Count 124 k/uL (150-450); RBC 4.72 m/uL (4.30-5.90); RDW 14.6 % (11.5-15.5); WBC 9.3 k/uL (3.8-10.6)
[2019-01-27] MEDS ORDERED: ceFAZolin IN SWFI 2 GM/20 ML SYRINGE IVP ONE (05:00)
[2019-01-27] MEDS ORDERED: ceFAZolin 1,000 MG in SODIUM CHLORIDE 0.9% IRRIGATIO 250 ML IRRIGATION ONE (05:00)
[2019-01-27 05:13] LABS: African American GFR (CKD) >90 (>60 ml/min/1.73 sqM); Anion Gap 11 mmol/L; Blood Urea Nitrogen 17 mg/dL (9-20); Calcium 8.9 mg/dL (8.4-10.2); Carbon Dioxide 19 mmol/L (22-30); Chloride 105 mmol/L (98-107); Glucose 102 mg/dL (74-99); Potassium 4.3 mmol/L (3.5-5.1); Sodium 135 mmol/L (137-145)
[2019-01-27] MEDS: PANTOPRAZOLE 40 MG TABLET PO SCH (06:34)
[2019-01-27] MEDS: LEVOTHYROXINE 25 MCG TAB PO SCH (06:34)
[2019-01-27] MEDS: IPRATROPIUM 0.5 MG/2.5 ML NEBU INHALATION SCH ×4 (08:28→19:38)
--- NOTE | 2019-01-27 08:49 | PN ---
PROGRESS NOTE Mr. March is an 79-year-old male who has a history of paroxysmal atrial fibrillation who presented with syncopal episode, probably related to rewarming mechanism. He is feeling well this morning. His breathing is stable. He denies any chest pain. He had no further episode of atrial fibrillation. Hemodynamically, he is stable. He is scheduled to undergo permanent pacemaker implantation today. He continues to be on Lipitor 60 mg daily, flecainide 50 mg twice a day, Xarelto 20 mg daily, Lasix 20 mg twice a day. PHYSICAL EXAMINATION: Blood pressure 115/70 with a heart rate in the 90s. LUNGS: Clear. HEART: Regular rate and rhythm, S1, S2. No S3. No rub. ABDOMEN: Soft, nontender. EXTREMITIES: No edema. LAB DATA: Revealed a BUN and creatinine of 17 and 0.67, potassium 4.3, hemoglobin of 12.9. IMPRESSION: 1. Syncopal episode, most likely related to a brief sinus pause with prolonged rewarming mechanism, post conversion. 2. Paroxysmal atrial fibrillation. 3. Hyperlipidemia. RECOMMENDATION: I will continue present therapy patient is scheduled. We will continue on the flecainide. He is scheduled to undergo the permanent pacemaker implantation today and depending on his progress further recommendation will be made. MMODL / IJN: [id number] /
[2019-01-27] MEDS ORDERED: FLECAINIDE 50 MG TAB PO SCH (09:00)
[2019-01-27] MEDS: FLECAINIDE 50 MG TAB PO SCH ×2 (09:16→21:20)
[2019-01-27] MEDS: TAMSULOSIN 0.4 MG CAP.ER.24H PO SCH (09:16)
[2019-01-27] MEDS ORDERED: LIDOCAINE 1% INJ 10MG/ML (20 ML MDV) ONE ×2 (10:07)
[2019-01-27] MEDS ORDERED: SODIUM CHLORIDE 0.9% 250 ML IV ONE (10:30)
[2019-01-27] MEDS ORDERED: IOPAMIDOL-250 50ML BTL IV ONE (10:40)
[2019-01-27] MEDS ORDERED: MIDAZOLAM (PF) 2 MG/2 ML VIAL IV ONE (11:12)
[2019-01-27] MEDS ORDERED: LIDOCAINE 1% INJ 10MG/ML (20 ML MDV) SQ ONE ×3 (11:14→11:19)
[2019-01-27] MEDS ORDERED: HYDROcodone/APAP 5-325MG 1 EACH TAB PO PRN (12:22)
[2019-01-27] MEDS ORDERED: ACETAMINOPHEN TAB 325 MG TAB PO PRN (12:22)
[2019-01-27] MEDS ORDERED: ACETAMINOPHEN IV (For NPO) 1,000 MG in EMPTY BAG 1 BAG IVPB ONE (12:22)
--- NOTE | 2019-01-27 12:27 | P.PCN ---
Preoperative Diagnosis: Patient underwent EP procedure under conscious sedation/moderate sedation, monitoring of the level of consciousness and physiologic parameters including but not limited to vital signs and oxygenation. Patient tolerated the procedure well without any acute complications. Dual-chamber pacemaker implant under conscious sedation Start time: 1114 Stop time: 1210
--- NOTE | 2019-01-27 12:32 | P.PRLE ---
RE: Bladimir March Dear Hugh Mr. Mancuso underwent dual-chamber pacemaker implantation for syncope associated with long postconversion pauses with bradycardia successfully without any acute complications He will continue anticoagulation his Medications and will follow-up with you and Dr. Reyes as before Thank you for entrusting me with the care of the patient Warm regards Sincerely Anuj Zapata
--- NOTE | 2019-01-27 12:55 | PCN ---
PROCEDURE NOTE Mr. March is an 79-year-old male patient who presented was episodes of syncope. These episodes were brief. When EMS arrived, his heart rate was less than 30 beats per minute, severe sinus bradycardia. He has a history of atrial fibrillation. He was asked to increase the dose of flecainide, but he did not do so and has not been taking his flecainide regularly because of its neurologic/mental status defects on him. He apparently had a post-conversion pause and became severely bradycardic and lost consciousness. Otherwise, his heart rates are in the normal range today. A dual-chamber pacemaker was recommended for management of sick sinus syndrome/tachy- dav syndrome to allow for management of atrial fibrillation. Patient was brought to the EP lab in a fasting state. Written informed consent was obtained prior to the procedure. The left pectoral area was prepped and draped as per protocol; 1% lidocaine was used for local anesthesia. A 4 cm incision was made parallel to the deltopectoral groove, about 1.5 cm medial to it. The incision was carried down to the level of the pectoralis muscle. A subfascial pocket was made. Hemostasis was assured. The left axillary vein was accessed at two separate points under fluoroscopy and via appropriately-sized introducer sheaths, 2 leads were positioned in the right heart. The atrial lead was a screw-in lead, positioned in the right atrial appendage, and this was model #2088TC, 46 cm length and serial number [id number]. P waves were 1.6 mV, pacing impedance 480 ohms, pacing threshold 0.5 V at 0.4 milliseconds, 10 V test negative. The right ventricular lead was positioned just above the RV apex. A [employer] model #2088TC, 50 cm in length and serial number [id number]. R-waves 10.5 mV, pacing impedance 750 ohms, pacing threshold 1 V at 0.4 milliseconds, 10 V test negative. Both leads were secured to the underlying pectoralis fascia using 2 nonabsorbable sutures. Pocket was irrigated with antibiotic solution. Leads were connected to the generator ([employer] model number XD2020, serial #[id number]. The lead and the generator were then placed in subfascial pocket. The wound was closed in 3 layers and dressed per protocol. RESULT: Successful dual-chamber pacemaker implantation for sick sinus syndrome with tachybrady syndrome/post-conversion pauses associated with syncope and subsequent severe bradycardia. PLAN: Pacemaker has been programmed to DDD mode at 50-130 ppm with VIP mode turned on. Continue anticoagulation and antiarrhythmic drug therapy per Dr. Reyes. MMBRIAN / CANDI: [id number] /
[2019-01-27] MEDS: FUROSEMIDE 20 MG TAB PO SCH ×2 (13:01→21:20)
--- NOTE | 2019-01-27 13:56 | P.PN ---
Subjective Progress Note Date: 01/27/19 This is an 79-year-old male patient of Dr. Jaimes. Patient presented with complaints of syncopal episode. Patient reports that he was not feeling well and then passed out in the living room. Patient dates he awoke and was laying on the living room floor patient has a known past medical history of atrial fibrillation in which she is on xarelto, flecainide and toprol. Patient follows with Dr. Reyes. Additional medical history includes COPD, glaucoma, hyperlipidemia, hypertension, cholecystectomy and hernia repair. Patient originally presented to [facility] where he was found to have heart rate that decreases to the 20s. Patient was transferred to [facility] for cardiology consult. CT of head and cervical spine completed showing cerebral atrophy. No acute intracranial abnormality. Mild spondylitic changes in the cervical spine. No fracture. EKG completed showing normal sinus rhythm, low- voltage QRS. Cardiology consult placed. Cardiology recommended continuing Tambocor but holding beta aditya at this time. At this time patient denies any chest pain or shortness of breath. Patient denies nausea vomiting or diarrhea. Patient denies any urinary burning or frequency. On 01/27/2019 status post pacemaker placement with Dr. Zapata. Patient is currently sitting up in chair. Bedside. Patient alert and oriented 3. Patient denies chest pain or shortness of breath. Patient denies nausea vomiting or diarrhea. Objective - Vital Signs Vital signs: Vital Signs Temp 98.2 F 01/27/19 12:40 Pulse 89 01/27/19 09:00 Resp 14 01/27/19 12:48 BP 134/88 01/27/19 12:40 Pulse Ox 95 01/27/19 12:40 Intake & Output 01/26/19 01/27/19 01/27/19 18:59 06:59 18:59 Intake Total 400 100 Output Total 150 550 100 Balance 250 -550 0 Weight 96.6 kg Intake: IV 100 Oral 400 Output: Urine 150 550 100 Other: Voiding Method Urinal Urinal # Voids 1 1 0 - Exam Head normocephalic Neck supple Lungs clear to auscultation bilaterally no wheezing or crackles Heart irregular rate and rhythm S1-S2, no rub or gallop Abdomen is soft nontender nondistended positive bowel sounds no hepatosplenomegaly Extremities no edema Neuro alert and orientated to 3 - Labs CBC & Chem 7: 01/27/19 04:41 01/27/19 04:41 Labs: Abnormal Lab Results - Last 24 Hours (Table) 01/27/19 01/27/19 Range/Units 04:41 04:41 Hgb 12.9 L (13.0-17.5) gm/dL Plt Count 124 L (150-450) k/uL Sodium 135 L (137-145) mmol/L Carbon Dioxide 19 L (22-30) mmol/L Glucose 102 H (74-99) mg/dL Assessment and Plan Assessment: 1. Status post pacemaker placement for Syncopal episode likely related to sinus bradycardia. Cardiology consult placed. Patient's beta aditya currently on hold per cardiology. Patient is currently postop day 0 status post pacemaker placement 2. History of atrial fibrillation. Patient maintained on xarelto for anticoagulation. Patient's beta aditya currently on hold per cardiology services. Patient maintained on Tambocor 3. History of COPD no exacerbation at this time 4. Hyperlipidemia 5. Essential hypertension 6. Glaucoma 7. Increased weakness. Will consult physical therapy and occupational therapy DVT prophylaxis xarelto. GI prophylaxis Protonix Head CT completed showing cerebral atrophy. No acute intracranial abnormality. Mild spondylitic changes and cervical spine no fracture. Physical therapy and occupational therapy consulted. Social work consulted for discharge planning I performed an examination of the patient and discussed their management with the Nurse Practitioner. I have reviewed the Nurse Practitioner's notes and agree with the documented findings and plan of care
[2019-01-27] MEDS: ceFAZolin IN SWFI 2 GM/20 ML SYRINGE IVP SCH ×2 (17:01→23:30)
[2019-01-27] MEDS: RIVAROXABAN 20 MG TAB PO SCH (21:19)
[2019-01-27] MEDS: ATORVASTATIN 20 MG TAB PO SCH (21:19)
[2019-01-27] MEDS: LATANOPROST 0.005% OPHTH DROPS 2.5 ML BTL BOTH EYES SCH (21:22)
[2019-01-28] MEDS: LEVOTHYROXINE 25 MCG TAB PO SCH (05:56)
[2019-01-28] MEDS: ceFAZolin IN SWFI 2 GM/20 ML SYRINGE IVP SCH ×2 (05:56→10:49)
[2019-01-28] MEDS: PANTOPRAZOLE 40 MG TABLET PO SCH (06:47)
[2019-01-28 07:28] LABS: Basophils % (A) 0 %; Eosinophils # (A) 0.5 k/uL (0-0.7); Eosinophils % (A) 7 %; HCT 39.1 % (39.0-53.0); HGB 12.1 gm/dL (13.0-17.5); Hypochromasia Moderate; Lymphocytes # (A) 0.8 k/uL (1.0-4.8); Lymphocytes % (A) 10 %; MCH 26.8 pg (25.0-35.0); MCHC 31.1 g/dL (31.0-37.0); MCV 86.3 fL (80.0-100.0); Mean Platelet Volume 7.5; Monocytes # (A) 0.6 k/uL (0-1.0); Monocytes % (A) 8 %; Neutrophils # (A) 5.4 k/uL (1.3-7.7); Neutrophils % (A) 72 %; Platelet Count 134 k/uL (150-450); RBC 4.53 m/uL (4.30-5.90); RDW 14.9 % (11.5-15.5); WBC 7.4 k/uL (3.8-10.6)
--- NOTE | 2019-01-28 07:29 | XR ---
EXAMINATION TYPE: XR chest 2V DATE OF EXAM: 01/28/2019 COMPARISON: 01/25/2019 TECHNIQUE: PA and lateral views submitted. HISTORY: Shortness of breath FINDINGS: Cardiomegaly, diffuse interstitial pattern, bilateral consolidation and pleural effusion are stable. Double lead pacemaker seen with no sizable pneumothorax. Proximal lead lies the right atrium and dist al lead in right ventricle. Hypertrophic and degenerative change of the spine. IMPRESSION: 1. Pacemaker placement with no sizable pneumothorax. 2. CHF.
[2019-01-28 07:32] LABS: ALT 19 U/L (21-72); AST 20 U/L (17-59); African American GFR (CKD) >90 (>60 ml/min/1.73 sqM); Albumin 3.2 g/dL (3.5-5.0); Alkaline Phosphatase 120 U/L (38-126); Anion Gap 11 mmol/L; Blood Urea Nitrogen 17 mg/dL (9-20); Calcium 8.7 mg/dL (8.4-10.2); Carbon Dioxide 21 mmol/L (22-30); Chloride 106 mmol/L (98-107); Glucose 96 mg/dL (74-99); Potassium 4.2 mmol/L (3.5-5.1); Sodium 138 mmol/L (137-145); Total Bilirubin 1.2 mg/dL (0.2-1.3)
[2019-01-28] MEDS: IPRATROPIUM 0.5 MG/2.5 ML NEBU INHALATION SCH ×3 (08:14→15:37)
[2019-01-28] MEDS: FUROSEMIDE 20 MG TAB PO SCH ×2 (08:34→15:39)
[2019-01-28] MEDS: FLECAINIDE 50 MG TAB PO SCH (08:34)
[2019-01-28] MEDS: TAMSULOSIN 0.4 MG CAP.ER.24H PO SCH (08:34)
[2019-01-28] MEDS ORDERED: METOPROLOL TARTRATE 25 MG TAB PO SCH (10:00)
--- NOTE | 2019-01-28 10:23 | PN ---
PROGRESS NOTE Mr. March is an 79-year-old male with history of paroxysmal atrial fibrillation who presented with a syncopal episode, most likely related to post-conversion pause. He underwent permanent pacemaker implantation yesterday. He is doing well this morning. He is denying any chest pain. His breathing has been stable. He denies any dizziness, palpitations. He denies any nausea. He continues be on flecainide 50 mg twice a day, Lasix 20 mg twice a day, Xarelto 20 mg daily. PHYSICAL EXAMINATION: Blood pressure 122/70 with a heart rate in the 90s. LUNGS: Clear. HEART: Regular rate and rhythm. S1, S2. No S3, with a systolic murmur. No diastolic murmur. Pacemaker site is clean. ABDOMEN: Soft, nontender. EXTREMITIES: No edema. Chest x-ray revealed no evidence of infiltrate or pneumothorax. Pacemaker interrogation revealed normal sensing and pacing of a dual-chamber pacemaker. IMPRESSION: 1. Syncopal episode, most likely related to post-conversion pause. 2. Paroxysmal atrial fibrillation. 3. Hypertension. RECOMMENDATIONS: From the cardiac standpoint, he is stable. Will increase his physical activity. I would expect he should be able to be discharged home today and followed as an outpatient. MMODL / IJN: [id number] /
[2019-01-28 10:45] VITALS: RESP 18
[2019-01-28 16:01] VITALS: BP 101/65; PULSE 83; TEMP 98.3
--- NOTE | 2019-01-28 16:13 | P.DS ---
Providers Date of admission: 01/25/19 18:03 Expected date of discharge: 01/28/19 Attending physician: Hugh Naranjo Consults: 01/25/19 18:03 Consult Physician Stat Consulting Provider: Wes Reyes Reason/Comments: syncope, sinus bradycardia Do you want consulting provider notified?: Already Contacted Primary care physician: Maria Ines Jaimes [facility] Course: Diagnosis on discharge: 1. Status post pacemaker placement for Syncopal episode likely related to sinus bradycardia. Cardiology consult placed. Patient's beta aditya currently on hold per cardiology. Patient is currently postop day 0 status post pacemaker placement 2. History of atrial fibrillation. Patient maintained on xarelto for anticoagulation. Patient's beta aditya currently on hold per cardiology services. Patient maintained on Tambocor 3. History of COPD no exacerbation at this time 4. Hyperlipidemia 5. Essential hypertension 6. Glaucoma 7. Increased weakness. Will consult physical therapy and occupational therapy 8. Hypothyroidism diagnosed during this admission TSH elevated at 5.36 patient was started on Synthroid 25 g by mouth daily Hospital course: This is an 79-year-old male patient of Dr. Jaimes. Patient presented with complaints of syncopal episode. Patient reports that he was not feeling well and then passed out in the living room. Patient dates he awoke and was laying on the living room floor patient has a known past medical history of atrial fibrillation in which she is on xarelto, flecainide and toprol. Patient follows with Dr. Reyes. Additional medical history includes COPD, glaucoma, hyperlipidemia, hypertension, cholecystectomy and hernia repair. Patient originally presented to [facility] where he was found to have heart rate that decreases to the 20s. Patient was transferred to [facility] for cardiology consult. CT of head and cervical spine completed showing cerebral atrophy. No acute intracranial abnormality. Mild spondylitic changes in the cervical spine. No fracture. EKG completed showing normal sinus rhythm, low- voltage QRS. Cardiology consult placed. Cardiology recommended continuing Tambocor but holding beta aditya at this time. At this time patient denies any chest pain or shortness of breath. Patient denies nausea vomiting or diarrhea. Patient denies any urinary burning or frequency. On 01/28/2019 patient was seen and examined on the telemetry floor he is alert and oriented 3 in no apparent distress he has been ambulating without any dizziness or palpitations, he was evaluated by cardiology and was cleared for discharge, patient is denying any symptoms at this time he was discharged home on 01/28/2019. He was given a prescription for Synthroid 25 g by mouth daily otherwise continue same medication as prior to admission follow-up with primary care physician Dr. Jaimes within one week follow-up with cardiology in 1-2 weeks Patient Condition at Discharge: Serious Plan - Discharge Summary Discharge Rx Participant: Yes New Discharge Prescriptions: New Levothyroxine Sodium [Synthroid] 25 mcg PO DAILY@0630 tab Continue Tiotropium 18 Mcg/Puff [Spiriva] 1 cap INHALATION RT-DAILY Rivaroxaban [Xarelto] 20 mg PO HS Latanoprost Ophth [Xalatan 0.005%] 1 drops BOTH EYES HS Furosemide [Lasix] 20 mg PO BID PRN PRN Reason: SWELLING IN LEGS Metoprolol Tartrate 25 mg PO BID #180 tab Tamsulosin [Flomax] 0.4 mg PO DAILY Atorvastatin [Lipitor] 60 mg PO HS Flecainide [Tambocor] 100 mg PO HS Discharge Medication List Furosemide [Lasix] 20 mg PO BID PRN 09/04/15 [History] Latanoprost Ophth [Xalatan 0.005%] 1 drops BOTH EYES HS 09/04/15 [History] Rivaroxaban [Xarelto] 20 mg PO HS 09/04/15 [History] Tiotropium 18 Mcg/Puff [Spiriva] 1 cap INHALATION RT-DAILY 09/04/15 [History] Metoprolol Tartrate 25 mg PO BID #180 tab 09/09/15 [Rx] Tamsulosin [Flomax] 0.4 mg PO DAILY 11/12/17 [History] Atorvastatin [Lipitor] 60 mg PO HS 02/14/18 [History] Flecainide [Tambocor] 100 mg PO HS 01/25/19 [History] Levothyroxine Sodium [Synthroid] 25 mcg PO DAILY@0630 tab 01/28/19 [Rx] Follow up Appointment(s)/Referral(s): Wes Reyes MD [STAFF PHYSICIAN] - 1 Week Maria Ines Jaimes MD [Primary Care Provider] - 1-2 days [facility],Clinic [REFERRING] - 1-2 Days Activity/Diet/Wound Care/Special Instructions: Contact CM at discharge for indigent funds, discharge medication list needs to be faxed to the [facility] at discharge so they can order medication refills.
== END 2019-01-28 16:33 | disposition home or self-care (01) | DRG 244 ==
LOC: EC 16:28 → 2SICU 18:03 → 3SCARD 01-27 19:20
PROVIDERS: ADMIT Internal Medicine; ATTEND Internal Medicine
PROC: 02HK3JZ Insertion of Pacemaker Lead into Right Ventricle, Percutaneous Approach (ICD-10-PCS; 2019-01-27)
PROC: 02H63JZ Insertion of Pacemaker Lead into Right Atrium, Percutaneous Approach (ICD-10-PCS; 2019-01-27)
PROC: 0JH606Z Insertion of Pacemaker, Dual Chamber into Chest Subcutaneous Tissue and Fascia, Open Approach (ICD-10-PCS; principal; 2019-01-27 10:00)
DX: I49.5 Sick sinus syndrome (principal); G62.9 Polyneuropathy, unspecified; J44.9 Chronic obstructive pulmonary disease, unspecified; I48.0 Paroxysmal atrial fibrillation; E03.9 Hypothyroidism, unspecified; E78.5 Hyperlipidemia, unspecified; I10 Essential (primary) hypertension; H40.9 Unspecified glaucoma; Z79.01 Long term (current) use of anticoagulants; Z79.899 Other long term (current) drug therapy; Z87.891 Personal history of nicotine dependence; Z90.49 Acquired absence of other specified parts of digestive tract; Z98.890 Other specified postprocedural states; Z82.49 Family history of ischemic heart disease and other diseases of the circulatory system; Z83.6 Family history of other diseases of the respiratory system
CPT/HCPCS: 33208; 36415; 70450; 71046; 72125; 80048; 80053; 81001; 82550; 83735; 83880; 84439; 84443; 84484; 85025; 85610; 85730; 93005; 94640; 99285

== ENCOUNTER → 2020-03-08 | Outpatient (CLI) | payer MEDICARE, BC ==
--- NOTE | 2020-03-08 16:09 | NM ---
EXAMINATION TYPE: NM bone scan whole body DATE OF EXAM: 03/08/2020 COMPARISON: 01/02/2019 HISTORY: Pain Delayed whole-body scanning was performed following the injection of 22.1 mCi Tc 99m MDP. Images acq uired 3 hours post injection. FINDINGS: Multiple anterior ribs to include 7, 8 and ninth, 10th ribs on the left show focal increased radiopha rmaceutical uptake consistent with probable rib fractures. There now are abnormal uptake seen involvi ng a lower anterior rib likely also posttraumatic. There is a mild S-shaped thoracic lumbar scoliosis. Persistent increased uptake involving the thoraci c and lumbar spine is nonspecific but likely degenerative. Linear uptake at the approximate level of L2 corresponds to the prior exam and likely related to compression fracture. Abnormal uptake seen involving the knees and feet likely post arthritic. Abnormal uptake involving th e calvarium again noted and stable likely on the basis of hyperostosis. Abnormal uptake involving the knees extend into the metadiaphysis of both femur could be correlated w ith x-ray bar stable. Abnormal uptake involving the proximal right tibia stable. IMPRESSION: 1. There are new multiple right-sided areas of abnormal uptake involving the rib cage correlate for f racture. 2. Previous left-sided rib fracture suspected. 3. Compression fracture L2 again noted. 4. Nonspecific vertebral column uptake throughout the thoracic and lumbar spine likely degenerative. 5. Abnormal intense uptake along the lateral margin of the right fibula is not seen on today's exam. However, there persists abnormal uptake involving the distal femur and proximal tibia greater on the right which is nonspecific and could be correlated with x-ray.
== END | disposition home or self-care (01) ==
LOC: RADNMMAIN 10:16
PROVIDERS: ATTEND Physical Medicine & Rehabilitation
DX: M48.56XA Collapsed vertebra, not elsewhere classified, lumbar region, initial encounter for fracture (principal); R93.7 Abnormal findings on diagnostic imaging of other parts of musculoskeletal system; M96.1 Postlaminectomy syndrome, not elsewhere classified; M48.062 Spinal stenosis, lumbar region with neurogenic claudication; M51.26 Other intervertebral disc displacement, lumbar region; M51.17 Intervertebral disc disorders with radiculopathy, lumbosacral region
CPT/HCPCS: 78306; A9503

== ENCOUNTER 2020-08-08 15:10 | Emergency (ER) | payer MEDICARE, BC ==
[2020-08-08 15:19] VITALS: TEMP 98
[2020-08-08] MEDS ORDERED: SODIUM CHLORIDE 0.9% 1,000 ML IV STA (15:39)
--- NOTE | 2020-08-08 15:41 | ED ---
General Adult HPI - General Chief complaint: Extremity Injury, Lower Stated complaint: fall Time Seen by Provider: 08/08/20 15:19 Source: EMS Mode of arrival: EMS Limitations: physical limitation - History of Present Illness Initial comments: Dictation was produced using [employer] dictation software. please excuse any grammatical, word or spelling errors. This patient was cared for during a federal and state declared state of emergency secondary to Covid 19 Chief Complaint: 80-year-old male presents to the emergency department for left lower extremity fracture History of Present Illness: 80-year-old male last night he was at home when he tried to get up to walk to the other room. He tripped over his walker landed on his left lower leg. Patient states that he decided to go to the emergency room at [facility] for evaluation. He had a computed tomography scan, blood tests in the left extremity x-ray performed showing distal left lower extremity fracture at the level of the distal fibula and tibia. He was transferred here for higher level of care. Patient's history of atrial fibrillation. He takes Xarelto. Patient's last oral intake was last night. He is placed in a splint at [facility]. He has a numbness and paresthesias to his left foot. The ROS documented in this emergency department record has been reviewed and confirmed by me. Those systems with pertinent positive or negative responses have been documented in the HPI. All other systems are other negative and/or noncontributory. PHYSICAL EXAM: General Impression: Alert and oriented x3, not in acute distress HEENT: Normocephalic atraumatic, extra-ocular movements intact, pupils equal and reactive to light bilaterally, mucous membranes moist. Cardiovascular: Heart regular rate and rhythm Chest: Able to complete full sentences, no retractions, no tachypnea Abdomen: abdomen soft, non-tender, non-distended, no organomegaly Musculoskeletal: Pulses present and equal in all extremities, no peripheral edema Motor: no focal deficits noted Left lower extremity: Left lower extremity in a splint, No calf pain with manipulation of the left great toe, foot is warm with symmetrical Refill with the right foot. Neurological: CN II-XII grossly intact, no focal motor or sensory deficits noted Skin: Intact with no visualized rashes Psych: Normal affect and mood ED course: 80-year-old male transferred to our hospital from [facility] emergency room for distal left extremity fracture vital signs upon arrival are within acceptable limits. Transfer documentation was reviewed. Case is discussed with the branch who is receiving calls for orthopedic city call. He reviewed the films and recommended patient be transferred to [facility] for trauma orthopedics. Transfer team discussed patient case with the trauma. I did discuss patient case with ED for ED to ED transfer. Patient be transferred to [facility] for further care. - Related Data Home Medications Medication Instructions Recorded Confirmed Furosemide [Lasix] 20 mg PO BID PRN 09/04/15 01/25/19 Latanoprost Ophth [Xalatan 0.005%] 1 drops BOTH EYES HS 09/04/15 01/25/19 Rivaroxaban [Xarelto] 20 mg PO HS 09/04/15 01/25/19 Tiotropium 18 Mcg/Puff [Spiriva] 1 cap INHALATION RT-DAILY 09/04/15 01/25/19 Tamsulosin [Flomax] 0.4 mg PO DAILY 11/12/17 01/25/19 Atorvastatin [Lipitor] 60 mg PO HS 02/14/18 01/25/19 Flecainide [Tambocor] 100 mg PO HS 01/25/19 01/25/19 Previous Rx's Medication Instructions Recorded Metoprolol Tartrate 25 mg PO BID #180 tab 09/09/15 Levothyroxine Sodium [Synthroid] 25 mcg PO DAILY@0630 tab 01/28/19 Allergies Allergy/AdvReac Type Severity Reaction Status Date / Time No Known Allergies Allergy Verified 08/08/20 17:04 Review of Systems ROS Statement: Those systems with pertinent positive or pertinent negative responses have been documented in the HPI. ROS Other: All systems not noted in ROS Statement are negative. Past Medical History Past Medical History: Atrial Fibrillation, COPD, Eye Disorder, Hyperlipidemia, Hypertension Additional Past Medical History / Comment(s): glaucoma, hx neuropathy, History of Any Multi-Drug Resistant Organisms: None Reported Past Surgical History: Back Surgery, Cholecystectomy, Hernia Repair Additional Past Surgical History / Comment(s): colonoscopy, surgery for pinched nerve in back Past Anesthesia/Blood Transfusion Reactions: No Reported Reaction Past Psychological History: No Psychological Hx Reported Smoking Status: Never smoker Past Alcohol Use History: None Reported Past Drug Use History: None Reported - Past Family History Mother Family Medical History: No Reported History Father Family Medical History: AICD/Pacemaker, Coronary Artery Disease (CAD), Respiratory Disorder Additional Family Medical History / Comment(s): Pacemaker General Exam Limitations: physical limitation Course Vital Signs 08/08/20 15:13 Temperature 98 F Pulse Rate 68 Respiratory 16 Rate Blood Pressure 152/86 O2 Sat by Pulse 96 Oximetry Disposition Clinical Impression: Tibial fracture Disposition: OTHER INSTITUTION NOT DEFINED Condition: Critical Referrals: Maria Ines Jaimes MD [Primary Care Provider] - 1-2 days Time of Disposition: 17:12 - Out of Hospital Transfer - Req. Specs Out of Hospital Transfer - Requested Specifics: Other Emergency Center ([facility])
--- NOTE | 2020-08-08 16:38 | XR ---
RESULT: HISTORY: leg fracture TECHNIQUE: 2 views of the left tibia and fibula were obtained. COMPARISON: None. FINDINGS: There is a displaced spiral fracture of the mid tibial diaphysis with large lateral butterfly fragmen t. There is a segmental fracture of the fibula involving the neck and distal diaphysis. There is also cortical irregularity of the medial malleolus. The ankle mortise is congruent. There is a splint in place. No evidence of dislocation. IMPRESSION: Left tibia-fibula fractures as described.
[2020-08-08 18:10] VITALS: BP 136/85; PULSE 53; RESP 18
== END 2020-08-08 18:27 | disposition other institution (70) ==
LOC: EC 15:10
DX: S82.302A Unspecified fracture of lower end of left tibia, initial encounter for closed fracture (principal); I48.91 Unspecified atrial fibrillation; J44.9 Chronic obstructive pulmonary disease, unspecified; I10 Essential (primary) hypertension; E78.5 Hyperlipidemia, unspecified; Z79.01 Long term (current) use of anticoagulants; Z79.51 Long term (current) use of inhaled steroids; Z79.899 Other long term (current) drug therapy; W01.0XXA Fall on same level from slipping, tripping and stumbling without subsequent striking against object, initial encounter
CPT/HCPCS: 99284

== ENCOUNTER 2020-08-14 14:59 | Observation (INO) | payer MEDICARE, BC ==
--- NOTE | 2020-08-14 15:28 | ED ---
General Adult HPI - General Chief complaint: Syncope Stated complaint: syncope Time Seen by Provider: 08/14/20 15:11 Source: patient, EMS Mode of arrival: EMS - History of Present Illness Initial comments: 80-year-old male presenting to the emergency department with a chief complaint of a possible syncopal episode. Patient is currently at [facility] where he apparently was sitting in chair and fell down to the ground. Per EMS report, patient was in a sitting position when he dropped onto the ground. Supposedly the patient did not want to stand facility anymore. I called and spoke with the daughter and phone who states the patient is "fine" when he is at home whenever he comes to the hospital he is confused and noncompliant at times. Patient was in emergency department 6 days ago for a tibial fracture with transfer to [facility]. - Related Data Home Medications Medication Instructions Recorded Confirmed Furosemide [Lasix] 20 mg PO BID PRN 09/04/15 08/14/20 Latanoprost Ophth [Xalatan 0.005%] 1 drop BOTH EYES HS@199909/04/15 08/14/20 Rivaroxaban [Xarelto] 20 mg PO AC-SUPPER 09/04/15 08/14/20 Atorvastatin Calcium [Lipitor] 20 mg PO HS@199908/08/20 08/14/20 Flecainide Acetate [Tambocor] 100 mg PO DAILY 08/08/20 08/14/20 Acetaminophen Tab [Tylenol] 650 mg PO QID 08/14/20 08/14/20 Metoprolol Tartrate 25 mg PO BID@0700,1900 08/14/20 08/14/20 Tamsulosin [Flomax] 0.4 mg PO HS 08/14/20 08/14/20 Tiotropium 18 Mcg/Puff [Spiriva] 1 cap INHALATION RT-DAILY 08/14/20 08/14/20 oxyCODONE HCL [Roxicodone] 5 mg PO Q4H PRN 08/14/20 08/14/20 Allergies Allergy/AdvReac Type Severity Reaction Status Date / Time No Known Allergies Allergy Verified 08/14/20 17:04 Review of Systems ROS Statement: Those systems with pertinent positive or pertinent negative responses have been documented in the HPI. ROS Other: All systems not noted in ROS Statement are negative. Past Medical History Past Medical History: Atrial Fibrillation, COPD, Eye Disorder, Hyperlipidemia, Hypertension Additional Past Medical History / Comment(s): glaucoma, hx neuropathy, History of Any Multi-Drug Resistant Organisms: None Reported Past Surgical History: Back Surgery, Cholecystectomy, Hernia Repair Additional Past Surgical History / Comment(s): colonoscopy, surgery for pinched nerve in back Past Anesthesia/Blood Transfusion Reactions: No Reported Reaction Past Psychological History: No Psychological Hx Reported Smoking Status: Never smoker Past Alcohol Use History: None Reported Past Drug Use History: None Reported - Past Family History Mother Family Medical History: No Reported History Father Family Medical History: AICD/Pacemaker, Coronary Artery Disease (CAD), Respiratory Disorder Additional Family Medical History / Comment(s): Pacemaker General Exam Limitations: no limitations General appearance: alert, in no apparent distress Head exam: Present: atraumatic, normocephalic, normal inspection Eye exam: Present: normal appearance, PERRL, EOMI Pupils: Present: normal accommodation ENT exam: Present: normal exam, normal oropharynx, mucous membranes moist, TM's normal bilaterally, normal external ear exam Neck exam: Present: normal inspection, full ROM. Absent: tenderness Respiratory exam: Present: normal lung sounds bilaterally. Absent: respiratory distress, wheezes, rales Cardiovascular Exam: Present: regular rate, normal rhythm, normal heart sounds. Absent: systolic murmur Extremities exam: Present: normal inspection (Splint the left lower extremities), full ROM, normal capillary refill. Absent: tenderness, pedal edema, joint swelling Back exam: Present: normal inspection, full ROM. Absent: tenderness, CVA tenderness (R), CVA tenderness (L) Neurological exam: Present: alert, oriented X3 (Patient alert and oriented to self but not place and time.), CN II-XII intact Expanded Patient oriented to: Present: person. Absent: place, time Cranial nerves: EOM's Intact: Normal, Tongue Deviation: Normal, Nystagmus: Tania l, Facial Sensation: Normal Cerebellar function: Finger to Nose: Normal Upper motor neuron: Pronator Drift: Normal Sensory exam: Upper Extremity Light Touch: Normal, Lower Extremity Light Touch: Normal Motor strength exam: RUE: 5, LUE: 5, RLE: 5, LLE: 5 DTR: Bicep (R): 4+, Bicep (L): 4+, Brachioradialis (R): 4+, Brachioradialis (L): 4+, Tricep (R): 4+, Tricep (L): 4+, Patellar (R): 4+, Patellar (L): 4+ Psychiatric exam: Present: normal affect, normal mood Skin exam: Present: warm, dry, intact, normal color Course Vital Signs 08/14/20 08/14/20 08/14/20 15:02 15:08 17:07 Temperature 98.2 F Pulse Rate 97 85 Respiratory 18 18 Rate Blood Pressure 137/73 147/89 O2 Sat by Pulse 96 98 Oximetry 08/14/20 18:30 Temperature 98.7 F Pulse Rate 87 Respiratory 18 Rate Blood Pressure 158/80 O2 Sat by Pulse 98 Oximetry Medical Decision Making - Medical Decision Making 80-year-old male presenting to the emergency room with chief complaint of a syncopal episode. On physical examination, patient is alert to self but not time and place. After speaking with the daughter the patient appears to confused whenever he comes to Hospital. Rest of neurological exam is unremarkable at this time. CT of the brain and C-spine shows no acute processes. Chest x-ray shows pulmonary fibrosis but no other acute findings. CBC showing anemia of 11.8. UA reveals elevated leukocyte esterase and white blood cells. Urine culture pending. Patient will be started on Rocephin. Patient will be admitted for further medical management. Case was discussed with Dr. Davalos. Admitted physician is - Lab Data Result diagrams: 08/14/20 16:07 08/14/20 16:07 Lab Results 08/14/20 08/14/20 08/14/20 Range/Units 16:07 16:07 16:07 WBC 7.7 (3.8-10.6) k/uL RBC 3.93 L (4.30-5.90) m/uL Hgb 11.8 L (13.0-17.5) gm/dL Hct 35.1 L (39.0-53.0) % MCV 89.4 (80.0-100.0) fL MCH 30.1 (25.0-35.0) pg MCHC 33.7 (31.0-37.0) g/dL RDW 14.4 (11.5-15.5) % Plt Count 213 (150-450) k/uL MPV 7.4 Neutrophils % 74 % Lymphocytes % 12 % Monocytes % 10 % Eosinophils % 2 % Basophils % 1 % Neutrophils # 5.7 (1.3-7.7) k/uL Lymphocytes # 0.9 L (1.0-4.8) k/uL Monocytes # 0.7 (0-1.0) k/uL Eosinophils # 0.1 (0-0.7) k/uL Basophils # 0.1 (0-0.2) k/uL PT 10.3 (9.0-12.0) sec INR 1.0 (<1.2) APTT 20.2 L (22.0-30.0) sec Sodium 137 (137-145) mmol/L Potassium 4.3 (3.5-5.1) mmol/L Chloride 108 H (98-107) mmol/L Carbon Dioxide 23 (22-30) mmol/L Anion Gap 6 mmol/L BUN 22 H (9-20) mg/dL Creatinine 0.65 L (0.66-1.25) mg/dL Est GFR (CKD-EPI)AfAm >90 (>60 ml/min/1.73 sqM) Est GFR (CKD-EPI)NonAf >90 (>60 ml/min/1.73 sqM) Glucose 117 H (74-99) mg/dL Calcium 9.0 (8.4-10.2) mg/dL Magnesium 2.2 (1.6-2.3) mg/dL Total Bilirubin 1.5 H (0.2-1.3) mg/dL AST 32 (17-59) U/L ALT 18 (4-49) U/L Alkaline Phosphatase 141 H (38-126) U/L Troponin I (0.000-0.034) ng/mL Total Protein 6.6 (6.3-8.2) g/dL Albumin 3.4 L (3.5-5.0) g/dL Urine Color Urine Appearance (Clear) Urine pH (5.0-8.0) Ur Specific [place] (1.001-1.035) Urine Protein (Negative) Urine Glucose (UA) (Negative) Urine Ketones (Negative) Urine Blood (Negative) Urine Nitrite (Negative) Urine Bilirubin (Negative) Urine Urobilinogen (<2.0) mg/dL Ur Leukocyte Esterase (Negative) Urine RBC (0-5) /hpf Urine WBC (0-5) /hpf Ur Squamous Epith Cells (0-4) /hpf Urine Bacteria (None) /hpf Hyaline Casts (0-2) /lpf Urine Mucus (None) /hpf 08/14/20 08/14/20 Range/Units 16:07 17:13 WBC (3.8-10.6) k/uL RBC (4.30-5.90) m/uL Hgb (13.0-17.5) gm/dL Hct (39.0-53.0) % MCV (80.0-100.0) fL MCH (25.0-35.0) pg MCHC (31.0-37.0) g/dL RDW (11.5-15.5) % Plt Count (150-450) k/uL MPV Neutrophils % % Lymphocytes % % Monocytes % % Eosinophils % % Basophils % % Neutrophils # (1.3-7.7) k/uL Lymphocytes # (1.0-4.8) k/uL Monocytes # (0-1.0) k/uL Eosinophils # (0-0.7) k/uL Basophils # (0-0.2) k/uL PT (9.0-12.0) sec INR (<1.2) APTT (22.0-30.0) sec Sodium (137-145) mmol/L Potassium (3.5-5.1) mmol/L Chloride (98-107) mmol/L Carbon Dioxide (22-30) mmol/L Anion Gap mmol/L BUN (9-20) mg/dL Creatinine (0.66-1.25) mg/dL Est GFR (CKD-EPI)AfAm (>60 ml/min/1.73 sqM) Est GFR (CKD-EPI)NonAf (>60 ml/min/1.73 sqM) Glucose (74-99) mg/dL Calcium (8.4-10.2) mg/dL Magnesium (1.6-2.3) mg/dL Total Bilirubin (0.2-1.3) mg/dL AST (17-59) U/L ALT (4-49) U/L Alkaline Phosphatase (38-126) U/L Troponin I <0.012 (0.000-0.034) ng/mL Total Protein (6.3-8.2) g/dL Albumin (3.5-5.0) g/dL Urine Color Yellow Urine Appearance Cloudy (Clear) Urine pH 6.5 (5.0-8.0) Ur Specific [place] 1.023 (1.001-1.035) Urine Protein Trace H (Negative) Urine Glucose (UA) Negative (Negative) Urine Ketones Negative (Negative) Urine Blood Negative (Negative) Urine Nitrite Negative (Negative) Urine Bilirubin Negative (Negative) Urine Urobilinogen 12.0 (<2.0) mg/dL Ur Leukocyte Esterase Moderate H (Negative) Urine RBC 3 (0-5) /hpf Urine WBC 27 H (0-5) /hpf Ur Squamous Epith Cells 2 (0-4) /hpf Urine Bacteria Many H (None) /hpf Hyaline Casts 32 H (0-2) /lpf Urine Mucus Occasional H (None) /hpf Disposition Clinical Impression: Urinary tract infection, Syncopal episodes Disposition: ADMITTED [facility] Condition: Fair Is patient prescribed a controlled substance at d/c from ED?: No Referrals: Maria Ines Jaimes MD [Primary Care Provider] - 1-2 days Time of Disposition: 19:43
[2020-08-14 16:12] LABS: Basophils # (A) 0.1 k/uL (0-0.2); Basophils % (A) 1 %; Eosinophils # (A) 0.1 k/uL (0-0.7); Eosinophils % (A) 2 %; HCT 35.1 % (39.0-53.0); HGB 11.8 gm/dL (13.0-17.5); Lymphocytes # (A) 0.9 k/uL (1.0-4.8); Lymphocytes % (A) 12 %; MCH 30.1 pg (25.0-35.0); MCHC 33.7 g/dL (31.0-37.0); MCV 89.4 fL (80.0-100.0); Mean Platelet Volume 7.4; Monocytes # (A) 0.7 k/uL (0-1.0); Monocytes % (A) 10 %; Neutrophils # (A) 5.7 k/uL (1.3-7.7); Neutrophils % (A) 74 %; Platelet Count 213 k/uL (150-450); RBC 3.93 m/uL (4.30-5.90); RDW 14.4 % (11.5-15.5); WBC 7.7 k/uL (3.8-10.6)
[2020-08-14 16:26] LABS: ALT 18 U/L (4-49); AST 32 U/L (17-59); African American GFR (CKD) >90 (>60 ml/min/1.73 sqM); Albumin 3.4 g/dL (3.5-5.0); Alkaline Phosphatase 141 U/L (38-126); Anion Gap 6 mmol/L; Blood Urea Nitrogen 22 mg/dL (9-20); Carbon Dioxide 23 mmol/L (22-30); Chloride 108 mmol/L (98-107); Glucose 117 mg/dL (74-99); Magnesium 2.2 mg/dL (1.6-2.3); Non-African American GFR(CKD) >90 (>60 ml/min/1.73 sqM); Potassium 4.3 mmol/L (3.5-5.1); Sodium 137 mmol/L (137-145); Total Bilirubin 1.5 mg/dL (0.2-1.3); Total Protein 6.6 g/dL (6.3-8.2)
[2020-08-14 16:32] LABS: Partial Thromboplastin Time 20.2 sec (22.0-30.0); Prothrombin Time 10.3 sec (9.0-12.0)
--- NOTE | 2020-08-14 16:41 | XR ---
EXAMINATION TYPE: XR chest 2V DATE OF EXAM: 08/14/2020 COMPARISON: 01/28/2019 HISTORY: Syncope there is blunting of the costophrenic angles. Heart is enlarged. There is minimal pulmonary congesti on. There is left axillary pacemaker. There is coarsening of the pulmonary interstitial markings. Depression Mild pulmonary fibrosis. There is evidence of mild chronic heart failure that is improved compared to old exam. Chronic mild pleural effusions.
[2020-08-14] MEDS ORDERED: SODIUM CHLORIDE 0.9% 1,000 ML IV STA (17:15)
[2020-08-14 18:09] LABS: Appearance,Urine Cloudy (Clear); Bacteria,Urine Many /hpf; Bilirubin,Urine Negative (Negative); Blood,Urine Negative (Negative); Color,Urine Yellow; Glucose,Urine (UA) Negative (Negative); Hyaline Casts,Urine 32 /lpf (0-2); Ketones,Urine Negative (Negative); Leukocyte Esterase,Urine Moderate (Negative); Mucus,Urine Occasional /hpf; Nitrite,Urine Negative (Negative); PH, Urine 6.5 (5.0-8.0); Protein,Urine Trace (Negative); RBC,Urine 3 /hpf (0-5); Specific Gravity,Urine 1.023 (1.001-1.035); Squamous Epithelial Cell,Urine 2 /hpf (0-4); WBC,Urine 27 /hpf (0-5)
--- NOTE | 2020-08-14 18:45 | CT ---
EXAMINATION TYPE: CT brain wo con DATE OF EXAM: 08/14/2020 COMPARISON: 01/25/2019 HISTORY: Confusion, weakness CT DLP: 1127.4 mGycm Automated exposure control for dose reduction was used. There is some cerebral cortical atrophy. There is no mass effect nor midline shift. There is no sign of intracranial hemorrhage. Calvarium is intact. The skull base is intact. IMPRESSION: Cerebral atrophy. No acute intracranial abnormality. There is clearing of right side maxillary sinusi tis compared to old exam.
[2020-08-14] MEDS ORDERED: NALOXONE 0.4 MG/ML 1 ML VIAL IV PRN (19:35)
[2020-08-14] MEDS ORDERED: traMADol 50 MG TAB PO PRN (19:35)
[2020-08-14] MEDS ORDERED: LORazepam 2 MG/ML INJ IV PRN (19:35)
[2020-08-14] MEDS ORDERED: ACETAMINOPHEN TAB 325 MG TAB PO PRN (19:35)
[2020-08-14] MEDS ORDERED: cefTRIAXone IN SWFI 1,000 MG/10 ML SYRINGE IVP STA (19:38)
[2020-08-14] MEDS: HYDROcodone/APAP 5-325MG 1 EACH TAB PO PRN (19:51)
[2020-08-15] MEDS: HYDROcodone/APAP 5-325MG 1 EACH TAB PO PRN (00:46)
[2020-08-15] MEDS ORDERED: FUROSEMIDE 20 MG TAB PO PRN (07:01)
[2020-08-15] MEDS: IPRATROPIUM 0.5 MG/2.5 ML NEBU INHALATION SCH ×2 (08:43→12:23)
[2020-08-15] MEDS: FLECAINIDE 50 MG TAB PO SCH (08:52)
[2020-08-15] MEDS ORDERED: ACETAMINOPHEN TAB 325 MG TAB PO SCH (09:00)
--- NOTE | 2020-08-15 10:05 | US ---
EXAMINATION TYPE: US carotid duplex BILAT DATE OF EXAM: 08/15/2020 COMPARISON: NONE CLINICAL HISTORY: 80-year-old male with syncope TECHNIQUE: Carotid duplex ultrasound examination. Indirect Doppler criteria was utilized. FINDINGS: EXAM MEASUREMENTS: RIGHT: Peak Systolic Velocity (PSV) cm/sec ----- Right CCA: 65.6 ----- Right ICA: 157 ----- Right ECA: 147 ICA/CCA ratio: 2.4 RIGHT: End Diastole cm/sec ----- Right CCA: 8.2 ----- Right ICA: 21.3 ----- Right ECA: 17.2 LEFT: Peak Systolic Velocity (PSV) cm/sec ----- Left CCA: 80.7 ----- Left ICA: 118 ----- Left ECA: 149 ICA/CCA ratio: 1.5 LEFT: End Diastole cm/sec ----- Left CCA: 16.2 ----- Left ICA: 30.6 ----- Left ECA: 0.0 VERTEBRALS (direction of flow): Right Vertebral: Antegrade Left Vertebral: Antegrade Rhythm: Normal Environmental Economist notes: Moderate plaque bilateral bifurcations. Mildly increased velocities right ICA and bilateral ECA's IMPRESSION: Mildly elevated velocities proximal right ICA may reflect a moderate (50-69%) stenosis. Criteria for Assigning % of Stenosis / Diameter reduction (Estimation based on the indirect measurements of the internal carotid artery velocities (ICA PSV). 1. Normal (no stenosis)=ICA PSV < 125 cm/s: ratio < 2.0: ICA EDV<40 cm/s. 2. Less than 50% stenosis=ICA PSV < 125 cm/s: ratio < 2.0: ICA EDV<40 cm/s. 3. 50 to 69% stenosis=ICA PSV of 125 to 230 cm/s: ration 2.0 ? 4.0: ICA EDV 40-100 cm/s. 4. Greater than 70% stenosis to near occlusion= ICA PSV > 230 cm/s: ratio > 4.0: ICA EDV > 100 cm/s. 5. Near occlusion= ICA PSV velocities may be low or undetectable: variable ratio and ICA EDV. 6. Total occlusion=unable to detect flow.
--- NOTE | 2020-08-15 10:47 | P.CRDCN ---
History of Present Illness History of present illness: HISTORY OF PRESENTING ILLNESS This is a pleasant 80-year-old male past medical history significant for paroxysmal atrial fibrillation on xarelto, permanent pacemaker insertion secondary to complete heart block ([facility]) 2019, COPD, hypertension, dyslipidemia and former nicotine dependence. He follows in the office with Dr. Reyes. We have been asked to see in consultation for syncope. Patient was seen and examined sitting up in bed in no acute distress. He is extremely anxious and nervous about this hospitalization. He has a poor historian and is having lapses in memory of the reason for why he is here. He has a cast on his left lower extremity and states that he recently broke his leg and his daughter was taking him to an appointment that was making him feel uncomfortable in the place was "[place]". He doesn't remember the situation surrounding his admission to the hospital he says that all he knows is that he woke up and he was on a stretcher. It is unclear if there is actual syncope. Emergency room notes indicate that he is currently residing at [facility] where he was sitting in a chair and fell to the ground. Per EMS he was in a sitting position when he dropped to the ground and was awake and alert at this time. He denies symptoms of chest pain, shortness of breath, dizziness or palpitations. DIAGNOSTICS EKG reveals sinus mechanism heart rate of 77. He is not currently on telemetry. Chest xray chronic pulmonary fibrotic changes. Laboratory reviewed, WBC 7.7, hemoglobin 11.8, sodium 137, potassium 4.3, creatinine 0.65, magnesium 2.2 and cardiac enzymes negative 1. Current cardiac medications include flecainide 100 mg daily, atorvastatin 20 mg daily, Lasix 20 mg daily as needed for lower extremity swelling, metoprolol 25 mg twice a day and Xarelto 20 mg daily. An echocardiogram obtained in 2017 revealed preserved LV systolic function with mild MR and mild TR noted. REVIEW OF SYSTEMS At the time of my exam: CONSTITUTIONAL: Denies fever or chills. CARDIOVASCULAR: Denies chest pain, shortness of breath, orthopnea, PND or palpitations. RESPIRATORY: Denies cough. GASTROINTESTINAL: Denies abdominal pain, diarrhea, constipation, nausea or vomiting. MUSCULOSKELETAL: Denies myalgias. NEUROLOGIC: Denies numbness, tingling, headacbe or weakness. ENDOCRINE: Denies fatigue, weight change, polydipsia or polyurina. GENITOURINARY: Denies burning, hematuria or urgency with micturation. HEMATOLOGIC: Denies history of anemia or bleeding. PHYSICAL EXAMINATION Blood pressure 155/82 heart rate 91 afebrile and maintaining oxygen saturation on room air. CONSTITUTIONAL: No apparent distress. HEENT: Head is normocephalic. Pupils are equal, round. Sclerae anicteric. Mucous membranes of the mouth are moist. No JVD. No carotid bruit. CHEST EXAMINATION: Lungs are clear to auscultation. No chest wall tenderness is noted on palpation or with deep breathing. HEART EXAMINATION: Regular rate and rhythm. S1, S2 heard. Systolic ejection murmur at the base, no gallops or rub. ABDOMEN: Soft, nontender. Positive bowel sounds. EXTREMITIES: 2+ peripheral pulses, mild right lower extremity edema nonpitting, cast in place to the left lower extremity and no calf tenderness. NEUROLOGIC EXAMINATION: Patient is awake, alert and oriented to self. ASSESSMENT Fall, unclear if there is loss of consciousness Urinary tract infection Left tibial fracture 6 days ago treated at [facility] Paroxysmal atrial fibrillation on long-term anticoagulation Permanent pacemaker implantation secondary to complete heart block Hypertension Dyslipidemia COPD Former nicotine dependence Memory impairment PLAN It is unclear whether or not the patient had actual syncope with loss of consciousness. He does not recall. Apply telemetry tracings to assess for an acute arrhythmia. Obtain 2-D echocardiogram and Doppler study to assess cardiac structure and function. Interrogate pacemaker. Thank you kindly for this consultation. Nurse Practitioner note has been reviewed, I agree with a documented findings and plan of care. Patient was seen and examined. Past Medical History Past Medical History: Atrial Fibrillation, COPD, Eye Disorder, Hyperlipidemia, Hypertension Additional Past Medical History / Comment(s): glaucoma, hx neuropathy, History of Any Multi-Drug Resistant Organisms: None Reported Past Surgical History: Back Surgery, Cholecystectomy, Hernia Repair Additional Past Surgical History / Comment(s): colonoscopy, surgery for pinched nerve in back Past Anesthesia/Blood Transfusion Reactions: No Reported Reaction Past Psychological History: No Psychological Hx Reported Smoking Status: Former smoker Past Alcohol Use History: None Reported Additional Past Alcohol Use History / Comment(s): quit smoking 1977, had smoked since teens, 2PPD Past Drug Use History: None Reported - Past Family History Mother Family Medical History: No Reported History Father Family Medical History: AICD/Pacemaker, Coronary Artery Disease (CAD), Respir atory Disorder Additional Family Medical History / Comment(s): Pacemaker Medications and Allergies Home Medications Medication Instructions Recorded Confirmed Type Furosemide [Lasix] 20 mg PO BID PRN 09/04/15 08/14/20 History Latanoprost Ophth [Xalatan 0.005%] 1 drop BOTH EYES HS@199909/04/15 08/14/20 History Rivaroxaban [Xarelto] 20 mg PO AC-SUPPER 09/04/15 08/14/20 History Atorvastatin Calcium [Lipitor] 20 mg PO HS@199908/08/20 08/14/20 History Flecainide Acetate [Tambocor] 100 mg PO DAILY 08/08/20 08/14/20 History Acetaminophen Tab [Tylenol] 650 mg PO QID 08/14/20 08/14/20 History Metoprolol Tartrate 25 mg PO BID@0700,1900 08/14/20 08/14/20 History Tamsulosin [Flomax] 0.4 mg PO HS 08/14/20 08/14/20 History Tiotropium 18 Mcg/Puff [Spiriva] 1 cap INHALATION RT-DAILY 08/14/20 08/14/20 History oxyCODONE HCL [Roxicodone] 5 mg PO Q4H PRN 08/14/20 08/14/20 History Allergies Allergy/AdvReac Type Severity Reaction Status Date / Time No Known Allergies Allergy Verified 08/14/20 17:04 Physical Exam Vitals: Vital Signs Temp Pulse Pulse Resp BP BP Pulse Ox 08/15/20 05:00 97.6 F 91 18 155/82 92 L 08/14/20 22:59 97.9 F 91 18 162/81 97 08/14/20 19:55 97.3 F L 94 16 177/81 98 08/14/20 18:30 98.7 F 87 18 158/80 98 08/14/20 17:07 85 18 147/89 98 08/14/20 15:08 98.2 F 08/14/20 15:02 97 18 137/73 96 Intake and Output 08/14/20 08/15/20 08/15/20 22:59 06:59 14:59 Intake Total 180 Balance 180 Intake: Oral 180 Other: Voiding Method Urinal Diaper # Voids 3 Weight 99 kg Results 08/14/20 16:07 08/14/20 16:07 Cardiac Enzymes 08/14/20 08/14/20 Range/Units 16:07 16:07 AST 32 (17-59) U/L Troponin I <0.012 (0.000-0.034) ng/mL Coagulation 08/14/20 Range/Units 16:07 PT 10.3 (9.0-12.0) sec APTT 20.2 L (22.0-30.0) sec CBC 08/14/20 Range/Units 16:07 WBC 7.7 (3.8-10.6) k/uL RBC 3.93 L (4.30-5.90) m/uL Hgb 11.8 L (13.0-17.5) gm/dL Hct 35.1 L (39.0-53.0) % Plt Count 213 (150-450) k/uL Comprehensive Metabolic Panel 08/14/20 Range/Units 16:07 Sodium 137 (137-145) mmol/L Potassium 4.3 (3.5-5.1) mmol/L Chloride 108 H (98-107) mmol/L Carbon Dioxide 23 (22-30) mmol/L BUN 22 H (9-20) mg/dL Creatinine 0.65 L (0.66-1.25) mg/dL Glucose 117 H (74-99) mg/dL Calcium 9.0 (8.4-10.2) mg/dL AST 32 (17-59) U/L ALT 18 (4-49) U/L Alkaline Phosphatase 141 H (38-126) U/L Total Protein 6.6 (6.3-8.2) g/dL Albumin 3.4 L (3.5-5.0) g/dL Current Medications Generic Name Dose Route Start Last Admin Trade Name Freq PRN Reason Stop Dose Admin Acetaminophen 650 mg 08/14/20 19:35 Acetaminophen Tab 325 Mg Tab PO Q6HR PRN Mild Pain or Fever > 100.5 Hydrocodone Bitart/Acetaminophen 1 each 08/14/20 19:35 08/15/20 00:46 Hydrocodone/Apap 5-325mg 1 Each Tab PO 1 each Q4HR PRN Administration Moderate Pain Atorvastatin Calcium 20 mg 08/15/20 20:00 Atorvastatin 20 Mg Tab PO HS@2000 [facility] Flecainide Acetate 100 mg 08/15/20 09:00 08/15/20 08:52 Flecainide 50 Mg Tab PO 100 mg DAILY [facility] Administration Furosemide 20 mg 08/15/20 07:01 Furosemide 20 Mg Tab PO BID PRN Edema Hydromorphone HCl 0.5 mg 08/14/20 19:35 Hydromorphone 0.5 Mg/0.5 Ml Syringe IVP Q3HR PRN Moderate Pain Ceftriaxone Sodium 1 gm/ 50 mls @ 100 mls/hr 08/15/20 09:00 08/15/20 08:51 Sodium Chloride IVPB 100 mls/hr Q24HR [place] Administration Ipratropium Lyman 0.5 mg 08/15/20 08:00 08/15/20 08:43 Ipratropium 0.5 Mg/2.5 Ml Nebu INHALATION Not Given RT-QID [facility] Latanoprost 1 drops 08/15/20 20:00 Latanoprost 0.005% Ophth Drops 2.5 Ml Btl BOTH EYES HS@2000 [facility] Lorazepam 0.5 mg 08/14/20 19:35 08/14/20 19:51 Lorazepam 2 Mg/Ml Inj IV 0.5 mg Q6HR PRN Administration Anxiety Metoprolol Tartrate 25 mg 08/15/20 19:00 Metoprolol Tartrate 25 Mg Tab PO BID@0700,1900 [facility] Naloxone HCl 0.2 mg 08/14/20 19:35 Naloxone 0.4 Mg/Ml 1 Ml Vial IV Q2M PRN Opioid Reversal Oxycodone HCl 5 mg 08/15/20 07:01 Oxycodone Hcl 5 Mg Tab PO Q4H PRN Moderate to Severe Pain Rivaroxaban 20 mg 08/15/20 17:30 Rivaroxaban 20 Mg Tab PO AC-SUPPER [facility] Tamsulosin HCl 0.4 mg 08/15/20 21:00 Tamsulosin 0.4 Mg Cap.Er.24h PO HS [facility] Tramadol HCl 50 mg 08/14/20 19:35 Tramadol 50 Mg Tab PO Q6H PRN Moderate Pain Intake and Output 08/14/20 08/15/20 08/15/20 22:59 06:59 14:59 Intake Total 180 Balance 180 Intake: Oral 180 Other: Voiding Method Urinal Diaper # Voids 3 Weight 99 kg 08/14/20 16:07 08/14/20 16:07
--- NOTE | 2020-08-15 12:00 | ECHOF ---
Referral Reason:syncope MEASUREMENTS -------- HEIGHT: 180.3 cm WEIGHT: 98.9 kg BP: 155/82 RVIDd: 2.6 cm (< 3.3) IVSd: 1.6 cm (0.6 - 1.1) LVIDd: 3.2 cm (3.9 - 5.3) LVPWd: 1.4 cm (0.6 - 1.1) IVSs: 1.9 cm LVIDs: 2.1 cm LVPWs: 2.2 cm Ao Diam: 3.1 cm (2.0 - 3.7) AV Cusp: 2.2 cm (1.5 - 2.6) LA Diam: 3.5 cm (2.7 - 3.8) MV EXCURSION: 13.261 mm (> 18.000) MV EF SLOPE: 44 mm/s (70 - 150) EPSS: 0.6 cm MV E Corky: 0.57 m/s MV DecT: 292 ms MV A Corky: 0.79 m/s MV E/A Ratio: 0.73 RAP: 5.00 mmHg RVSP: 25.47 mmHg FINDINGS -------- Sinus rhythm. Pacerwire seen in RV and RA. This was a technically difficult study with suboptimal views. The left ventricular size is normal. There is moderate concentric left ventricular hypertrophy. O verall left ventricular systolic function is normal with, an EF between 55 - 60 %. The right ventricle is normal in size. The left atrial size is normal. The right atrial size is normal. 5.0mg of Lumason was utilized for enhancement of images The aortic valve was not well visualized. The mitral valve is normal. Mild mitral regurgitation is present. The tricuspid valve appears structurally normal. Mild tricuspid regurgitation present. Right vent ricular systolic pressure is normal at < 35 mmHg. The pulmonic valve was not well visualized. There is no pulmonic regurgitation present. The aortic root size is normal. IVC Not well visulized. There is no pericardial effusion. CONCLUSIONS -------- 1. Pacerwire seen in RV and RA. 2. This was a technically difficult study with suboptimal views. 3. There is moderate concentric left ventricular hypertrophy. 4. Overall left ventricular systolic function is normal with, an EF between 55 - 60 %. 5. The aortic valve was not well visualized. 6. Mild mitral regurgitation is present. 7. Mild tricuspid regurgitation present. 8. There is no pericardial effusion. POWER TOOL REPAIRER: Ellyn Everett RDCS
[2020-08-15] MEDS: TIOTROPIUM 2.5 MCG INHALER INHALATION SCH (12:29)
--- NOTE | 2020-08-15 17:32 | P.HPIM ---
History of Present Illness H&P Date: 08/15/20 Bladimir March, is an 80-year-old male who presented to [facility] after having a syncopal episode, patient currently is residing at [facility] apparently he was sitting on a chair and he fell down to the ground, patient was recently seen at [facility] emergency room also for a fall at that time he had evidence of left tibia and fibula fracture, at that time he was transferred to [facility], per patient he had surgery on his leg and currently he has a cast on the left lower extremity. His past medical history is significant for history of hypertension, hyperlipidemia, glaucoma, history of atrial fibrillation, and history of COPD. On review of systems patient is alert, confused in no apparent distress, it is not clear whether this confusion is at his baseline or if patient had any recent decline in his cognitive ability, a computed tomography scan of the brain was done in the emergency room and did not reveal any acute abnormality, there is no fever or chills no headache or dizziness no chest pain no shortness of breath no cough no nausea or vomiting no abdominal pain no diarrhea no blood in the stools no burning with urination no frequency or urgency and no hematuria. Past Medical History Past Medical History: Atrial Fibrillation, COPD, Eye Disorder, Hyperlipidemia, Hypertension Additional Past Medical History / Comment(s): glaucoma, hx neuropathy, History of Any Multi-Drug Resistant Organisms: None Reported Past Surgical History: Back Surgery, Cholecystectomy, Hernia Repair Additional Past Surgical History / Comment(s): colonoscopy, surgery for pinched nerve in back Past Anesthesia/Blood Transfusion Reactions: No Reported Reaction Past Psychological History: No Psychological Hx Reported Smoking Status: Former smoker Past Alcohol Use History: None Reported Additional Past Alcohol Use History / Comment(s): quit smoking 1977, had smoked since teens, 2PPD Past Drug Use History: None Reported - Past Family History Mother Family Medical History: No Reported History Father Family Medical History: AICD/Pacemaker, Coronary Artery Disease (CAD), Respiratory Disorder Additional Family Medical History / Comment(s): Pacemaker Medications and Allergies Home Medications Medication Instructions Recorded Confirmed Type Furosemide [Lasix] 20 mg PO BID PRN 09/04/15 08/14/20 History Latanoprost Ophth [Xalatan 0.005%] 1 drop BOTH EYES HS@199909/04/15 08/14/20 Hi story Rivaroxaban [Xarelto] 20 mg PO AC-SUPPER 09/04/15 08/14/20 History Atorvastatin Calcium [Lipitor] 20 mg PO HS@199908/08/20 08/14/20 History Flecainide Acetate [Tambocor] 100 mg PO DAILY 08/08/20 08/14/20 History Acetaminophen Tab [Tylenol] 650 mg PO QID 08/14/20 08/14/20 History Metoprolol Tartrate 25 mg PO BID@0700,1900 08/14/20 08/14/20 History Tamsulosin [Flomax] 0.4 mg PO HS 08/14/20 08/14/20 History Tiotropium 18 Mcg/Puff [Spiriva] 1 cap INHALATION RT-DAILY 08/14/20 08/14/20 History oxyCODONE HCL [Roxicodone] 5 mg PO Q4H PRN 08/14/20 08/14/20 History Allergies Allergy/AdvReac Type Severity Reaction Status Date / Time No Known Allergies Allergy Verified 08/14/20 17:04 Physical Exam Vitals: Vital Signs Temp Pulse Pulse Resp BP BP Pulse Ox 08/15/20 05:00 97.6 F 91 18 155/82 92 L 08/14/20 22:59 97.9 F 91 18 162/81 97 08/14/20 19:55 97.3 F L 94 16 177/81 98 08/14/20 18:30 98.7 F 87 18 158/80 98 08/14/20 17:07 85 18 147/89 98 08/14/20 15:08 98.2 F 08/14/20 15:02 97 18 137/73 96 Intake and Output 08/14/20 08/15/20 08/15/20 22:59 06:59 14:59 Other: Voiding Method Urinal Diaper # Voids 3 Weight 99 kg In general patient is alert and oriented 3 in no apparent distress HEENT head normocephalic and atraumatic Neck is supple no JVD no goiter no lymphadenopathy Chest exam reveals a few scattered rhonchi no wheezing Cardiac exam reveals regular heart sounds S1 and S2 no gallops no murmurs Abdomen is soft nontender no organomegaly was normal bowel sounds Extremity exam reveals no edema no cyanosis or clubbing, there is a cast on the left lower extremity extending from the foot to the knee Neurological examination reveals no gross focal deficits Results CBC & Chem 7: 08/14/20 16:07 08/14/20 16:07 Labs: Abnormal Lab Results - Last 24 Hours (Table) 08/14/20 08/14/20 08/14/20 Range/Units 16:07 16:07 16:07 RBC 3.93 L (4.30-5.90) m/uL Hgb 11.8 L (13.0-17.5) gm/dL Hct 35.1 L (39.0-53.0) % Lymphocytes # 0.9 L (1.0-4.8) k/uL APTT 20.2 L (22.0-30.0) sec Chloride 108 H (98-107) mmol/L BUN 22 H (9-20) mg/dL Creatinine 0.65 L (0.66-1.25) mg/dL Glucose 117 H (74-99) mg/dL Total Bilirubin 1.5 H (0.2-1.3) mg/dL Alkaline Phosphatase 141 H (38-126) U/L Albumin 3.4 L (3.5-5.0) g/dL Urine Protein (Negative) Ur Leukocyte Esterase (Negative) Urine WBC (0-5) /hpf Urine Bacteria (None) /hpf Hyaline Casts (0-2) /lpf Urine Mucus (None) /hpf 08/14/20 Range/Units 17:13 RBC (4.30-5.90) m/uL Hgb (13.0-17.5) gm/dL Hct (39.0-53.0) % Lymphocytes # (1.0-4.8) k/uL APTT (22.0-30.0) sec Chloride (98-107) mmol/L BUN (9-20) mg/dL Creatinine (0.66-1.25) mg/dL Glucose (74-99) mg/dL Total Bilirubin (0.2-1.3) mg/dL Alkaline Phosphatase (38-126) U/L Albumin (3.5-5.0) g/dL Urine Protein Trace H (Negative) Ur Leukocyte Esterase Moderate H (Negative) Urine WBC 27 H (0-5) /hpf Urine Bacteria Many H (None) /hpf Hyaline Casts 32 H (0-2) /lpf Urine Mucus Occasional H (None) /hpf Microbiology - Last 24 Hours (Table) 08/14/20 17:13 Urine Culture - Preliminary Urine,Clean Catch Thrombosis Risk Factor Assmnt - Choose All That Apply Any of the Below Risk Factors Present?: Yes Each Factor Represents 1 point: Obesity (BMI >25) Other Risk Factors: Yes Each Risk Factor Represents 3 Points: Age 75 years or older Other congenital or acquired thrombophilia - If yes, enter type in comment: Yes Each Risk Factor Represents 5 Points: Hip, pelvis, or leg fracture (< 1 month) Thrombosis Risk Factor Assessment Total Risk Factor Score: 9 Thrombosis Risk Factor Assessment Level: High Risk Assessment and Plan Plan: 1. Syncopal episode with fall, will check echocardiogram and carotid Doppler, monitor on telemetry cardiology consult requested 2. Underlying history of atrial fibrillation heart rate is well-controlled, patient is maintained on Xarelto 20 mg daily 3. Underlying history of COPD stable at this time 4. Underlying history of hypertension 5. Underlying history of hyperlipidemia 6. Underlying history of glaucoma 7. Underlying history of benign prostatic hypertrophy 8. Recent fall with left tibia and fibula fracture 9. Evidence of urinary tract infection, started on Rocephin 1 g IV every 24 hours At this time will monitor patient on telemetry Check echocardiogram and carotid Doppler, consult cardiology Will consult orthopedic surgery and infectious disease Will follow closely
[2020-08-15] MEDS: RIVAROXABAN 20 MG TAB PO SCH (18:20)
[2020-08-15] MEDS: HYDROmorphone 0.5 MG/0.5 ML SYRINGE IVP PRN (19:41)
[2020-08-15] MEDS ORDERED: LATANOPROST 0.005% OPHTH DROPS 2.5 ML BTL BOTH EYES SCH (20:00)
[2020-08-15] MEDS ORDERED: ATORVASTATIN 20 MG TAB PO SCH (20:00)
[2020-08-15] MEDS: METOPROLOL TARTRATE 25 MG TAB PO SCH (20:02)
[2020-08-15] MEDS ORDERED: TAMSULOSIN 0.4 MG CAP.ER.24H PO SCH (21:00)
--- NOTE | 2020-08-15 23:29 | CONS ---
CONSULTATION DATE OF SERVICE: 08/15/2020 REASON FOR CONSULTATION: UTI and a question of left leg infection. HISTORY OF PRESENT ILLNESS: The patient is an 80-year-old male who apparently did have a fall with resultant left tibia/fibula fracture for which the patient was sent to [facility] where the patient did have surgical repair. Patient currently does have a cast on his left leg. The patient subsequently has been at [facility] for rehab. The patient apparently fell from his chair down to the ground with no clear history of any injury to the head, but there was question of possible the patient passing out with concern for syncopal episode. The patient has been brought to the [facility] ER for further evaluation. On presentation to the hospital, the patient has been afebrile. The patient did have a normal white count. Kidney function was normal. Liver enzymes are normal. Urine was positive with moderate leukocyte esterase, 27 WBC. Cultures showing a Gram-negative bacilli. Patient did have a chest x-ray reported mild pulmonary fibrosis. CT of the brain was negative for any bleed. The patient has been admitted to the hospital. Infectious Disease was consulted with concern for possible UTI and question of left leg infection. The patient's pain to the left leg is currently controlled. Mentioned no drainage or any other symptoms as far as the left leg is concerned. REVIEW OF SYSTEMS: Positive points have been mentioned in HPI. Rest of the systems are negative. PAST MEDICAL HISTORY: Recent left tibia-fibula fracture after fall, history of atrial fibrillation, hypertension, hyperlipidemia, COPD. PAST SURGICAL HISTORY: Back surgery, cholecystectomy, hernia repair and left leg tib-fib fracture repair. SOCIAL HISTORY: No history of smoking, drinking or drug use. FAMILY HISTORY: Father history ICD, pacemaker placement, coronary artery disease. ALLERGIES: No known drug allergies. MEDICATIONS: The patient is currently on Tylenol, [place], Lipitor, Rocephin 1 g daily. He is on Tambocor, Lasix, Dilaudid, Ativan, Lopressor, Narcan, Xarelto, Flomax, Ultram. PHYSICAL EXAMINATION: Blood pressure is 161/76, pulse of 98, temperature 98. He is 98% on room air. General description: The patient is an elderly male lying in bed in no distress. No tachypnea or accessory muscles of respiration use. HEENT: Examination shows slight pallor. No scleral icterus. Oral mucous membranes dry. No pharyngeal erythema or thrush. NECK: Trachea central. No thyromegaly. LUNGS: Unlabored breathing, clear to auscultation anteriorly. No wheeze or crackles. HEART S1, S2. Regular rate and rhythm. ABDOMEN: Soft, no tenderness. No guarding. No rigidity. EXTREMITIES: Left lower extremity has without room in the catheter, no evidence of any swelling or redness. He did have multiple stitches from the surgical site, but no erythema or any drainage. NEUROLOGICAL: Patient is awake, alert, oriented times two. Mood and affect normal. LABS: Hemoglobin 11.8, white count 7.7, BUN of 22, creatinine 0.65. Liver enzymes are normal. Urine is positive. DIAGNOSTIC IMPRESSION/PLAN: Patient admitted to the hospital after apparently the patient did have a syncopal episode in this patient with possible component of urinary tract infection, with positive urine may be responsible for some of his symptoms. Clinical suspicion low for infection of the left lower extremity in this patient with recent fall and is status post surgical repair. Urine now showing a gram-negative. PLAN: 1. We will keep the patient on Rocephin 1 g IV daily. 2. Gentle IV fluid. 3. We will follow on clinical condition and culture to further adjust medication if needed. Thank you for this consultation. Will follow this patient along with you. MMODL / SUNILN: [id number] /
[2020-08-16] MEDS: HYDROmorphone 0.5 MG/0.5 ML SYRINGE IVP PRN (02:31)
[2020-08-16] MEDS: METOPROLOL TARTRATE 25 MG TAB PO SCH (07:06)
[2020-08-16] MEDS: FLECAINIDE 50 MG TAB PO SCH (07:06)
[2020-08-16] MEDS: TIOTROPIUM 2.5 MCG INHALER INHALATION SCH (07:18)
[2020-08-16 07:59] LABS: Basophils % (A) 1 %; Eosinophils # (A) 0.5 k/uL (0-0.7); Eosinophils % (A) 6 %; HCT 32.1 % (39.0-53.0); HGB 10.6 gm/dL (13.0-17.5); Hypochromasia Moderate; Lymphocytes # (A) 1.6 k/uL (1.0-4.8); Lymphocytes % (A) 20 %; MCHC 33.1 g/dL (31.0-37.0); MCV 93.5 fL (80.0-100.0); Mean Platelet Volume 7.4; Monocytes # (A) 1.2 k/uL (0-1.0); Monocytes % (A) 15 %; Neutrophils # (A) 4.6 k/uL (1.3-7.7); Neutrophils % (A) 57 %; Platelet Count 213 k/uL (150-450); RBC 3.43 m/uL (4.30-5.90); RDW 14.8 % (11.5-15.5); WBC 8.2 k/uL (3.8-10.6)
[2020-08-16] MEDS ORDERED: LIDOCAINE 1% INJ 10MG/ML (20 ML MDV) SQ STA (07:59)
[2020-08-16] MEDS ORDERED: METOPROLOL TARTRATE 25 MG TAB PO STA (08:57)
--- NOTE | 2020-08-16 10:10 | P.PN ---
Subjective HISTORY OF PRESENTING ILLNESS This is a pleasant 80-year-old male past medical history significant for paroxysmal atrial fibrillation on xarelto, permanent pacemaker insertion secondary to complete heart block ([facility]) 2019, COPD, hypertension, dyslipidemia and former nicotine dependence. He follows in the office with Dr. Reyes. He is seen and examined sitting up eating breakfast. He is more alert today and less anxious. He denies chest pain, shortness of breath, dizziness or palpitations. Blood pressure 159/83 heart rate 98 afebrile and maintaining oxygen saturation on room air. Laboratory data pending. Echocardiogram obtained revealed preserved LV systolic function with EF 55-60%. Pacemaker interrogation unremarkable for an acute dav or tachy a arrhythmia. A. tach or A. fib burden is less than 1%. PHYSICAL EXAMINATION CONSTITUTIONAL: No apparent distress. HEENT: Head is normocephalic. Pupils are equal, round. Sclerae anicteric. Mucous membranes of the mouth are moist. No JVD. No carotid bruit. CHEST EXAMINATION: Lungs are clear to auscultation. No chest wall tenderness is noted on palpation or with deep breathing. HEART EXAMINATION: Regular rate and rhythm, tachycardic. S1, S2 heard. Systolic ejection murmur at the base, no gallops or rub. EXTREMITIES: 2+ peripheral pulses, mild right lower extremity edema nonpitting, cast in place to the left lower extremity and no calf tenderness. ASSESSMENT Fall, unclear if there is loss of consciousness Urinary tract infection Left tibial fracture 6 days ago treated at [facility] Paroxysmal atrial fibrillation on long-term anticoagulation Permanent pacemaker implantation secondary to complete heart block Hypertension Dyslipidemia COPD Former nicotine dependence Memory impairment PLAN On exam patient appears tachycardic. Review of telemetry reveals he is in sinus tachycardia, not afib. Increase lopressor 25 mg TID. Overall he is stable from a cardiac perspective to be discharged home. Follow up with Dr. Reyes upon discharge. Nurse Practitioner note has been reviewed, I agree with a documented findings and plan of care. Patient was seen and examined. Objective - Vital Signs Vital signs: Vital Signs Temp 97.8 F 08/16/20 02:06 Pulse 98 08/16/20 02:06 Resp 18 08/16/20 02:06 BP 159/83 08/16/20 02:06 Pulse Ox 95 08/16/20 02:06 Intake & Output 08/15/20 08/16/20 08/16/20 18:59 06:59 18:59 Intake Total 180 Balance 180 Intake: Oral 180 Other: Voiding Method Urinal Urinal Diaper Diaper # Voids 3 - Labs CBC & Chem 7: 08/16/20 07:17 08/14/20 16:07 Labs: Abnormal Lab Results - Last 24 Hours (Table) 08/16/20 Range/Units 07:17 RBC 3.43 L (4.30-5.90) m/uL Hgb 10.6 L (13.0-17.5) gm/dL Hct 32.1 L (39.0-53.0) % Monocytes # 1.2 H (0-1.0) k/uL Microbiology - Last 24 Hours (Table) 08/14/20 17:13 Urine Culture - Preliminary Urine,Clean Catch Gram Neg Bacilli
--- NOTE | 2020-08-16 11:16 | XR ---
Left leg HISTORY: Postop follow-up 2 views of the left leg on 5 images correlated prior exam 08/08/2020 Patient shows interval placement of an intramedullary danielle within the left tibia. There is some residu al displacement of approximately 8 mm posteriorly, 7 mm laterally. Kari are present. Bone minerali zation is reduced. There is a 10 through the distal fibula with near-anatomic alignment, distal aspec t of the pain is approximately 2 cm distal to the distal margin of the fibula. There is an overlying dressing or splint. IMPRESSION: Orthopedic follow-up.
[2020-08-16 11:41] LABS: African American GFR (CKD) 109.3 (60.0-200.0); Albumin 3.6 g/dL (3.80-4.90); Albumin/Globulin Ratio 1.8 (1.60-3.17); BUN/Creat Ratio 26.67 Ratio (12.00-20.00); Calcium 8.6 mg/dL (8.7-10.3); Non-African American GFR(CKD) 94.3 (60.0-200.0); Potassium 4.3 mmol/L (3.5-5.5); Total Bilirubin 1.2 mg/dL (0.2-1.2); Total Protein 5.6 g/dL (6.2-8.2)
[2020-08-16 11:55] VITALS: BP 126/69; PULSE 69; RESP 16; TEMP 97.6
--- NOTE | 2020-08-16 13:07 | P.CNOR ---
History of Present Illness - [facility] Consult date: 08/16/20 Consult reason: fracture (Fracture follow-up left tib/fib.) History of present illness: This is an 80-year-old gentleman with history of recent tibia/fibula fracture approximately 1 week ago. He initially presented to [facility]. He was subsequently transferred to [facility] on 2020. He had a closed reduction with insertion of intramedullary nail of the left tibia and had an intramedullary pin inserted to the fibula. The patient was at inpatient rehabilitation important her on and had a syncopal episode. He was brought to the emergency department and was admitted. We're consulted for orthopedic follow-up of his left tib-fib fracture. Past Medical History Past Medical History: Atrial Fibrillation, COPD, Eye Disorder, Hyperlipidemia, Hypertension Additional Past Medical History / Comment(s): glaucoma, hx neuropathy, History of Any Multi-Drug Resistant Organisms: None Reported Past Surgical History: Back Surgery, Cholecystectomy, Hernia Repair Additional Past Surgical History / Comment(s): colonoscopy, surgery for pinched nerve in back Past Anesthesia/Blood Transfusion Reactions: No Reported Reaction Past Psychological History: No Psychological Hx Reported Smoking Status: Former smoker Past Alcohol Use History: None Reported Additional Past Alcohol Use History / Comment(s): quit smoking 1977, had smoked since teens, 2PPD Past Drug Use History: None Reported - Past Family History Mother Family Medical History: No Reported History Father Family Medical History: AICD/Pacemaker, Coronary Artery Disease (CAD), Respiratory Disorder Additional Family Medical History / Comment(s): Pacemaker Medications and Allergies Home Medications Medication Instructions Recorded Confirmed Type Furosemide [Lasix] 20 mg PO BID PRN 09/04/15 08/14/20 History Latanoprost Ophth [Xalatan 0.005%] 1 drop BOTH EYES HS@199909/04/15 08/14/20 History Rivaroxaban [Xarelto] 20 mg PO AC-SUPPER 09/04/15 08/14/20 History Atorvastatin Calcium [Lipitor] 20 mg PO HS@199908/08/20 08/14/20 History Flecainide Acetate [Tambocor] 100 mg PO DAILY 08/08/20 08/14/20 History Acetaminophen Tab [Tylenol] 650 mg PO QID 08/14/20 08/14/20 History Metoprolol Tartrate 25 mg PO BID@0700,1900 08/14/20 08/14/20 History Tamsulosin [Flomax] 0.4 mg PO HS 08/14/20 08/14/20 History Tiotropium 18 Mcg/Puff [Spiriva] 1 cap INHALATION RT-DAILY 08/14/20 08/14/20 History oxyCODONE HCL [Roxicodone] 5 mg PO Q4H PRN 08/14/20 08/14/20 History Allergies Allergy/AdvReac Type Severity Reaction Status Date / Time No Known Allergies Allergy Verified 08/14/20 17:04 Physical Examination This is an 80-year-old gentleman in no acute distress. He has slight confusion and is hearing impaired. Exam of the left lower extremity reveals a short leg splint in place. There is a dressing about his knee. He has full toe motion without difficulty or pain. Capillary refill is less than 3 seconds. Neurovascular status to the left lower extremity in intact. Results X-rays taken today reveal an intramedullary nail in the tibia and good position and alignment. There is a intramedullary pin in place in the fibula which has subsided slightly out of the fibula approximately 2 cm distally. - Labs Labs: Abnormal Lab Results - Last 24 Hours (Table) 08/16/20 08/16/20 Range/Units 07:17 07:17 RBC 3.43 L (4.30-5.90) m/uL Hgb 10.6 L (13.0-17.5) gm/dL Hct 32.1 L (39.0-53.0) % Monocytes # 1.2 H (0-1.0) k/uL BUN/Creatinine Ratio 26.67 H (12.00-20.00) Ratio Calcium 8.6 L (8.7-10.3) mg/dL Alkaline Phosphatase 145 H (41-126) U/L Total Protein 5.6 L (6.2-8.2) g/dL Albumin 3.60 L (3.80-4.90) g/dL Microbiology - Last 24 Hours (Table) 08/14/20 17:13 Urine Culture - Preliminary Urine,Clean Catch Gram Neg Bacilli H & H 08/14/20 08/16/20 Range/Units 16:07 07:17 Hgb 11.8 L 10.6 L (13.0-17.5) gm/dL Hct 35.1 L 32.1 L (39.0-53.0) % Coagulation 08/14/20 Range/Units 16:07 INR 1.0 (<1.2) Result Diagrams: 08/16/20 07:17 08/16/20 07:17 Assessment and Plan (1) Syncope Current Visit: Yes Status: Acute Code(s): R55 - SYNCOPE AND COLLAPSE SNOMED Code(s): 038191515 (2) Tibial fracture Current Visit: No Status: Acute Code(s): S82.209A - UNSP FRACTURE OF SHAFT OF UNSP TIBIA, INIT FOR CLOS FX SNOMED Code(s): 96204970 Plan: The clinical and x-ray findings are discussed with the patient and nursing staff. His fracture fixation looks good. The fibular pin is out of the bone approximately 2 cm. It is recommended that he follow-up with his orthopedic surgeon in [place] for further evaluation. There is no indication for emergent intervention.
--- NOTE | 2020-08-16 15:29 | P.DS ---
Providers Date of admission: 08/14/20 20:12 Expected date of discharge: 08/16/20 Attending physician: Hugh Naranjo Consults: 08/15/20 07:02 Consult Physician Routine Consulting Provider: Wes Reyes Consult Reason/Comments: syncope Do you want consulting provider notified?: Yes 08/15/20 14:16 Consult Physician Routine Consulting Provider: Yao Valencia Consult Reason/Comments: left tibia, fibula fracture Do you want consulting provider notified?: Yes 08/15/20 14:18 Consult Physician Routine Consulting Provider: Nkechi Naqvi Consult Reason/Comments: UTI, ? left leg infection Do you want consulting provider notified?: Yes Primary care physician: Maria Ines Jaimes [facility] Course: Diagnosis on discharge: 1. Syncopal episode with fall, will check echocardiogram and carotid Doppler, monitor on telemetry cardiology consult requested 2. Underlying history of atrial fibrillation heart rate is well-controlled, patient is maintained on Xarelto 20 mg daily 3. Underlying history of COPD stable at this time 4. Underlying history of hypertension 5. Underlying history of hyperlipidemia 6. Underlying history of glaucoma 7. Underlying history of benign prostatic hypertrophy 8. Recent fall with left tibia and fibula fracture 9. Evidence of urinary tract infection, started on Rocephin 1 g IV every 24 hours 10. 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 Hospital course: Bladimir March, is an 80-year-old male who presented to [facility] after having a syncopal episode, patient currently is residing at [facility] apparently he was sitting on a chair and he fell down to the ground, patient was recently seen at [facility] emergency room also for a fall at that time he had evidence of left tibia and fibula fracture, at that time he was transferred to [facility], per patient he had surgery on his leg and currently he has a cast on the left lower extremity. His past medical history is significant for history of hypertension, hyperlipidemia, glaucoma, history of atrial fibrillation, and history of COPD. On review of systems patient is alert, confused in no apparent distress, it is not clear whether this confusion is at his baseline or if patient had any recent decline in his cognitive ability, a computed tomography scan of the brain was done in the emergency room and did not reveal any acute abnormality, there is no fever or chills no headache or dizziness no chest pain no shortness of breath no cough no nausea or vomiting no abdominal pain no diarrhea no blood in the stools no burning with urination no frequency or urgency and no hematuria. On 08/16/2020 patient was seen and examined on the medical floor he is alert, slightly confused in no apparent distress he was evaluated by cardiology and orthopedic surgery and was cleared for discharge. Patient has urinary tract infection and was treated with IV Rocephin as inpatient her urine culture reveals evidence of gram-negative bacilli ID and sensitivity are still pending at this point will place patient on oral Ceftin 500 mg twice daily by mouth for 7 days, his physician as outpatient should follow-up on culture results and adjust antibiotic accordingly Patient Condition at Discharge: Fair Plan - Discharge Summary Discharge Rx Participant: No New Discharge Prescriptions: New Cefuroxime Axetil [Ceftin] 500 mg PO BID 7 Days #14 tab Continue Rivaroxaban [Xarelto] 20 mg PO AC-SUPPER Latanoprost Ophth [Xalatan 0.005%] 1 drop BOTH EYES HS@1999 Furosemide [Lasix] 20 mg PO BID PRN PRN Reason: Edema Flecainide Acetate [Tambocor] 100 mg PO DAILY Atorvastatin Calcium [Lipitor] 20 mg PO HS@1999 oxyCODONE HCL [Roxicodone] 5 mg PO Q4H PRN PRN Reason: Moderate To Severe Pain Acetaminophen Tab [Tylenol] 650 mg PO QID Tiotropium 18 Mcg/Puff [Spiriva] 1 cap INHALATION RT-DAILY Tamsulosin [Flomax] 0.4 mg PO HS Metoprolol Tartrate 25 mg PO BID@0700,1900 Discharge Medication List Furosemide [Lasix] 20 mg PO BID PRN 09/04/15 [History] Latanoprost Ophth [Xalatan 0.005%] 1 drop BOTH EYES HS@199909/04/15 [History] Rivaroxaban [Xarelto] 20 mg PO AC-SUPPER 09/04/15 [History] Atorvastatin Calcium [Lipitor] 20 mg PO HS@199908/08/20 [History] Flecainide Acetate [Tambocor] 100 mg PO DAILY 08/08/20 [History] Acetaminophen Tab [Tylenol] 650 mg PO QID 08/14/20 [History] Metoprolol Tartrate 25 mg PO BID@0700,1900 08/14/20 [History] Tamsulosin [Flomax] 0.4 mg PO HS 08/14/20 [History] Tiotropium 18 Mcg/Puff [Spiriva] 1 cap INHALATION RT-DAILY 08/14/20 [History] oxyCODONE HCL [Roxicodone] 5 mg PO Q4H PRN 08/14/20 [History] Cefuroxime Axetil [Ceftin] 500 mg PO BID 7 Days #14 tab 08/16/20 [Rx] Follow up Appointment(s)/Referral(s): Wes Reyes MD [STAFF PHYSICIAN] - 2 Weeks Maria Ines Jaimes MD [Primary Care Provider] - 1-2 days [facility]Clinic [REFERRING] - 1 Week Discharge/Stand Alone Forms: Who Do I Call?, Help In The Home
[2020-08-16] MEDS ORDERED: METOPROLOL TARTRATE 25 MG TAB PO SCH (16:00)
[2020-08-16] MEDS: RIVAROXABAN 20 MG TAB PO SCH (16:47)
--- NOTE | 2020-08-16 18:13 | PN ---
PROGRESS NOTE DATE OF SERVICE: 08/16/2020 REASON FOR FOLLOWUP: UTI and a question of left leg cellulitis. INTERVAL HISTORY: The patient is currently afebrile. The patient is breathing comfortably. The patient denies having any chest pain or shortness of breath or cough. No abdominal pain or diarrhea. PHYSICAL EXAMINATION: Blood pressure 126/69 with a pulse of 59, temperature 97.3. He is 93% on room air. General description is an elderly male lying in bed in no distress. RESPIRATORY SYSTEM: Unlabored breathing. Clear to auscultation anteriorly. HEART: S1, S2. Regular rate and rhythm. ABDOMEN: Soft. No tenderness. Left leg is currently in the cast. No drainage noted. LABS: Hemoglobin 10.6, white count 8.2, BUN of 16, creatinine 0.6. Urine culture is currently pending. DIAGNOSTIC IMPRESSION AND PLAN: Patient admitted to hospital with a syncopal episode in this patient with recent left tibia/fibula fracture and did have positive urine showing Gram-negative. Patient is covered with cefepime. Will wait for the culture to finalize. The patient noted to have some displacement of the fibular pin, and Orthopedics recommended that the patient be followed by his surgeon. Continue supportive care. MMODL / IJN: [id number] /
[2020-08-16] MEDS ORDERED: METOPROLOL TARTRATE 50 MG TAB PO SCH (21:00)
== END 2020-08-16 19:23 ==
LOC: EC 14:59 → 5NMEDONC 20:12
PROVIDERS: ADMIT Internal Medicine; ATTEND Internal Medicine
DX: R55 Syncope and collapse (principal); W07.XXXA Fall from chair, initial encounter; N39.0 Urinary tract infection, site not specified; J44.9 Chronic obstructive pulmonary disease, unspecified; I48.0 Paroxysmal atrial fibrillation; E78.5 Hyperlipidemia, unspecified; I10 Essential (primary) hypertension; Z95.0 Presence of cardiac pacemaker; Z91.19 Patient's noncompliance with other medical treatment and regimen; I44.2 Atrioventricular block, complete; M79.89 Other specified soft tissue disorders; R41.3 Other amnesia; H40.9 Unspecified glaucoma; S82.402D Unspecified fracture of shaft of left fibula, subsequent encounter for closed fracture with routine healing; G62.9 Polyneuropathy, unspecified; Z90.49 Acquired absence of other specified parts of digestive tract; E66.9 Obesity, unspecified; Z68.28 Body mass index [BMI] 28.0-28.9, adult; Z98.890 Other specified postprocedural states; Z82.49 Family history of ischemic heart disease and other diseases of the circulatory system; Z83.6 Family history of other diseases of the respiratory system; J84.10 Pulmonary fibrosis, unspecified; D64.9 Anemia, unspecified; Z87.891 Personal history of nicotine dependence; N40.0 Benign prostatic hyperplasia without lower urinary tract symptoms; Z79.01 Long term (current) use of anticoagulants; Z79.899 Other long term (current) drug therapy
CPT/HCPCS: 96376; 96365; 96366 ×2; 96375 ×2; 96361; 99285; 36415; 94640 ×2; 93005; 97530; 97162; 97166; 80053 ×2; 83735; 84484; 85025 ×2; 85610; 85730; 81001; 87086; 87077; 87186; 73590; 71046; 93880; 70450; G0378 ×3; C8929; J2060; J0696 ×3; J1170 ×2; Q9950; 93306

== ENCOUNTER 2020-08-16 23:41 | Emergency (ER) | payer MEDICARE, BC ==
--- NOTE | 2020-08-17 00:12 | ED ---
Chest Pain HPI - General Stated Complaint: Altered Mental Status Time Seen by Provider: 08/16/20 23:49 Source: patient, police, EMS Mode of arrival: EMS Limitations: altered mental status - Related Data Home Medications Medication Instructions Recorded Confirmed Furosemide [Lasix] 20 mg PO BID PRN 09/04/15 08/14/20 Latanoprost Ophth [Xalatan 0.005%] 1 drop BOTH EYES HS@199909/04/15 08/14/20 Rivaroxaban [Xarelto] 20 mg PO AC-SUPPER 09/04/15 08/14/20 Atorvastatin Calcium [Lipitor] 20 mg PO HS@199908/08/20 08/14/20 Flecainide Acetate [Tambocor] 100 mg PO DAILY 08/08/20 08/14/20 Acetaminophen Tab [Tylenol] 650 mg PO QID 08/14/20 08/14/20 Metoprolol Tartrate 25 mg PO BID@0700,1900 08/14/20 08/14/20 Tamsulosin [Flomax] 0.4 mg PO HS 08/14/20 08/14/20 Tiotropium 18 Mcg/Puff [Spiriva] 1 cap INHALATION RT-DAILY 08/14/20 08/14/20 oxyCODONE HCL [Roxicodone] 5 mg PO Q4H PRN 08/14/20 08/14/20 Previous Rx's Medication Instructions Recorded Cefuroxime Axetil [Ceftin] 500 mg PO BID 7 Days #14 tab 08/16/20 Allergies Allergy/AdvReac Type Severity Reaction Status Date / Time No Known Allergies Allergy Verified 08/16/20 23:51 Review of Systems ROS Statement: Those systems with pertinent positive or pertinent negative responses have been documented in the HPI. ROS Other: All systems not noted in ROS Statement are negative. Past Medical History Past Medical History: Atrial Fibrillation, COPD, Eye Disorder, Hyperlipidemia, Hypertension Additional Past Medical History / Comment(s): glaucoma, hx neuropathy, History of Any Multi-Drug Resistant Organisms: None Reported Past Surgical History: Back Surgery, Cholecystectomy, Hernia Repair Additional Past Surgical History / Comment(s): colonoscopy, surgery for pinched nerve in back Past Anesthesia/Blood Transfusion Reactions: No Reported Reaction Past Psychological History: No Psychological Hx Reported Smoking Status: Former smoker Past Alcohol Use History: None Reported Past Drug Use History: None Reported - Past Family History Mother Family Medical History: No Reported History Father Family Medical History: AICD/Pacemaker, Coronary Artery Disease (CAD), Respiratory Disorder Additional Family Medical History / Comment(s): Pacemaker General Exam Limitations: altered mental status Course Vital Signs 08/16/20 23:42 Temperature 98.1 F Pulse Rate 75 Respiratory 16 Rate Blood Pressure 123/80 O2 Sat by Pulse 97 Oximetry Disposition Clinical Impression: Delirium due to general medical condition, Dementia Disposition: HOME SELF-CARE Condition: Good Instructions (If sedation given, give patient instructions): Altered Mental Status (ED) Is patient prescribed a controlled substance at d/c from ED?: No Referrals: Maria Ines Jaimes MD [Primary Care Provider] - 1-2 days Clary Capellan MD [REFERRING] - 1-2 days
[2020-08-17 01:17] LABS: Basophils % (A) 0 %; Eosinophils # (A) 0.3 k/uL (0-0.7); Eosinophils % (A) 3 %; HCT 35.3 % (39.0-53.0); HGB 11.2 gm/dL (13.0-17.5); Hypochromasia Slight; Lymphocytes # (A) 1.3 k/uL (1.0-4.8); Lymphocytes % (A) 14 %; MCH 28.9 pg (25.0-35.0); MCHC 31.9 g/dL (31.0-37.0); MCV 90.6 fL (80.0-100.0); Mean Platelet Volume 7.3; Monocytes # (A) 0.6 k/uL (0-1.0); Monocytes % (A) 6 %; Neutrophils # (A) 6.7 k/uL (1.3-7.7); Neutrophils % (A) 74 %; Platelet Count 274 k/uL (150-450); RBC 3.89 m/uL (4.30-5.90); RDW 15.2 % (11.5-15.5); WBC 9.1 k/uL (3.8-10.6)
[2020-08-17 01:21] LABS: Appearance,Urine Clear (Clear); Bilirubin,Urine Negative (Negative); Blood,Urine Negative (Negative); Color,Urine Yellow; Glucose,Urine (UA) Negative (Negative); Ketones,Urine Negative (Negative); Leukocyte Esterase,Urine Negative (Negative); Nitrite,Urine Negative (Negative); PH, Urine 6.5 (5.0-8.0); Protein,Urine Negative (Negative); Specific Gravity,Urine 1.017 (1.001-1.035)
[2020-08-17 01:28] LABS: ALT 21 U/L (4-49); AST 34 U/L (17-59); African American GFR (CKD) >90 (>60 ml/min/1.73 sqM); Albumin 3.5 g/dL (3.5-5.0); Alkaline Phosphatase 148 U/L (38-126); Anion Gap 7 mmol/L; Blood Urea Nitrogen 22 mg/dL (9-20); Calcium 8.7 mg/dL (8.4-10.2); Carbon Dioxide 21 mmol/L (22-30); Chloride 106 mmol/L (98-107); Glucose 100 mg/dL (74-99); Magnesium 2.2 mg/dL (1.6-2.3); Non-African American GFR(CKD) >90 (>60 ml/min/1.73 sqM); Potassium 4.1 mmol/L (3.5-5.1); Sodium 134 mmol/L (137-145); Total Bilirubin 1.5 mg/dL (0.2-1.3); Total Protein 6.7 g/dL (6.3-8.2)
[2020-08-17 04:51] VITALS: BP 145/81; PULSE 92; RESP 18; TEMP 98.3
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
== END 2020-08-17 05:54 | disposition home or self-care (01) ==
LOC: EC 23:41
DX: F05 Delirium due to known physiological condition (principal); F03.90 Unspecified dementia, unspecified severity, without behavioral disturbance, psychotic disturbance, mood disturbance, and anxiety; I10 Essential (primary) hypertension; J44.9 Chronic obstructive pulmonary disease, unspecified; E78.5 Hyperlipidemia, unspecified; H40.9 Unspecified glaucoma; I48.91 Unspecified atrial fibrillation; Z79.01 Long term (current) use of anticoagulants; Z79.899 Other long term (current) drug therapy; Z87.891 Personal history of nicotine dependence
CPT/HCPCS: 36415; 80053; 81003; 82075; 83735; 84484; 85025; 99285

== ENCOUNTER 2020-08-22 18:02 | Emergency (ER) | payer MEDICARE, BC ==
[2020-08-22 18:21] VITALS: BP 136/56; PULSE 72; RESP 16; TEMP 98
--- NOTE | 2020-08-22 19:05 | XR ---
PROCEDURE: XR tibia fibula LT - 4V DATE AND TIME: 08/22/2020 6:49 PM CLINICAL INDICATION: PHH; post op TECHNIQUE: Department protocol COMPARISON: 08/16/2020 FINDINGS: AP and lateral views were obtained from the knee to the ankle. The position and appearance of the fracture fragments and the orthopedic hardware are well-visualized. No unexpected findings. IMPRESSION: Postoperative status.
--- NOTE | 2020-08-22 19:41 | ED ---
General Adult HPI - General Chief complaint: Extremity Injury, Lower Stated complaint: Cast replacement Time Seen by Provider: 08/22/20 18:16 Source: patient, EMS, RN notes reviewed, old records reviewed Mode of arrival: EMS Limitations: no limitations - History of Present Illness Initial comments: 80-year-old male with recent history of fibula and tibia fracture status post intramedullary danielle and male presenting for evaluation after he removed his splint. He has dementia and [facility] Apparently the patient had removed his splint and is presenting for evaluation. Uncertain if there was trauma to the leg after the splint was removed. The patient himself has no complaints, he is alert and oriented 1. - Related Data Home Medications Medication Instructions Recorded Confirmed Furosemide [Lasix] 20 mg PO BID PRN 09/04/15 08/14/20 Latanoprost Ophth [Xalatan 0.005%] 1 drop BOTH EYES HS@199909/04/15 08/14/20 Rivaroxaban [Xarelto] 20 mg PO AC-SUPPER 09/04/15 08/14/20 Atorvastatin Calcium [Lipitor] 20 mg PO HS@199908/08/20 08/14/20 Flecainide Acetate [Tambocor] 100 mg PO DAILY 08/08/20 08/14/20 Acetaminophen Tab [Tylenol] 650 mg PO QID 08/14/20 08/14/20 Metoprolol Tartrate 25 mg PO BID@0700,1900 08/14/20 08/14/20 Tamsulosin [Flomax] 0.4 mg PO HS 08/14/20 08/14/20 Tiotropium 18 Mcg/Puff [Spiriva] 1 cap INHALATION RT-DAILY 08/14/20 08/14/20 oxyCODONE HCL [Roxicodone] 5 mg PO Q4H PRN 08/14/20 08/14/20 Previous Rx's Medication Instructions Recorded Cefuroxime Axetil [Ceftin] 500 mg PO BID 7 Days #14 tab 08/16/20 Allergies Allergy/AdvReac Type Severity Reaction Status Date / Time No Known Allergies Allergy Verified 08/16/20 23:51 Review of Systems ROS Statement: Those systems with pertinent positive or pertinent negative responses have been documented in the HPI. ROS Other: All systems not noted in ROS Statement are negative. Past Medical History Past Medical History: Atrial Fibrillation, COPD, Eye Disorder, Hyperlipidemia, Hypertension Additional Past Medical History / Comment(s): glaucoma, hx neuropathy, History of Any Multi-Drug Resistant Organisms: None Reported Past Surgical History: Back Surgery, Cholecystectomy, Hernia Repair, Orthopedic Surgery, Pacemaker Additional Past Surgical History / Comment(s): colonoscopy, surgery for pinched nerve in back, fractured left tibia/fibula Past Anesthesia/Blood Transfusion Reactions: No Reported Reaction Past Psychological History: No Psychological Hx Reported Smoking Status: Former smoker Past Alcohol Use History: None Reported Past Drug Use History: None Reported - Past Family History Mother Family Medical History: No Reported History Father Family Medical History: AICD/Pacemaker, Coronary Artery Disease (CAD), Respiratory Disorder Additional Family Medical History / Comment(s): Pacemaker General Exam Limitations: no limitations Head exam: Present: atraumatic, normocephalic Eye exam: Present: normal appearance, PERRL ENT exam: Present: normal exam Neck exam: Present: normal inspection. Absent: tenderness, meningismus Respiratory exam: Present: normal lung sounds bilaterally. Absent: respiratory distress Cardiovascular Exam: Present: regular rate, normal rhythm GI/Abdominal exam: Present: soft. Absent: distended, tenderness, guarding Extremities exam: Present: pedal edema, other (Incisions are clean, nuvia are intact, there is no purulence. There is soft tissue swelling from the ankle to the knee, good cap refill. These are expected postsurgical changes. ) Course Vital Signs 08/22/20 18:05 Temperature 98.0 F Pulse Rate 72 Respiratory 16 Rate Blood Pressure 136/56 O2 Sat by Pulse 98 Oximetry Procedures - Orthopedic Splinting/Casting Injury #1 Side: left Lower Extremity Injury Location: short leg, ankle Lower Extremity Immobilizer: posterior splint, stirrup splint Medical Decision Making - Medical Decision Making Splint is reapplied after x-ray is performed which shows intramedullary danielle of the tibia, intramedullary nail of the fibula. This is unchanged from prior. His incisions are well healing. stirrup and posterior splint are applied. Patient will follow-up with his orthopedic surgeon. Disposition Clinical Impression: Tibial fracture Disposition: HOME SELF-CARE Condition: Fair Instructions (If sedation given, give patient instructions): ORIF of a Leg Fracture (DC) Additional Instructions: Please follow up with your orthopedic surgeon as scheduled. Is patient prescribed a controlled substance at d/c from ED?: No Referrals: Sunny Alejandre MD [Primary Care Provider] - 1-2 days
== END 2020-08-22 20:34 | disposition home or self-care (01) ==
LOC: EC 18:02
DX: S82.892D Other fracture of left lower leg, subsequent encounter for closed fracture with routine healing (principal); I48.91 Unspecified atrial fibrillation; I10 Essential (primary) hypertension; E78.5 Hyperlipidemia, unspecified; J44.9 Chronic obstructive pulmonary disease, unspecified; F03.90 Unspecified dementia, unspecified severity, without behavioral disturbance, psychotic disturbance, mood disturbance, and anxiety; Z79.01 Long term (current) use of anticoagulants; Z79.899 Other long term (current) drug therapy; Z95.0 Presence of cardiac pacemaker; Z87.891 Personal history of nicotine dependence; X58.XXXD Exposure to other specified factors, subsequent encounter
CPT/HCPCS: 29515; 99284

== ENCOUNTER 2020-10-23 22:28 | Inpatient (IN) | payer MEDICARE, BC ==
[2020-10-23] MEDS ORDERED: SODIUM CHLORIDE 0.9% 1,000 ML IV STA ×2 (22:50)
--- NOTE | 2020-10-23 22:51 | ED ---
Weakness HPI - General Chief complaint: Weakness Stated complaint: weakness Time Seen by Provider: 10/23/20 22:40 Source: patient, EMS, RN notes reviewed, old records reviewed Mode of arrival: EMS Limitations: no limitations - History of Present Illness Initial comments: This is an 80-year-old male to the ER. Patient presents today for evaluation, patient recently presented outside facility for dementia weakness shortness of breath. Patient is argumentative and agitated here in the arrival to emergency department. History obtained from EMS and patient's prior charting MD Complaint: generalized weakness, lack of energy -: unknown Location: generalized Severity: mild Severity scale (1-10): 3 Consistency: constant Improves with: none Worsens with: none Context: recent illness Associated Symptoms: confusion, shortness of breath - Related Data Home Medications Medication Instructions Recorded Confirmed Furosemide [Lasix] 20 mg PO BID 09/04/15 10/24/20 Rivaroxaban [Xarelto] 20 mg PO AC-SUPPER 09/04/15 10/24/20 Atorvastatin Calcium [Lipitor] 20 mg PO HS@199908/08/20 10/24/20 Flecainide Acetate [Tambocor] 100 mg PO BID 08/08/20 10/24/20 Acetaminophen Tab [Tylenol] 650 mg PO QID 08/14/20 10/24/20 Metoprolol Tartrate 25 mg PO BID 08/14/20 10/24/20 Tamsulosin [Flomax] 0.4 mg PO HS 08/14/20 10/24/20 Tiotropium 18 Mcg/Puff [Spiriva] 2 puff INHALATION RT-DAILY 08/14/20 10/24/20 Levothyroxine Sodium 25 mcg PO DAILY 10/24/20 10/24/20 [Levothyroxine] Timolol 0.5% Ophth Soln [Timoptic 1 drop BOTH EYES BID 10/24/20 10/24/20 0.5% Ophth Soln] risperiDONE 0.5 mg PO HS 10/24/20 10/24/20 Allergies Allergy/AdvReac Type Severity Reaction Status Date / Time No Known Allergies Allergy Verified 10/23/20 23:44 Review of Systems ROS Statement: Those systems with pertinent positive or pertinent negative responses have been documented in the HPI. ROS Other: All systems not noted in ROS Statement are negative. Past Medical History Past Medical History: Atrial Fibrillation, COPD, Dementia, Eye Disorder, Hyperlipidemia, Hypertension Additional Past Medical History / Comment(s): glaucoma, hx neuropathy, L sided facial droop. History of Any Multi-Drug Resistant Organisms: None Reported Past Surgical History: Back Surgery, Cholecystectomy, Hernia Repair, Orthopedic Surgery, Pacemaker Additional Past Surgical History / Comment(s): colonoscopy, surgery for pinched nerve in back, fractured left tibia/fibula, pacer. Past Anesthesia/Blood Transfusion Reactions: No Reported Reaction Past Psychological History: No Psychological Hx Reported Smoking Status: Former smoker Past Alcohol Use History: None Reported Past Drug Use History: None Reported - Past Family History Mother Family Medical History: No Reported History Father Family Medical History: AICD/Pacemaker, Coronary Artery Disease (CAD), Respiratory Disorder Additional Family Medical History / Comment(s): Pacemaker General Exam Limitations: altered mental status General appearance: alert, in no apparent distress, anxious, in distress Head exam: Present: atraumatic, normocephalic, normal inspection Eye exam: Present: normal appearance, PERRL, EOMI. Absent: scleral icterus, conjunctival injection, periorbital swelling ENT exam: Present: normal exam, mucous membranes moist Neck exam: Present: normal inspection. Absent: tenderness, meningismus, lymphadenopathy Respiratory exam: Present: normal lung sounds bilaterally. Absent: respiratory distress, wheezes, rales, rhonchi, stridor Cardiovascular Exam: Present: regular rate, normal rhythm, normal heart sounds. Absent: systolic murmur, diastolic murmur, rubs, gallop, clicks GI/Abdominal exam: Present: soft, normal bowel sounds. Absent: distended, tenderness, guarding, rebound, rigid Extremities exam: Present: normal inspection, full ROM, normal capillary refill. Absent: tenderness, pedal edema, joint swelling, calf tenderness Back exam: Present: normal inspection Neurological exam: Present: alert, oriented X3, CN II-XII intact Psychiatric exam: Present: normal affect, normal mood Skin exam: Present: warm, dry, intact, normal color. Absent: rash Course Vital Signs 10/23/20 10/24/20 10/24/20 22:32 03:36 04:00 Temperature 98.8 F 98.1 F Pulse Rate 75 89 89 Respiratory 18 16 18 Rate Blood Pressure 122/73 152/77 O2 Sat by Pulse 97 97 Oximetry 10/24/20 10/24/20 10/24/20 05:00 15:04 16:56 Temperature Pulse Rate 77 Respiratory 18 16 Rate Blood Pressure 123/78 O2 Sat by Pulse 96 100 99 Oximetry 10/24/20 18:31 Temperature 97.9 F Pulse Rate 78 Respiratory 16 Rate Blood Pressure 130/82 O2 Sat by Pulse 99 Oximetry - Reevaluation(s) Reevaluation #1: Medical record is reviewed Patient accepted in transfer for COPD and CHF - Consultations Consultation #1: Spoke with Dr. Naranjo who agrees to admit the patient Medical Decision Making - Medical Decision Making 1 male with history of dementia coming in for weakness persistent dementia weakness and CHF and COPD exacerbation. Patient be admitted for treatment of the above - Lab Data Result diagrams: 10/30/20 10:31 10/30/20 10:31 Lab Results 10/24/20 10/24/20 10/24/20 Range/Units 08:56 08:56 08:56 WBC 6.6 (3.8-10.6) k/uL RBC 4.36 (4.30-5.90) m/uL Hgb 12.3 L (13.0-17.5) gm/dL Hct 37.2 L (39.0-53.0) % MCV 85.3 (80.0-100.0) fL MCH 28.3 (25.0-35.0) pg MCHC 33.1 (31.0-37.0) g/dL RDW 15.4 (11.5-15.5) % Plt Count 162 (150-450) k/uL MPV 6.9 Neutrophils % 87 % Lymphocytes % 8 % Monocytes % 3 % Eosinophils % 0 % Basophils % 0 % Neutrophils # 5.8 (1.3-7.7) k/uL Lymphocytes # 0.5 L (1.0-4.8) k/uL Monocytes # 0.2 (0-1.0) k/uL Eosinophils # 0.0 (0-0.7) k/uL Basophils # 0.0 (0-0.2) k/uL PT 14.6 H (9.0-12.0) sec INR 1.4 H (<1.2) APTT 28.2 (22.0-30.0) sec Sodium 137 (137-145) mmol/L Potassium 3.7 (3.5-5.1) mmol/L Chloride 108 H (98-107) mmol/L Carbon Dioxide 23 (22-30) mmol/L Anion Gap 6 mmol/L BUN 26 H (9-20) mg/dL Creatinine 1.03 (0.66-1.25) mg/dL Est GFR (CKD-EPI)AfAm 79 (>60 ml/min/1.73 sqM) Est GFR (CKD-EPI)NonAf 68 (>60 ml/min/1.73 sqM) Glucose 127 H (74-99) mg/dL POC Glucose (mg/dL) (75-99) mg/dL POC Glu Care Manager ID Calcium 8.1 L (8.4-10.2) mg/dL Total Bilirubin 1.8 H (0.2-1.3) mg/dL AST 37 (17-59) U/L ALT 18 (4-49) U/L Alkaline Phosphatase 152 H (38-126) U/L Creatine Kinase 155 (55-170) U/L CK-MB (CK-2) (0.0-2.4) ng/mL Troponin I (0.000-0.034) ng/mL NT-Pro-B Natriuret Pep pg/mL Total Protein 5.9 L (6.3-8.2) g/dL Albumin 2.7 L (3.5-5.0) g/dL TSH 1.410 (0.465-4.680) mIU/L 10/24/20 10/24/20 10/24/20 Range/Units 08:56 08:56 20:21 WBC (3.8-10.6) k/uL RBC (4.30-5.90) m/uL Hgb (13.0-17.5) gm/dL Hct (39.0-53.0) % MCV (80.0-100.0) fL MCH (25.0-35.0) pg MCHC (31.0-37.0) g/dL RDW (11.5-15.5) % Plt Count (150-450) k/uL MPV Neutrophils % % Lymphocytes % % Monocytes % % Eosinophils % % Basophils % % Neutrophils # (1.3-7.7) k/uL Lymphocytes # (1.0-4.8) k/uL Monocytes # (0-1.0) k/uL Eosinophils # (0-0.7) k/uL Basophils # (0-0.2) k/uL PT (9.0-12.0) sec INR (<1.2) APTT (22.0-30.0) sec Sodium (137-145) mmol/L Potassium (3.5-5.1) mmol/L Chloride (98-107) mmol/L Carbon Dioxide (22-30) mmol/L Anion Gap mmol/L BUN (9-20) mg/dL Creatinine (0.66-1.25) mg/dL Est GFR (CKD-EPI)AfAm (>60 ml/min/1.73 sqM) Est GFR (CKD-EPI)NonAf (>60 ml/min/1.73 sqM) Glucose (74-99) mg/dL POC Glucose (mg/dL) (75-99) mg/dL POC Glu Care Manager ID Calcium (8.4-10.2) mg/dL Total Bilirubin (0.2-1.3) mg/dL AST (17-59) U/L ALT (4-49) U/L Alkaline Phosphatase (38-126) U/L Creatine Kinase (55-170) U/L CK-MB (CK-2) 0.9 (0.0-2.4) ng/mL Troponin I 0.100 H* 0.036 H* (0.000-0.034) ng/mL NT-Pro-B Natriuret Pep 4390 pg/mL Total Protein (6.3-8.2) g/dL Albumin (3.5-5.0) g/dL TSH (0.465-4.680) mIU/L 10/24/20 10/25/20 Range/Units 20:30 06:21 WBC (3.8-10.6) k/uL RBC (4.30-5.90) m/uL Hgb (13.0-17.5) gm/dL Hct (39.0-53.0) % MCV (80.0-100.0) fL MCH (25.0-35.0) pg MCHC (31.0-37.0) g/dL RDW (11.5-15.5) % Plt Count (150-450) k/uL MPV Neutrophils % % Lymphocytes % % Monocytes % % Eosinophils % % Basophils % % Neutrophils # (1.3-7.7) k/uL Lymphocytes # (1.0-4.8) k/uL Monocytes # (0-1.0) k/uL Eosinophils # (0-0.7) k/uL Basophils # (0-0.2) k/uL PT (9.0-12.0) sec INR (<1.2) APTT (22.0-30.0) sec Sodium (137-145) mmol/L Potassium (3.5-5.1) mmol/L Chloride (98-107) mmol/L Carbon Dioxide (22-30) mmol/L Anion Gap mmol/L BUN (9-20) mg/dL Creatinine (0.66-1.25) mg/dL Est GFR (CKD-EPI)AfAm (>60 ml/min/1.73 sqM) Est GFR (CKD-EPI)NonAf (>60 ml/min/1.73 sqM) Glucose (74-99) mg/dL POC Glucose (mg/dL) 206 H 140 H (75-99) mg/dL POC Glu Care Manager ID Robb, Jaydon Robb, Jaydon Calcium (8.4-10.2) mg/dL Total Bilirubin (0.2-1.3) mg/dL AST (17-59) U/L ALT (4-49) U/L Alkaline Phosphatase (38-126) U/L Creatine Kinase (55-170) U/L CK-MB (CK-2) (0.0-2.4) ng/mL Troponin I (0.000-0.034) ng/mL NT-Pro-B Natriuret Pep pg/mL Total Protein (6.3-8.2) g/dL Albumin (3.5-5.0) g/dL TSH (0.465-4.680) mIU/L Disposition Clinical Impression: Dehydration, Weakness, CHF (congestive heart failure), COPD (chronic obstruct stefano pulmonary disease), Dementia Disposition: ADMITTED IP TO THIS HOSP Condition: Fair Is patient prescribed a controlled substance at d/c from ED?: No
[2020-10-24] MEDS: FUROSEMIDE 10 MG/ML 4 ML VIAL IV SCH ×3 (04:23→22:12)
[2020-10-24] MEDS: methylPREDNISolone SOD SUCCI 125 MG/2 ML VIAL IV SCH ×5 (05:50→22:12)
[2020-10-24] MEDS ORDERED: FUROSEMIDE 10 MG/ML 4 ML VIAL IV STA (05:53)
[2020-10-24 09:14] LABS: Basophils % (A) 0 %; Eosinophils % (A) 0 %; HCT 37.2 % (39.0-53.0); HGB 12.3 gm/dL (13.0-17.5); Lymphocytes # (A) 0.5 k/uL (1.0-4.8); Lymphocytes % (A) 8 %; MCH 28.3 pg (25.0-35.0); MCHC 33.1 g/dL (31.0-37.0); MCV 85.3 fL (80.0-100.0); Mean Platelet Volume 6.9; Monocytes # (A) 0.2 k/uL (0-1.0); Monocytes % (A) 3 %; Neutrophils # (A) 5.8 k/uL (1.3-7.7); Neutrophils % (A) 87 %; Platelet Count 162 k/uL (150-450); RBC 4.36 m/uL (4.30-5.90); RDW 15.4 % (11.5-15.5); WBC 6.6 k/uL (3.8-10.6)
[2020-10-24 09:18] LABS: INR 1.4 (<1.2); Partial Thromboplastin Time 28.2 sec (22.0-30.0); Prothrombin Time 14.6 sec (9.0-12.0)
[2020-10-24 09:22] LABS: Albumin 2.7 g/dL (3.5-5.0); Calcium 8.1 mg/dL (8.4-10.2); Potassium 3.7 mmol/L (3.5-5.1); Total Bilirubin 1.8 mg/dL (0.2-1.3); Total Protein 5.9 g/dL (6.3-8.2)
[2020-10-24 10:03] LABS: Creatine Kinase MB 0.9 ng/mL (0.0-2.4)
[2020-10-24 10:07] LABS: Troponin I 0.1 ng/mL (0.000-0.034)
--- NOTE | 2020-10-24 10:31 | CONS ---
CONSULTATION CHIEF COMPLAINT: Fatigue, tiredness, not feeling well. Mr. March is an 80-year-old gentleman with severe dementia, hypothyroidism, COPD, permanent atrial fibrillation, dyslipidemia, and permanent pacemaker, who was transferred from [facility] when he presented there with symptoms of not feeling well and had very mild troponin elevation. At the time of my evaluation in the emergency room today, he appears pleasantly confused. He does not seem to be in distress but is somewhat restless and is trying to get out of the bed. He does not have any leg edema. Denies any shortness of breath, PND or orthopnea. He is lying flat in the bed. I do not have any labs on him from here. I am going to obtain CBC, electrolytes, troponin, BNP, and I reviewed the information that has been transmitted from the other hospital. The patient is currently on Tambocor, but an EKG on him at the other hospital showed atrial fibrillation due to which I am going to stop the Tambocor at this time. He is on Xarelto, metoprolol, Lipitor, aspirin, which should all be resumed. PAST MEDICAL HISTORY: Significant for permanent atrial fibrillation, history of permanent pacemaker, hypothyroidism, dementia. MEDICATIONS: Medications at home include Lipitor 20 q. daily, Tambocor 100 b.i.d., Lasix 20 b.i.d., metoprolol 25 b.i.d., Xarelto 20 q. daily, Flomax, Spiriva, levothyroxine, timolol, risperidone, and Tylenol. ALLERGIES: There are no known drug allergies. FAMILY HISTORY, SOCIAL HISTORY, REVIEW OF SYSTEMS: I am unable to obtain from the patient who is confused. PHYSICAL EXAMINATION: Afebrile. Heart rate is 89 beats per minute. Blood pressure is 150/77. Respiratory rate is 18. O2 saturation is 97% on room air. There is no jugular venous distention. Chest exam reveals diminished air entry at the bases with occasional rhonchi. Heart exam reveals first and second heart sounds, irregular rhythm and a systolic murmur at the apex. Abdomen is soft. Examination of extremities did not reveal any edema. Peripheral pulses are felt. ASSESSMENT: 1. Mild troponin elevation of unclear clinical significance. Clinical presentation is not consistent with acute myocardial infarction. 2. Permanent atrial fibrillation with controlled ventricular rate. 3. History of sick sinus syndrome, status post permanent pacemaker. 4. Dementia. PLAN: I will obtain an EKG, electrolytes, BNP, troponin and continue him on his current medications and see how things evolve with him. He does not need any invasive testing nor is he a candidate for it. Thank you for allowing us to participate in the care of this pleasant gentleman. KHALIDA / CANDI: [id number] /
--- NOTE | 2020-10-24 11:52 | ECHOF ---
Referral Reason:Cariodology MEASUREMENTS -------- HEIGHT: 185.4 cm WEIGHT: 95.3 kg BP: 152/77 RVIDd: 2.9 cm (< 3.3) IVSd: 1.4 cm (0.6 - 1.1) LVIDd: 4.8 cm (3.9 - 5.3) LVPWd: 1.3 cm (0.6 - 1.1) IVSs: 2.0 cm LVIDs: 2.8 cm LVPWs: 1.7 cm LA Diam: 3.5 cm (2.7 - 3.8) Ao Diam: 3.4 cm (2.0 - 3.7) AV Cusp: 1.9 cm (1.5 - 2.6) MV EXCURSION: 12.842 mm (> 18.000) MV EF SLOPE: 38 mm/s (70 - 150) EPSS: 2.3 cm MV E Corky: 0.50 m/s MV DecT: 361 ms MV A Corky: 0.99 m/s MV E/A Ratio: 0.51 AR PHT: 1020 ms RAP: 5.00 mmHg RVSP: 34.93 mmHg FINDINGS -------- Sinus rhythm. This was a technically difficult study with suboptimal views. The left ventricular size is normal. There is moderate concentric left ventricular hypertrophy. O verall left ventricular systolic function is normal with, an EF between 55 - 60 %. The right ventricle is normal in size. The left atrium is normal in size. The right atrium is normal in size. 5 ml of Lumason was utilized for enhancement of images. Interatrial and interventricular septum intact. There is mild aortic valve sclerosis. There is mild aortic regurgitation. The mitral valve is normal. Mild tricuspid regurgitation present. There is mild pulmonary hypertension. The right ventricular systolic pressure, as measured by Doppler, is 34.93mmHg. Trace/mild (physiologic) pulmonic regurgitation. The aortic root size is normal. Normal inferior vena cava with normal inspiratory collapse consistent with estimated right atrial pre ssure of 5 mmHg. There is no pericardial effusion. CONCLUSIONS -------- 1. The left ventricular size is normal. 2. There is moderate concentric left ventricular hypertrophy. 3. Overall left ventricular systolic function is normal with, an EF between 55 - 60 %. 4. xx ml of Lumason was utilized for enhancement of images. 5. There is mild aortic valve sclerosis. 6. There is mild aortic regurgitation. 7. Mild tricuspid regurgitation present. 8. There is mild pulmonary hypertension. 9. The right ventricular systolic pressure, as measured by Doppler, is 34.93mmHg. 10. Trace/mild (physiologic) pulmonic regurgitation. 11. There is no pericardial effusion. [employer] FEEDER: Tess Richter RDCS
[2020-10-24] MEDS: risperiDONE 0.5 MG TAB PO SCH (18:45)
--- NOTE | 2020-10-24 19:41 | P.HPIM ---
History of Present Illness H&P Date: 10/24/20 Bladimir March, is an 80 year old male, patient of Dr Jaimes who presented to [facility] with a chief complaint of generalized weakness, he was evaluated in the emergency room vital examination on presentation revealed a temperature of 98.8 pulse 75 respiration 18 blood pressure 122/73 pulse ox 97% on room air his white blood count was 6.6 hemoglobin 12.3 platelet count 162 INR was 1.4 sodium 137 potassium 3.7 chloride 108 BUN 26 creatinine 1.03 glucose 127 total bilirubin 1.8 troponin level was 0.1 BNP was 4319 and TSH 1.41 patient was admitted to telemetry floor cardiology consultation was requested. His past medical history is significant for history of persistent atrial fi brillation, history of hypertension, history of hyperlipidemia, history of pacemaker placement, history of dementia, history of pulmonary fibrosis, and history of hypothyroidism Past Medical History Past Medical History: Atrial Fibrillation, COPD, Dementia, Eye Disorder, Hyperlipidemia, Hypertension Additional Past Medical History / Comment(s): glaucoma, hx neuropathy, L sided facial droop. History of Any Multi-Drug Resistant Organisms: None Reported Past Surgical History: Back Surgery, Cholecystectomy, Hernia Repair, Orthopedic Surgery, Pacemaker Additional Past Surgical History / Comment(s): colonoscopy, surgery for pinched nerve in back, fractured left tibia/fibula, pacer. Past Anesthesia/Blood Transfusion Reactions: No Reported Reaction Past Psychological History: No Psychological Hx Reported Smoking Status: Former smoker Past Alcohol Use History: None Reported Past Drug Use History: None Reported - Past Family History Mother Family Medical History: No Reported History Father Family Medical History: AICD/Pacemaker, Coronary Artery Disease (CAD), Respiratory Disorder Additional Family Medical History / Comment(s): Pacemaker Medications and Allergies Home Medications Medication Instructions Recorded Confirmed Type Furosemide [Lasix] 20 mg PO BID 09/04/15 10/24/20 History Rivaroxaban [Xarelto] 20 mg PO AC-SUPPER 09/04/15 10/24/20 History Atorvastatin Calcium [Lipitor] 20 mg PO HS@199908/08/20 10/24/20 History Flecainide Acetate [Tambocor] 100 mg PO BID 08/08/20 10/24/20 History Acetaminophen Tab [Tylenol] 650 mg PO QID 08/14/20 10/24/20 History Metoprolol Tartrate 25 mg PO BID 08/14/20 10/24/20 History Tamsulosin [Flomax] 0.4 mg PO HS 08/14/20 10/24/20 History Tiotropium 18 Mcg/Puff [Spiriva] 2 puff INHALATION RT-DAILY 08/14/20 10/24/20 History Levothyroxine Sodium 25 mcg PO DAILY 10/24/20 10/24/20 History [Levothyroxine] Timolol 0.5% Ophth Soln [Timoptic 1 drop BOTH EYES BID 10/24/20 10/24/20 History 0.5% Ophth Soln] risperiDONE 0.5 mg PO HS 10/24/20 10/24/20 History Allergies Allergy/AdvReac Type Severity Reaction Status Date / Time No Known Allergies Allergy Verified 10/23/20 23:44 Physical Exam Vitals: Vital Signs Temp Pulse Resp BP Pulse Ox 10/24/20 05:00 18 96 10/24/20 04:00 89 18 10/24/20 03:36 98.1 F 89 16 152/77 97 10/23/20 22:32 98.8 F 75 18 122/73 97 Intake and Output 10/23/20 10/24/20 10/24/20 22:59 06:59 14:59 Other: Weight 92.986 kg In general patient is alert and oriented 3 in no apparent distress HEENT head normocephalic and atraumatic Neck is supple no JVD no goiter no lymphadenopathy Chest exam reveals a few scattered crackles no wheezing Cardiac exam reveals regular heart sounds S1 and S2 no gallops no murmurs Abdomen is soft nontender no organomegaly with normal bowel sounds Extremity exam reveals no edema no cyanosis or clubbing Neurological examination reveals no gross focal deficit Results CBC & Chem 7: 10/24/20 08:56 10/24/20 08:56 Labs: Abnormal Lab Results - Last 24 Hours (Table) 10/24/20 10/24/20 10/24/20 Range/Units 08:56 08:56 08:56 Hgb 12.3 L (13.0-17.5) gm/dL Hct 37.2 L (39.0-53.0) % Lymphocytes # 0.5 L (1.0-4.8) k/uL PT 14.6 H (9.0-12.0) sec INR 1.4 H (<1.2) Chloride 108 H (98-107) mmol/L BUN 26 H (9-20) mg/dL Glucose 127 H (74-99) mg/dL Calcium 8.1 L (8.4-10.2) mg/dL Total Bilirubin 1.8 H (0.2-1.3) mg/dL Alkaline Phosphatase 152 H (38-126) U/L Troponin I (0.000-0.034) ng/mL Total Protein 5.9 L (6.3-8.2) g/dL Albumin 2.7 L (3.5-5.0) g/dL 10/24/20 Range/Units 08:56 Hgb (13.0-17.5) gm/dL Hct (39.0-53.0) % Lymphocytes # (1.0-4.8) k/uL PT (9.0-12.0) sec INR (<1.2) Chloride (98-107) mmol/L BUN (9-20) mg/dL Glucose (74-99) mg/dL Calcium (8.4-10.2) mg/dL Total Bilirubin (0.2-1.3) mg/dL Alkaline Phosphatase (38-126) U/L Troponin I 0.100 H* (0.000-0.034) ng/mL Total Protein (6.3-8.2) g/dL Albumin (3.5-5.0) g/dL Assessment and Plan Plan: Generalized weakness Elevated troponin level, rule out acute myocardial infarction Underlying history of atrial fibrillation Underlying history of hypertension Underlying history of hypothyroidism Underlying history of hyperlipidemia Patient was evaluated in the emergency room He was started on IV steroids and inhaled bronchodilators Cardiology consultation was requested Home medications reviewed and reordered Will check EKG , chest x-ray and repeat cardiac enzymes Will follow closely
[2020-10-24] MEDS: ATORVASTATIN 20 MG TAB PO SCH (20:08)
[2020-10-24] MEDS: TAMSULOSIN 0.4 MG CAP.ER.24H PO SCH (20:08)
[2020-10-24] MEDS: ACETAMINOPHEN TAB 325 MG TAB PO SCH ×2 (20:08→22:07)
[2020-10-24] MEDS: RIVAROXABAN 20 MG TAB PO SCH (20:08)
[2020-10-24] MEDS: FLECAINIDE 50 MG TAB PO SCH (20:08)
[2020-10-24] MEDS: METOPROLOL TARTRATE 25 MG TAB PO SCH (20:08)
[2020-10-24 20:50] LABS: Glucose,Whole Blood 206 mg/dL (75-99)
--- NOTE | 2020-10-24 21:52 | XR ---
EXAMINATION TYPE: XR chest 1V portable DATE OF EXAM: 10/24/2020 COMPARISON: 08/14/2020 HISTORY: Syncope TECHNIQUE: Single frontal view of the chest is obtained. FINDINGS: The lungs are clear consolidative, interstitial or masslike opacity. The heart, pulmonary vasculature, mediastinum and hilum appear normal. There are probable small pleural effusions. There is no pneumothorax. There is a 2-lead cardiac pacemaker. The osseous structures are intact. IMPRESSION: Persistent small pleural effusions. There are no lung infiltrates. IMPRESSION: No acute process.
[2020-10-24] MEDS: TIMOLOL 0.5% OPHTH DROPS 5 ML BTL BOTH EYES SCH (22:07)
[2020-10-24] MEDS: HALOPERIDOL LACTATE 5 MG/ML 1 ML VIAL IM PRN (22:13)
[2020-10-25] MEDS: methylPREDNISolone SOD SUCCI 125 MG/2 ML VIAL IV SCH ×2 (05:25→13:32)
[2020-10-25] MEDS: LEVOTHYROXINE 25 MCG TAB PO SCH (06:11)
[2020-10-25 06:34] LABS: Glucose,Whole Blood 140 mg/dL (75-99)
[2020-10-25] MEDS: IPRATROPIUM-ALBUTEROL 3 ML NEB INHALATION PRN ×4 (07:17→21:14)
[2020-10-25] MEDS: IPRATROPIUM 0.5 MG/2.5 ML NEBU INHALATION SCH ×4 (07:17→21:13)
[2020-10-25] MEDS: METOPROLOL TARTRATE 25 MG TAB PO SCH ×2 (09:02→19:33)
[2020-10-25] MEDS: ACETAMINOPHEN TAB 325 MG TAB PO SCH ×4 (09:02→22:29)
[2020-10-25] MEDS: FLECAINIDE 50 MG TAB PO SCH (09:02)
[2020-10-25] MEDS: TIMOLOL 0.5% OPHTH DROPS 5 ML BTL BOTH EYES SCH ×2 (09:03→19:33)
--- NOTE | 2020-10-25 10:48 | P.PN ---
Subjective Progress Note Date: 10/25/20 Bladimir March, is an 80 year old male, patient of Dr Jaimes who presented to [facility] with a chief complaint of generalized weakness, he was evaluated in the emergency room vital examination on presentation revealed a temperature of 98.8 pulse 75 respiration 18 blood pressure 122/73 pulse ox 97% on room air his white blood count was 6.6 hemoglobin 12.3 platelet count 162 INR was 1.4 sodium 137 potassium 3.7 chloride 108 BUN 26 creatinine 1.03 glucose 127 total bilirubin 1.8 troponin level was 0.1 BNP was 4319 and TSH 1.41 patient was admitted to telemetry floor cardiology consultation was requested. His past medical history is significant for history of persistent atrial fibrillation, history of hypertension, history of hyperlipidemia, history of pacemaker placement, history of dementia, history of pulmonary fibrosis, and history of hypothyroidism 10/25/2020 patient resting comfortably in bed. Reports improvement with shortness of breath. Remains on IV steroids and IV Lasix. 2-D echo completedshowing EF of 55% to 60%. At this time patient denies chest pain. Patient denies denies vomiting and diarrhea. Patient denies any urinary burning or frequency. Pulmonary and cardiology services consulted Objective - Vital Signs Vital signs: Vital Signs Temp 96.5 F L 10/25/20 08:00 Pulse 88 10/25/20 08:00 Resp 16 10/25/20 06:14 BP 127/67 10/25/20 08:00 Pulse Ox 95 10/25/20 08:00 Intake & Output 10/24/20 10/25/20 10/25/20 18:59 06:59 18:59 Intake Total 100 Output Total 1400 Balance -1400 100 Weight 91.5 kg Intake: Oral 100 Output: Urine 1400 Other: Voiding Method Urinal Urinal Incontinent Incontinent # Voids 1 - Exam In general patient is alert and oriented 3 in no apparent distress HEENT head normocephalic and atraumatic Neck is supple no JVD no goiter no lymphadenopathy Chest exam reveals a few scattered crackles no wheezing Cardiac exam reveals regular heart sounds S1 and S2 no gallops no murmurs Abdomen is soft nontender no organomegaly with normal bowel sounds Extremity exam reveals no edema no cyanosis or clubbing Neurological examination reveals no gross focal deficit - Labs CBC & Chem 7: 10/24/20 08:56 10/24/20 08:56 Labs: Abnormal Lab Results - Last 24 Hours (Table) 10/24/20 10/24/20 10/25/20 Range/Units 20:21 20:30 06:21 POC Glucose (mg/dL) 206 H 140 H (75-99) mg/dL Troponin I 0.036 H* (0.000-0.034) ng/mL Assessment and Plan Plan: Generalized weakness Elevated troponin level, rule out acute myocardial infarction COPD exacerbation. Chest x-ray negative. Maintained on IV steroids. Pulmonary services consulted Underlying history of atrial fibrillation Underlying history of hypertension Underlying history of hypothyroidism Underlying history of hyperlipidemia History of sick sinus syndrome status post permanent pacemaker History of dementia DVT prophylaxis Xarelto GI prophylaxis Pepcid Cardiology and pulmonary services consulted IV Lasix and IV steroids
[2020-10-25 11:02] LABS: ALT 19 U/L (4-49); African American GFR (CKD) >90 (>60 ml/min/1.73 sqM); Anion Gap 15 mmol/L; Blood Urea Nitrogen 34 mg/dL (9-20); Carbon Dioxide 21 mmol/L (22-30); Chloride 99 mmol/L (98-107); Glucose 148 mg/dL (74-99); Non-African American GFR(CKD) 82 (>60 ml/min/1.73 sqM); Sodium 135 mmol/L (137-145); Total Bilirubin 0.9 mg/dL (0.2-1.3); Total Protein 6.1 g/dL (6.3-8.2)
[2020-10-25 11:03] LABS: AST 30 U/L (17-59); Alkaline Phosphatase 121 U/L (38-126); Potassium 3.6 mmol/L (3.5-5.1)
[2020-10-25 11:06] LABS: Basophils % (A) 0 %; Eosinophils % (A) 0 %; HCT 38.7 % (39.0-53.0); HGB 12.7 gm/dL (13.0-17.5); Hypochromasia Slight; Lymphocytes # (A) 0.4 k/uL (1.0-4.8); Lymphocytes % (A) 10 %; MCH 28.7 pg (25.0-35.0); MCV 87.2 fL (80.0-100.0); Mean Platelet Volume 7.5; Monocytes # (A) 0.2 k/uL (0-1.0); Monocytes % (A) 5 %; Neutrophils # (A) 3.7 k/uL (1.3-7.7); Neutrophils % (A) 84 %; Platelet Count 172 k/uL (150-450); RBC 4.43 m/uL (4.30-5.90); RDW 15.2 % (11.5-15.5); WBC 4.4 k/uL (3.8-10.6)
[2020-10-25 12:23] LABS: Glucose,Whole Blood 178 mg/dL (75-99)
[2020-10-25] MEDS: INSULIN ASPART (NovoLOG) 100 UNIT/ML VIAL SQ SCH ×3 (12:25→21:25)
--- NOTE | 2020-10-25 13:15 | P.PN ---
Subjective Progress Note Date: 10/25/20 HISTORY OF PRESENT ILLNESS: This is a 80-year-old male who was transferred from [facility] yesterday secondary to mild troponin elevation. Patient had originally presented there with a chief complaint of not feeling well. Patient examined this morning at the bedside. Patient remains confused although pleasant. He denies chest pain or pressure. He denies shortness of breath. Patient remains on IV Lasix 40 mg every 12 hours. Fluid balance over the last 24 hours is -1400 mL. Echocardiogram completed reveals ejection fraction 55-60%, mild aortic regurgitation, mild tricuspid regurgitation, and mild pulmonary hypertension. BUN 34. Creatinine 0.85. PHYSICAL EXAM: VITAL SIGNS: Reviewed. GENERAL: Well-developed in no acute distress. NECK: Supple. No JVD or thyromegaly LUNGS: Respirations even and unlabored. Lungs diminished bilaterally HEART: Irregular rate and rhythm. S1 and S2 heard. Systolic murmur noted. EXTREMITIES: Normal range of motion. No clubbing or cyanosis. Peripheral pulses intact. No lower extremity edema. Orthopedic boot noted to left foot. ASSESSMENT: Acute exacerbation of chronic diastolic heart failure, ejection fraction 55-60% Acute exacerbation of COPD Abnormal troponins, not indicative of acute coronary syndrome Chronic persistent atrial fibrillation History of sick sinus syndrome, status post permanent pacemaker insertion Dementia PLAN: Continue current cardiac medications Continue Xarelto for anticoagulation Discontinue Tambocor Continue IV Lasix 40 mg IV every 12 hours Monitor kidney function Daily weights Accurate I&O Further recommendations pending patient course Nurse practitioner note has been reviewed by physician. Signing provider agrees with the documented findings, assessment, and plan of care. Objective - Vital Signs Vital signs: Vital Signs Temp 96.5 F L 10/25/20 08:00 Pulse 76 10/25/20 12:30 Resp 16 10/25/20 06:14 BP 127/67 10/25/20 08:00 Pulse Ox 95 10/25/20 08:00 Intake & Output 10/24/20 10/25/20 10/25/20 18:59 06:59 18:59 Intake Total 100 Output Total 1400 Balance -1400 100 Weight 91.5 kg Intake: Oral 100 Output: Urine 1400 Other: Voiding Method Urinal Urinal Incontinent Incontinent # Voids 1 - Labs CBC & Chem 7: 10/25/20 10:17 10/25/20 10:17 Labs: Abnormal Lab Results - Last 24 Hours (Table) 10/24/20 10/24/20 10/25/20 Range/Units 20:21 20:30 06:21 Hgb (13.0-17.5) gm/dL Hct (39.0-53.0) % Lymphocytes # (1.0-4.8) k/uL Sodium (137-145) mmol/L Carbon Dioxide (22-30) mmol/L BUN (9-20) mg/dL Glucose (74-99) mg/dL POC Glucose (mg/dL) 206 H 140 H (75-99) mg/dL Calcium (8.4-10.2) mg/dL Troponin I 0.036 H* (0.000-0.034) ng/mL Total Protein (6.3-8.2) g/dL Albumin (3.5-5.0) g/dL 10/25/20 10/25/20 10/25/20 Range/Units 10:17 10:17 12:11 Hgb 12.7 L (13.0-17.5) gm/dL Hct 38.7 L (39.0-53.0) % Lymphocytes # 0.4 L (1.0-4.8) k/uL Sodium 135 L (137-145) mmol/L Carbon Dioxide 21 L (22-30) mmol/L BUN 34 H (9-20) mg/dL Glucose 148 H (74-99) mg/dL POC Glucose (mg/dL) 178 H (75-99) mg/dL Calcium 8.0 L (8.4-10.2) mg/dL Troponin I (0.000-0.034) ng/mL Total Protein 6.1 L (6.3-8.2) g/dL Albumin 3.0 L (3.5-5.0) g/dL
[2020-10-25] MEDS: FUROSEMIDE 10 MG/ML 4 ML VIAL IV SCH ×2 (13:32→22:22)
[2020-10-25] MEDS: HALOPERIDOL LACTATE 5 MG/ML 1 ML VIAL IM PRN ×2 (16:35→22:22)
[2020-10-25 16:49] LABS: Glucose,Whole Blood 134 mg/dL (75-99)
--- NOTE | 2020-10-25 17:33 | P.CNPUL ---
History of Present Illness Consult date: 10/25/20 Requesting physician: Hugh Naranjo Reason for consult: COPD Chief complaint: Weakness History of present illness: This is an 80-year-old white male, known history of dementia, hypertension, chronic atrial fibrillation, patient was admitted yesterday with chief complaint of generalized weakness, the patient himself is a very poor historian, could not get any information from the patient whatsoever. Apparently the admitting physician was concerned about possible COPD, patient had no physical findings suggest COPD on physical examination. His lungs sounded fairly clear. Chest x- ray showed small tiny pleural effusions which were present before. No evidence of fibrosis or no evidence of any significant pulmonary pathology. Patient was noted to have slightly elevated BNP of 4319, and cardiology was consulted. Pulmonary-mcgregor, I did not feel the patient had any significant symptoms to suggest COPD or COPD exacerbation patient was placed on bronchodilators, and Solu-Medrol, I would definitely discontinue the Solu-Medrol. And I would recommend updrafts only if needed. At this point patient sounded quite clear. Review of Systems ROS unobtainable: due to mental status (Patient is very confused, could not get any information from the patient whatsoever.) Past Medical History Past Medical History: Atrial Fibrillation, COPD, Dementia, Eye Disorder, Hyperlipidemia, Hypertension Additional Past Medical History / Comment(s): glaucoma, hx neuropathy, L sided facial droop. History of Any Multi-Drug Resistant Organisms: None Reported Past Surgical History: Back Surgery, Cholecystectomy, Hernia Repair, Orthopedic Surgery, Pacemaker Additional Past Surgical History / Comment(s): colonoscopy, surgery for pinched nerve in back, fractured left tibia/fibula, pacer. Past Anesthesia/Blood Transfusion Reactions: No Reported Reaction Type of Cardiac Device: Permanent Pacemaker Device Placement Date:: unknown Past Psychological History: No Psychological Hx Reported Smoking Status: Former smoker Past Alcohol Use History: None Reported Past Drug Use History: None Reported - Past Family History Mother Family Medical History: No Reported History Father Family Medical History: AICD/Pacemaker, Coronary Artery Disease (CAD), Respiratory Disorder Additional Family Medical History / Comment(s): Pacemaker Medications and Allergies Home Medications Medication Instructions Recorded Confirmed Type Furosemide [Lasix] 20 mg PO BID 09/04/15 10/24/20 History Rivaroxaban [Xarelto] 20 mg PO AC-SUPPER 09/04/15 10/24/20 History Atorvastatin Calcium [Lipitor] 20 mg PO [id number]@199908/08/20 10/24/20 History Flecainide Acetate [Tambocor] 100 mg PO BID 08/08/20 10/24/20 History Acetaminophen Tab [Tylenol] 650 mg PO QID 08/14/20 10/24/20 History Metoprolol Tartrate 25 mg PO BID 08/14/20 10/24/20 History Tamsulosin [Flomax] 0.4 mg PO HS 08/14/20 10/24/20 History Tiotropium 18 Mcg/Puff [Spiriva] 2 puff INHALATION RT-DAILY 08/14/20 10/24/20 History Levothyroxine Sodium 25 mcg PO DAILY 10/24/20 10/24/20 History [Levothyroxine] Timolol 0.5% Ophth Soln [Timoptic 1 drop BOTH EYES BID 10/24/20 10/24/20 History 0.5% Ophth Soln] risperiDONE 0.5 mg PO HS 10/24/20 10/24/20 History Allergies Allergy/AdvReac Type Severity Reaction Status Date / Time No Known Allergies Allergy Verified 10/23/20 23:44 Physical Exam Vitals: Vital Signs Temp Pulse Pulse Resp BP BP Pulse Ox 10/25/20 16:16 76 10/25/20 16:08 72 10/25/20 14:00 55 L 10/25/20 12:30 76 10/25/20 12:16 76 10/25/20 12:00 55 L 101/68 97 10/25/20 08:00 96.5 F L 88 127/67 95 10/25/20 07:30 64 10/25/20 07:19 64 10/25/20 06:14 16 95 10/25/20 04:00 69 16 92 L 10/25/20 00:00 62 16 119/75 97 10/24/20 20:00 97.6 F 92 17 132/66 100 10/24/20 18:31 97.9 F 78 16 130/82 99 Intake and Output 10/25/20 10/25/20 10/25/20 06:59 14:59 22:59 Intake Total 340 Output Total 700 Balance -700 340 Intake: Oral 340 Output: Urine 700 Other: Voiding Method Urinal Urinal Incontinent Incontinent # Voids 1 Weight 91.5 kg 91.5 kg Physical Exam: Revealed 80-year-old white male in no distress, confused, asking me to give him the keys throughout my whole examination of the patient Head: Atraumatic, normocephalic. HEENT:[Neck is supple.] [No neck masses.] [No thyromegaly.] [No JVD.] Chest: [Clear throughout, no crackles, no rhonchi, no wheezes.] Symmetrical chest expansion. Cardiac Exam: Irregular irregular rhythm. [Normal S1 and S2, no S3 gallop, 2/6 systolic murmur thought the precordium. Abdomen: [Soft, nontender, no megaly, no rebound, no guarding, normal bowel sounds.] Extremities: [No clubbing, no edema, no cyanosis.] Neurological Exam: Alert, but confused, and disoriented. Results - Laboratory Findings CBC and BMP: 10/25/20 10:17 10/25/20 10:17 PT/INR, D-dimer PT 14.6 sec (9.0-12.0) H 10/24/20 08:56 INR 1.4 (<1.2) H 10/24/20 08:56 Abnormal lab findings: Abnormal Labs 10/24/20 10/24/20 10/24/20 08:56 08:56 08:56 Hgb 12.3 L Hct 37.2 L Lymphocytes # 0.5 L PT 14.6 H INR 1.4 H Sodium Chloride 108 H Carbon Dioxide BUN 26 H Glucose 127 H POC Glucose (mg/dL) Calcium 8.1 L Total Bilirubin 1.8 H Alkaline Phosphatase 152 H Troponin I Total Protein 5.9 L Albumin 2.7 L 10/24/20 10/24/20 10/24/20 08:56 20:21 20:30 Hgb Hct Lymphocytes # PT INR Sodium Chloride Carbon Dioxide BUN Glucose POC Glucose (mg/dL) 206 H Calcium Total Bilirubin Alkaline Phosphatase Troponin I 0.100 H* 0.036 H* Total Protein Albumin 10/25/20 10/25/20 10/25/20 06:21 10:17 10:17 Hgb 12.7 L Hct 38.7 L Lymphocytes # 0.4 L PT INR Sodium 135 L Chloride Carbon Dioxide 21 L BUN 34 H Glucose 148 H POC Glucose (mg/dL) 140 H Calcium 8.0 L Total Bilirubin Alkaline Phosphatase Troponin I Total Protein 6.1 L Albumin 3.0 L 10/25/20 10/25/20 12:11 16:48 Hgb Hct Lymphocytes # PT INR Sodium Chloride Carbon Dioxide BUN Glucose POC Glucose (mg/dL) 178 H 134 H Calcium Total Bilirubin Alkaline Phosphatase Troponin I Total Protein Albumin - Diagnostic Findings Chest x-ray: image reviewed (Evidence of active disease noted.) Assessment and Plan Assessment: Impression: Generalized weakness, being addressed by the admitting physician Dementia Possible underlying COPD but presently inactive. History of sick sinus syndrome and previous pacemaker implantation. Chronic atrial fibrillation. Recommendation: Continue present treatment plan as per the admitting physician Continue cardiac meds Discontinue Solu-Medrol. Use DuoNeb updrafts only as needed. Will sign off and see the patient on when necessary basis. Time with Patient: Greater than 30
[2020-10-25] MEDS: RIVAROXABAN 20 MG TAB PO SCH (17:54)
[2020-10-25] MEDS: risperiDONE 0.5 MG TAB PO SCH (19:34)
[2020-10-25] MEDS: ATORVASTATIN 20 MG TAB PO SCH (19:34)
[2020-10-25] MEDS: TAMSULOSIN 0.4 MG CAP.ER.24H PO SCH (19:36)
[2020-10-26] MEDS: ACETAMINOPHEN TAB 325 MG TAB PO SCH ×4 (05:38→23:10)
[2020-10-26] MEDS: LEVOTHYROXINE 25 MCG TAB PO SCH (05:38)
[2020-10-26] MEDS: FAMOTIDINE 20 MG TAB PO SCH (08:14)
[2020-10-26] MEDS: IPRATROPIUM-ALBUTEROL 3 ML NEB INHALATION PRN ×2 (08:43→12:10)
[2020-10-26] MEDS: IPRATROPIUM 0.5 MG/2.5 ML NEBU INHALATION SCH ×4 (08:44→20:06)
[2020-10-26] MEDS: METOPROLOL TARTRATE 25 MG TAB PO SCH ×2 (09:27→19:33)
[2020-10-26 09:48] LABS: Basophils % (A) 0 %; Eosinophils % (A) 0 %; HCT 41.5 % (39.0-53.0); HGB 13.5 gm/dL (13.0-17.5); Hypochromasia Slight; Lymphocytes # (A) 0.5 k/uL (1.0-4.8); Lymphocytes % (A) 4 %; MCHC 32.6 g/dL (31.0-37.0); MCV 85.9 fL (80.0-100.0); Mean Platelet Volume 7.3; Monocytes # (A) 0.7 k/uL (0-1.0); Monocytes % (A) 6 %; Neutrophils # (A) 10.4 k/uL (1.3-7.7); Neutrophils % (A) 89 %; Platelet Count 188 k/uL (150-450); RBC 4.83 m/uL (4.30-5.90); RDW 15.1 % (11.5-15.5); WBC 11.7 k/uL (3.8-10.6)
[2020-10-26 09:58] LABS: Albumin 3.3 g/dL (3.5-5.0); Calcium 8.7 mg/dL (8.4-10.2); Potassium 3.2 mmol/L (3.5-5.1); Total Bilirubin 0.8 mg/dL (0.2-1.3); Total Protein 6.7 g/dL (6.3-8.2)
[2020-10-26] MEDS ORDERED: POTASSIUM CHLORIDE ER 20 MEQ TAB.ER PO STA (11:30)
[2020-10-26] MEDS: TIMOLOL 0.5% OPHTH DROPS 5 ML BTL BOTH EYES SCH ×2 (12:00→19:34)
--- NOTE | 2020-10-26 13:20 | P.PN ---
Subjective Progress Note Date: 10/26/20 HISTORY OF PRESENT ILLNESS: 10/25/2020 This is a 80-year-old male who was transferred from [facility] yesterday secondary to mild troponin elevation. Patient had originally presented there with a chief complaint of not feeling well. Patient examined this morning at the bedside. Patient remains confused although pleasant. He denies chest pain or pressure. He denies shortness of breath. Patient remains on IV Lasix 40 mg every 12 hours. Fluid balance over the last 24 hours is -1400 mL. Echocardiogram completed reveals ejection fraction 55-60%, mild aortic regurgitation, mild tricuspid regurgitation, and mild pulmonary hypertension. BUN 34. Creatinine 0.85. 10/26/2020 Patient examined this morning at the bedside. Patient remains confused this morning. He denies chest pain or pressure. He denies shortness of breath. He remains on IV Lasix. Intake and output for the last 24 hours is not accurate as patient has been incontinent. Potassium 3.2. BUN 41. Creatinine 0.94. PHYSICAL EXAM: VITAL SIGNS: Reviewed. GENERAL: Well-developed in no acute distress. NECK: Supple. No JVD or thyromegaly LUNGS: Respirations even and unlabored. Lungs diminished bilaterally with a few scattered rhonchi noted. HEART: Irregular rate and rhythm. S1 and S2 heard. Systolic murmur noted. EXTREMITIES: Normal range of motion. No clubbing or cyanosis. Peripheral pulses intact. No lower extremity edema. Orthopedic boot noted to left foot. ASSESSMENT: Acute exacerbation of chronic diastolic heart failure, ejection fraction 55-60% Acute exacerbation of COPD Abnormal troponins, not indicative of acute coronary syndrome Chronic persistent atrial fibrillation History of sick sinus syndrome, status post permanent pacemaker insertion Dementia Hypokalemia PLAN: Continue current cardiac medications Continue Xarelto for anticoagulation Continue to hold Tambocor Continue IV Lasix 40 mg IV every 12 hours. Likely transition to oral dosing tomorrow Monitor kidney function Daily weights Accurate I&O Replace potassium Further recommendations pending patient course Nurse practitioner note has been reviewed by physician. Signing provider agrees with the documented findings, assessment, and plan of care. Objective - Vital Signs Vital signs: Vital Signs Temp 97 F L 10/26/20 08:00 Pulse 86 10/26/20 12:20 Resp 18 10/26/20 08:00 BP 125/63 10/26/20 08:00 Pulse Ox 98 10/26/20 08:00 Intake & Output 10/25/20 10/26/20 10/26/20 18:59 06:59 18:59 Intake Total 580 780 Output Total 450 Balance 130 780 Weight 91.5 kg 80.5 kg Intake: Oral 580 780 Output: Urine 450 Other: Voiding Method Urinal Urinal Urinal Incontinent Incontinent Incontinent # Voids 1 2 - Labs CBC & Chem 7: 10/26/20 08:16 10/26/20 08:16 Labs: Abnormal Lab Results - Last 24 Hours (Table) 10/25/20 10/26/20 10/26/20 Range/Units 16:48 08:16 08:16 WBC 11.7 H (3.8-10.6) k/uL Neutrophils # 10.4 H (1.3-7.7) k/uL Lymphocytes # 0.5 L (1.0-4.8) k/uL Sodium 135 L (137-145) mmol/L Potassium 3.2 L (3.5-5.1) mmol/L BUN 41 H (9-20) mg/dL Glucose 130 H (74-99) mg/dL POC Glucose (mg/dL) 134 H (75-99) mg/dL Alkaline Phosphatase 143 H (38-126) U/L Albumin 3.3 L (3.5-5.0) g/dL
[2020-10-26] MEDS: FUROSEMIDE 10 MG/ML 4 ML VIAL IV SCH (13:41)
[2020-10-26] MEDS: RIVAROXABAN 20 MG TAB PO SCH (17:01)
[2020-10-26] MEDS: TAMSULOSIN 0.4 MG CAP.ER.24H PO SCH (19:33)
[2020-10-26] MEDS: ATORVASTATIN 20 MG TAB PO SCH (19:33)
[2020-10-26] MEDS: risperiDONE 0.5 MG TAB PO SCH (19:33)
[2020-10-26] MEDS: FUROSEMIDE 40 MG TAB PO SCH (19:33)
[2020-10-26] MEDS: HALOPERIDOL LACTATE 5 MG/ML 1 ML VIAL IM PRN (22:26)
[2020-10-27] MEDS: ACETAMINOPHEN TAB 325 MG TAB PO SCH ×3 (06:18→22:35)
[2020-10-27] MEDS: LEVOTHYROXINE 25 MCG TAB PO SCH (06:18)
[2020-10-27 07:44] LABS: Calcium 8.3 mg/dL (8.4-10.2)
[2020-10-27] MEDS ORDERED: Potassium Replacement Protocol 1 EACH MISC MISCELLANE PRN ×2 (07:48→15:09)
[2020-10-27] MEDS: POTASSIUM CHLORIDE ER 20 MEQ TAB.ER PO SCH ×4 (08:06→16:12)
[2020-10-27] MEDS: FUROSEMIDE 40 MG TAB PO SCH ×2 (08:06→17:07)
[2020-10-27] MEDS: TIMOLOL 0.5% OPHTH DROPS 5 ML BTL BOTH EYES SCH ×2 (08:06→22:36)
[2020-10-27] MEDS: FAMOTIDINE 20 MG TAB PO SCH (08:06)
[2020-10-27] MEDS: METOPROLOL TARTRATE 25 MG TAB PO SCH ×2 (08:06→22:35)
[2020-10-27] MEDS: IPRATROPIUM 0.5 MG/2.5 ML NEBU INHALATION SCH ×4 (08:51→20:11)
[2020-10-27] MEDS: IPRATROPIUM-ALBUTEROL 3 ML NEB INHALATION PRN ×3 (08:51→20:11)
--- NOTE | 2020-10-27 12:14 | P.PN ---
Subjective Progress Note Date: 10/27/20 HISTORY OF PRESENT ILLNESS: 10/25/2020 This is a 80-year-old male who was transferred from [facility] yesterday secondary to mild troponin elevation. Patient had originally presented there with a chief complaint of not feeling well. Patient examined this morning at the bedside. Patient remains confused although pleasant. He denies chest pain or pressure. He denies shortness of breath. Patient remains on IV Lasix 40 mg every 12 hours. Fluid balance over the last 24 hours is -1400 mL. Echocardiogram completed reveals ejection fraction 55-60%, mild aortic regurgitation, mild tricuspid regurgitation, and mild pulmonary hypertension. BUN 34. Creatinine 0.85. 10/26/2020 Patient examined this morning at the bedside. Patient remains confused this morning. He denies chest pain or pressure. He denies shortness of breath. He remains on IV Lasix. Intake and output for the last 24 hours is not accurate as patient has been incontinent. Potassium 3.2. BUN 41. Creatinine 0.94. 10/27/2020 Patient appears more lethargic today. Nursing states they spoke with patient's who made the patient a DO NOT RESUSCITATE. Blood pressure 110/67. Heart rate in the 80s. Patient was transitioned to oral Lasix yesterday per internal medicine. PHYSICAL EXAM: VITAL SIGNS: Reviewed. GENERAL: Well-developed in no acute distress. NECK: Supple. No JVD or thyromegaly LUNGS: Respirations even and unlabored. Lungs diminished bilaterally with a few scattered rhonchi noted. HEART: Irregular rate and rhythm. S1 and S2 heard. Systolic murmur noted. EXTREMITIES: Normal range of motion. No clubbing or cyanosis. Peripheral pulses intact. No lower extremity edema. Orthopedic boot noted to left foot. ASSESSMENT: Acute exacerbation of chronic diastolic heart failure, ejection fraction 55-60% Acute exacerbation of COPD Abnormal troponins, not indicative of acute coronary syndrome Chronic persistent atrial fibrillation History of sick sinus syndrome, status post permanent pacemaker insertion Dementia Hypokalemia PLAN: Continue current cardiac medications Continue Xarelto for anticoagulation Continue to hold Tambocor Continue oral Lasix Monitor kidney function Daily weights Accurate I&O Replace potassium Further recommendations pending patient course Nurse practitioner note has been reviewed by physician. Signing provider agrees with the documented findings, assessment, and plan of care. Objective - Vital Signs Vital signs: Vital Signs Temp 98.3 F 10/27/20 11:54 Pulse 83 10/27/20 11:54 Resp 18 10/27/20 11:54 BP 110/67 10/27/20 11:54 Pulse Ox 96 10/27/20 11:54 Intake & Output 10/26/20 10/27/20 10/27/20 18:59 06:59 18:59 Intake Total 1020 240 Balance 1020 240 Weight 79 kg Intake: Oral 1020 240 Other: Voiding Method Urinal Urinal Urinal Incontinent Incontinent Incontinent # Voids 2 1 - Labs CBC & Chem 7: 10/26/20 08:16 10/27/20 07:03 Labs: Abnormal Lab Results - Last 24 Hours (Table) 10/27/20 Range/Units 07:03 Potassium 3.0 L (3.5-5.1) mmol/L BUN 38 H (9-20) mg/dL Calcium 8.3 L (8.4-10.2) mg/dL
[2020-10-27] MEDS ORDERED: Magnesium Replacement Protocol 1 EACH MISC MISCELLANE PRN (15:09)
--- NOTE | 2020-10-27 16:02 | PN ---
PROGRESS NOTE DATE OF SERVICE: 10/27/2020 I am covering for Dr. Naranjo. This 80-year-old gentleman, admitted with shortness of breath, generalized weakness and elevated troponin also. The patient is confused today, multiple consultants are following the patient including Pulmonary and Cardiology and Dr. Royal thought that the patient has some dementia without much of a COPD acute exacerbation. Most recent chest x-ray which was reviewed personally by me showed bilateral lesions. A 2D echo with Doppler showed ejection fraction 55-60 percent. Cardiology recommended anticoagulation and as well as to hold Tambocor. The patient being closely monitored. PAST MEDICAL HISTORY: Reviewed. REVIEW OF SYMPTOMS: Could not be taken. CURRENT MEDICATIONS: Reviewed and include: DuoNeb, Pepcid, Lasix, Haldol, Atrovent, Lopressor, doses reviewed. PHYSICAL EXAM: Patient is stuporous, restless, confused. Pulse 83, blood pressure 110/69. Respirations 18, temperature 98.2, pulse ox 98% on 2 L, 95% on 10% 10 L high-flow O2. HEENT: Conjunctivae normal. NECK: No JVD. CARDIOVASCULAR: S1, S2 muffled. RESPIRATORY: Breath sounds diminished in the bases. A few scattered rhonchi and crackles. ABDOMEN: Soft, nontender. LEGS are no edema. No swelling. NERVOUS SYSTEM: No focal deficits. LABS: WBC 11.7, sodium 130. Potassium 3.2, BUN is 41. Otherwise, alkaline phosphatase 143. ASSESSMENT: 1. Shortness of breath possibly multifactorial with congestive heart failure acute exacerbation, acute on chronic diastolic dysfunction, ejection fraction 60% to 65%. 2. Possible chronic obstructive pulmonary disease acute exacerbation. 3. Generalized weakness. 4. Confusion possibly acute metabolic encephalopathy multifactorial. 5. Acute hypoxic respiratory failure. 6. Abnormal troponins, not indicative of acute coronary syndrome per cardiology. 7. Chronic persistent atrial fibrillation. 8. History of sick sinus syndrome and permanent pacemaker implantation. 9. Dementia. 10.Hyponatremia. 11.Hypokalemia. 12.Increased WBC. RECOMMENDATION AND DISCUSSION: In this 80-year-old gentleman who presented with multiple complex medical issues, we will monitor the patient closely, continue the current medications, management and symptomatic treatment. Otherwise, at this time, I recommend continue the bronchodilators. Continue with p.o. diuretics. I would also recommend continue with Risperdal and the rest of medications. The prognosis extremely guarded because of multiple complex medical issues. Further recommendations to follow. Discussed at length with the family. MMODL / IJN: [id number] /
[2020-10-27] MEDS ORDERED: HALOPERIDOL LACTATE 5 MG/ML 1 ML VIAL IM PRN (16:12)
[2020-10-27] MEDS: RIVAROXABAN 20 MG TAB PO SCH (17:08)
[2020-10-27 17:35] LABS: Appearance,Urine Cloudy (Clear); Bacteria,Urine Many /hpf; Bilirubin,Urine Negative (Negative); Blood,Urine Large (Negative); Color,Urine Yellow; Glucose,Urine (UA) Negative (Negative); Ketones,Urine Negative (Negative); Leukocyte Esterase,Urine Large (Negative); Mucus,Urine Rare /hpf; Nitrite,Urine Negative (Negative); Protein,Urine 1+ (Negative); RBC,Urine >182 /hpf (0-5); Specific Gravity,Urine 1.011 (1.001-1.035); Urobilinogen,Urine <2.0 mg/dL (<2.0); WBC,Urine 77 /hpf (0-5)
[2020-10-27] MEDS: ATORVASTATIN 20 MG TAB PO SCH (22:35)
[2020-10-27] MEDS: risperiDONE 0.25 MG TAB PO SCH (22:36)
[2020-10-27] MEDS: TAMSULOSIN 0.4 MG CAP.ER.24H PO SCH (22:36)
[2020-10-28] MEDS: ACETAMINOPHEN TAB 325 MG TAB PO SCH ×3 (00:05→12:23)
--- NOTE | 2020-10-28 05:26 | P.PN ---
Subjective Progress Note Date: 10/26/20 Bladimir March, is an 80 year old male, patient of Dr Jaimes who presented to [facility] with a chief complaint of generalized weakness, he was evaluated in the emergency room vital examination on presentation revealed a temperature of 98.8 pulse 75 respiration 18 blood pressure 122/73 pulse ox 97% on room air his white blood count was 6.6 hemoglobin 12.3 platelet count 162 INR was 1.4 sodium 137 potassium 3.7 chloride 108 BUN 26 creatinine 1.03 glucose 127 total bilirubin 1.8 troponin level was 0.1 BNP was 4319 and TSH 1.41 patient was admitted to telemetry floor cardiology consultation was requested. His past medical history is significant for history of persistent atrial fibrillation, history of hypertension, history of hyperlipidemia, history of pacemaker placement, history of dementia, history of pulmonary fibrosis, and history of hypothyroidism 10/25/2020 patient resting comfortably in bed. Reports improvement with shortness of breath. Remains on IV steroids and IV Lasix. 2-D echo completedshowing EF of 55% to 60%. At this time patient denies chest pain. Patient denies denies vomiting and diarrhea. Patient denies any urinary burning or frequency. Pulmonary and cardiology services consulted 10/26/2020 patient resting comfortably in bed. Reports improvement with shortness of breath. Remains on IV steroids and IV Lasix. 2-D echo completedshowing EF of 55% to 60%. At this time patient denies chest pain. Patient denies denies vomiting and diarrhea. Patient denies any urinary burning or frequency. Pulmonary and cardiology services consulted Objective - Vital Signs Vital signs: Vital Signs Temp 97 F L 10/26/20 08:00 Pulse 80 10/26/20 08:57 Resp 18 10/26/20 08:00 BP 125/63 10/26/20 08:00 Pulse Ox 98 10/26/20 08:00 Intake & Output 10/25/20 10/26/20 10/26/20 18:59 06:59 18:59 Intake Total 580 780 Output Total 450 Balance 130 780 Weight 91.5 kg 80.5 kg Intake: Oral 580 780 Output: Urine 450 Other: Voiding Method Urinal Urinal Incontinent Incontinent # Voids 1 - Exam In general patient is alert and oriented 3 in no apparent distress HEENT head normocephalic and atraumatic Neck is supple no JVD no goiter no lymphadenopathy Chest exam reveals a few scattered crackles no wheezing Cardiac exam reveals regular heart sounds S1 and S2 no gallops no murmurs Abdomen is soft nontender no organomegaly with normal bowel sounds Extremity exam reveals no edema no cyanosis or clubbing Neurological examination reveals no gross focal deficit - Labs CBC & Chem 7: 10/26/20 08:16 10/26/20 08:16 Labs: Abnormal Lab Results - Last 24 Hours (Table) 10/25/20 10/25/20 10/25/20 Range/Units 10:17 10:17 12:11 WBC (3.8-10.6) k/uL Hgb 12.7 L (13.0-17.5) gm/dL Hct 38.7 L (39.0-53.0) % Neutrophils # (1.3-7.7) k/uL Lymphocytes # 0.4 L (1.0-4.8) k/uL Sodium 135 L (137-145) mmol/L Potassium (3.5-5.1) mmol/L Carbon Dioxide 21 L (22-30) mmol/L BUN 34 H (9-20) mg/dL Glucose 148 H (74-99) mg/dL POC Glucose (mg/dL) 178 H (75-99) mg/dL Calcium 8.0 L (8.4-10.2) mg/dL Alkaline Phosphatase (38-126) U/L Total Protein 6.1 L (6.3-8.2) g/dL Albumin 3.0 L (3.5-5.0) g/dL 10/25/20 10/26/20 10/26/20 Range/Units 16:48 08:16 08:16 WBC 11.7 H (3.8-10.6) k/uL Hgb (13.0-17.5) gm/dL Hct (39.0-53.0) % Neutrophils # 10.4 H (1.3-7.7) k/uL Lymphocytes # 0.5 L (1.0-4.8) k/uL Sodium 135 L (137-145) mmol/L Potassium 3.2 L (3.5-5.1) mmol/L Carbon Dioxide (22-30) mmol/L BUN 41 H (9-20) mg/dL Glucose 130 H (74-99) mg/dL POC Glucose (mg/dL) 134 H (75-99) mg/dL Calcium (8.4-10.2) mg/dL Alkaline Phosphatase 143 H (38-126) U/L Total Protein (6.3-8.2) g/dL Albumin 3.3 L (3.5-5.0) g/dL Assessment and Plan Plan: Generalized weakness Elevated troponin level, rule out acute myocardial infarction COPD exacerbation. Chest x-ray negative. Maintained on IV steroids. Pulmonary services consulted Underlying history of atrial fibrillation Underlying history of hypertension Underlying history of hypothyroidism Underlying history of hyperlipidemia History of sick sinus syndrome status post permanent pacemaker History of dementia DVT prophylaxis Xarelto GI prophylaxis Pepcid Cardiology and pulmonary services consulted IV Lasix and IV steroids
[2020-10-28] MEDS: LEVOTHYROXINE 25 MCG TAB PO SCH (06:28)
[2020-10-28] MEDS: IPRATROPIUM 0.5 MG/2.5 ML NEBU INHALATION SCH ×4 (07:35→20:17)
[2020-10-28 09:08] LABS: Calcium 8.7 mg/dL (8.4-10.2)
[2020-10-28 09:23] LABS: Magnesium 2.3 mg/dL (1.6-2.3); Potassium 3.9 mmol/L (3.5-5.1)
[2020-10-28 09:30] LABS: Basophils # (A) 0.1 k/uL (0-0.2); Basophils % (A) 1 %; Eosinophils % (A) 0 %; HCT 45.7 % (39.0-53.0); HGB 14.6 gm/dL (13.0-17.5); Hypochromasia Moderate; Lymphocytes # (A) 0.5 k/uL (1.0-4.8); Lymphocytes % (A) 4 %; MCH 28.5 pg (25.0-35.0); MCHC 32.1 g/dL (31.0-37.0); Mean Platelet Volume 8.8; Monocytes # (A) 0.5 k/uL (0-1.0); Monocytes % (A) 4 %; Neutrophils # (A) 9.6 k/uL (1.3-7.7); Neutrophils % (A) 89 %; Platelet Count 119 k/uL (150-450); RBC 5.13 m/uL (4.30-5.90); RDW 15.5 % (11.5-15.5); WBC 10.7 k/uL (3.8-10.6)
[2020-10-28] MEDS: METOPROLOL TARTRATE 25 MG TAB PO SCH (09:49)
[2020-10-28] MEDS: FUROSEMIDE 40 MG TAB PO SCH (09:49)
[2020-10-28] MEDS: TIMOLOL 0.5% OPHTH DROPS 5 ML BTL BOTH EYES SCH ×2 (09:50→21:36)
[2020-10-28] MEDS: THIAMINE 100 MG TAB PO SCH (11:04)
[2020-10-28] MEDS: MULTIVITAMINS, THERA 1 EACH TAB PO SCH (11:04)
[2020-10-28] MEDS: FOLIC ACID 1 MG TAB PO SCH (11:04)
--- NOTE | 2020-10-28 14:35 | P.PN ---
Subjective This is a 80-year-old male who was transferred from [facility] on 10/24/2020 secondary to mild troponin elevation. Patient had originally presented there with a chief complaint of not feeling well. Patient examined this morning at the bedside. Patient remains confused although pleasant. He denies chest pain or pressure. He denies shortness of breath. Patient remains on IV Lasix 40 mg every 12 hours. Fluid balance over the last 24 hours is -1400 mL. Echocardiogram completed reveals ejection fraction 55-60%, mild aortic regurgitation, mild tricuspid regurgitation, and mild pulmonary hypertension. BUN 34. Creatinine 0.85. 10/27/2020 Patient increasingly more lethargic. Per nursing they spoke with patient's who made the patient a DO NOT RESUSCITATE. Patient was transitioned to oral Lasix 10/26/20 per internal medicine. 10/28/2020: Patient very lethargic today. Unable to answer questions. BP 129/81 HR 104, maintaining saturations on 2 L nasal cannula. Patient is currently being maintained on Lasix 40 mg daily, metoprolol titrate 25 mg twice a day, Xarelto 20 mg nightly. Laboratory data reviewed, WBC 10.7, hemoglobin 14.6, platelets 19, sodium 137, potassium 3.9, serum creatinine 1.20 PHYSICAL EXAM: VITAL SIGNS: Reviewed. GENERAL: Well-developed in no acute distress. NECK: Supple. No JVD or thyromegaly LUNGS: Respirations even and unlabored. Lungs diminished bilaterally with a few scattered rhonchi noted. HEART: Irregular rate and rhythm. S1 and S2 heard. Systolic murmur noted. EXTREMITIES: Normal range of motion. No clubbing or cyanosis. Peripheral pulses intact. No lower extremity edema. Orthopedic boot noted to left foot. ASSESSMENT: Acute exacerbation of chronic diastolic heart failure, ejection fraction 55-60% Acute exacerbation of COPD Abnormal troponins, not indicative of acute coronary syndrome Chronic persistent atrial fibrillation History of sick sinus syndrome, status post permanent pacemaker insertion Dementia Hypokalemia PLAN: Continue current cardiac medications Continue Xarelto for anticoagulation Continue oral Lasix Monitor kidney function Continue to monitor electrolytes, replace as needed No further changes or cardiac workup from cardiology standpoint We will sign off at this time and follow as needed. Please reach out with any further questions or concerns. Nurse practitioner note has been reviewed by physician. Signing provider agrees with the documented findings, assessment, and plan of care. Objective - Vital Signs Vital signs: Vital Signs Temp 98.9 F 10/28/20 12:09 Pulse 104 H 10/28/20 13:41 Resp 18 10/28/20 13:41 BP 121/69 10/28/20 12:09 Pulse Ox 96 10/28/20 12:09 Intake & Output 10/27/20 10/28/20 10/28/20 18:59 06:59 18:59 Intake Total 0 Balance 0 Weight 75 kg Intake: Oral 0 Other: Voiding Method Urinal Urinal Urinal Incontinent Incontinent Incontinent # Voids 1 - Labs CBC & Chem 7: 10/28/20 08:03 10/28/20 08:03 Labs: Abnormal Lab Results - Last 24 Hours (Table) 10/27/20 10/28/20 10/28/20 Range/Units 17:13 08:03 08:03 WBC 10.7 H (3.8-10.6) k/uL Plt Count 119 L (150-450) k/uL Neutrophils # 9.6 H (1.3-7.7) k/uL Lymphocytes # 0.5 L (1.0-4.8) k/uL Sodium 147 H (137-145) mmol/L Chloride 116 H (98-107) mmol/L Carbon Dioxide 17 L (22-30) mmol/L BUN 38 H (9-20) mg/dL Glucose 104 H (74-99) mg/dL Urine Protein 1+ H (Negative) Urine Blood Large H (Negative) Ur Leukocyte Esterase Large H (Negative) Urine RBC >182 H (0-5) /hpf Urine WBC 77 H (0-5) /hpf Urine WBC Clumps Moderate H (None) /hpf Urine Bacteria Many H (None) /hpf Urine Mucus Rare H (None) /hpf Microbiology - Last 24 Hours (Table) 10/27/20 15:27 Blood Culture Gram Stain - Preliminary Blood 10/27/20 15:27 Blood Culture - Final Blood 10/27/20 17:13 Urine Culture - Preliminary Urine,Catheterized
[2020-10-28] MEDS: RIVAROXABAN 20 MG TAB PO SCH (16:31)
[2020-10-29] MEDS: ACETAMINOPHEN TAB 325 MG TAB PO SCH ×6 (02:16→21:06)
[2020-10-29] MEDS: METOPROLOL TARTRATE 25 MG TAB PO SCH ×3 (02:17→21:04)
[2020-10-29] MEDS: risperiDONE 0.25 MG TAB PO SCH ×2 (02:17→21:04)
[2020-10-29] MEDS: TAMSULOSIN 0.4 MG CAP.ER.24H PO SCH ×2 (02:17→21:04)
[2020-10-29] MEDS: ATORVASTATIN 20 MG TAB PO SCH ×2 (02:17→21:04)
[2020-10-29] MEDS: LEVOTHYROXINE 25 MCG TAB PO SCH (05:53)
[2020-10-29] MEDS: IPRATROPIUM 0.5 MG/2.5 ML NEBU INHALATION SCH ×4 (07:55→19:58)
[2020-10-29] MEDS: TIMOLOL 0.5% OPHTH DROPS 5 ML BTL BOTH EYES SCH ×2 (08:36→21:05)
[2020-10-29 09:23] LABS: Calcium 8.3 mg/dL (8.4-10.2)
[2020-10-29 09:33] LABS: Basophils % (A) 0 %; Eosinophils # (A) 0.1 k/uL (0-0.7); Eosinophils % (A) 1 %; HGB 13.4 gm/dL (13.0-17.5); Hypochromasia Slight; Lymphocytes # (A) 0.9 k/uL (1.0-4.8); Lymphocytes % (A) 11 %; MCH 27.7 pg (25.0-35.0); MCHC 31.9 g/dL (31.0-37.0); Mean Platelet Volume 7.5; Monocytes # (A) 0.5 k/uL (0-1.0); Monocytes % (A) 6 %; Neutrophils # (A) 6.4 k/uL (1.3-7.7); Neutrophils % (A) 80 %; RBC 4.83 m/uL (4.30-5.90); RDW 15.4 % (11.5-15.5); WBC 8.1 k/uL (3.8-10.6)
[2020-10-29 09:42] LABS: Potassium 3.3 mmol/L (3.5-5.1)
[2020-10-29] MEDS ORDERED: Potassium Replacement Protocol 1 EACH MISC MISCELLANE PRN (09:54)
[2020-10-29 09:57] LABS: Platelet Count 191 k/uL (150-450)
[2020-10-29] MEDS: POTASSIUM CHLORIDE 10 MEQ in WATER FOR INJECTION 1 100ML.BAG IVPB SCH ×4 (10:35→17:35)
[2020-10-29] MEDS: FUROSEMIDE 40 MG TAB PO SCH (10:53)
[2020-10-29] MEDS: FOLIC ACID 1 MG TAB PO SCH (10:54)
[2020-10-29] MEDS: MULTIVITAMINS, THERA 1 EACH TAB PO SCH (13:12)
[2020-10-29] MEDS: THIAMINE 100 MG TAB PO SCH (13:12)
--- NOTE | 2020-10-29 16:15 | CT ---
EXAMINATION TYPE: CT brain wo con DATE OF EXAM: 10/29/2020 COMPARISON: 08/14/2020 HISTORY: Patient poor historian and has difficulty following instructions CT DLP: 2048.[address] of the brain was performed. The ventricles, basal cisterns and sulci overlying the cerebral convexities demonstrate mild enlargem ent. There is no evidence for intracranial hemorrhage or sulcal effacement. There is decreased attenuation about the periventricular white matter and deep white matter of both c erebral hemispheres, compatible with chronic small vessel ischemia. Differential diagnosis does inclu de demyelination. No mass effects are seen.No midline shift. Osseous calvarium is intact. If symptoms persist consider MRI. IMPRESSION: 1. Age related atrophic and chronic small vessel ischemic change without acute intracranial process s een at this time.
[2020-10-29] MEDS: NYSTATIN 100,000 UNIT/ML SUSP 500,000 UNIT/5 ML CUP PO SCH ×3 (16:25→21:04)
--- NOTE | 2020-10-29 16:30 | XR ---
EXAMINATION TYPE: XR chest 1V portable DATE OF EXAM: 10/29/2020 HISTORY: Shortness of breath. COMPARISON: 10/24/2020 TECHNIQUE: Single view of the chest is submitted. FINDINGS: There is now complete opacification right hemithorax. Patchy density left lower lobe noted. The heart is stable. Hilar and mediastinal structures are within normal limits. Degenerative changes are seen of the dorsal spine. IMPRESSION: 1. There is now complete opacification right hemithorax. Patchy density left lower lobe noted.
--- NOTE | 2020-10-29 16:45 | PN ---
PROGRESS NOTE I am covering Jose A. DATE OF SERVICE: 10/29/2020 This 80-year-old gentleman, admitted with shortness of breath, CHF, acute exacerbation, also had COPD, acute exacerbation, and generalized weakness. The patient had change in mental status also. Oral intake appears to be poor. The patient is not a candidate for TPN at this time, per Dietary. Appetite stimulants were recommended. Patient is being closely monitored. Past medical history reviewed. Review of systems could not be taken. CURRENT MEDICATIONS: Reviewed. They include Tylenol, DuoNeb, Rocephin, folic acid, Synthroid. Doses are reviewed. PHYSICAL EXAMINATION: Patient is conscious, confused. Pulse 98, blood pressure 139/85, respiration 19, temperature 99.1, pulse ox 92% on 2 L. HEENT: Conjunctivae normal. NECK: No jugular venous distention. CARDIOVASCULAR SYSTEM: S1, S2 muffled. RESPIRATORY SYSTEM: Breath sounds diminished at the bases. A few scattered rhonchi. ABDOMEN: Soft, non-tender. NERVOUS SYSTEM: Diffusely weak. LABS: Sodium 149, potassium 3.3. UA noted. ASSESSMENT: 1. Shortness of breath, possibly multifactorial, with congestive heart failure, acute exacerbation, with acute on chronic diastolic dysfunction, ejection fraction 60% to 65%. 2. Chronic obstructive pulmonary disease, acute exacerbation. 3. Generalized weakness. 4. Confusion, possibly acute metabolic encephalopathy, multifactorial. 5. Possible acute hypoxic respiratory failure, present on admission. Abnormal troponins not indicative of acute coronary syndrome per Cardiology. 6. Chronic persistent atrial fibrillation. 7. History of sick sinus syndrome and permanent pacemaker implantation. 8. Underlying dementia. 9. Hypernatremia. 10.Hypokalemia. 11.Increased white count. 12.NO CODE, NO CPR, NO VENT. RECOMMENDATIONS AND DISCUSSION: I recommend to continue current medications, continue with the monitoring, symptomatic treatment. I recommend a course of D5 water with potassium. Otherwise, repeat labs. Continue the vitamins and Megace. Prognosis is guarded because of multiple complex medical issues. Further recommendations to follow. MMODL / IJN: [id number] /
[2020-10-29] MEDS: D5W WITH KCL 20 MEQ/L 1,000 ML IV SCH (17:35)
[2020-10-29] MEDS: RIVAROXABAN 20 MG TAB PO SCH (17:40)
[2020-10-30] MEDS: LEVOTHYROXINE 25 MCG TAB PO SCH (06:56)
[2020-10-30] MEDS: ACETAMINOPHEN TAB 325 MG TAB PO SCH ×2 (06:56→15:30)
[2020-10-30] MEDS: IPRATROPIUM-ALBUTEROL 3 ML NEB INHALATION PRN ×4 (08:45→21:05)
[2020-10-30] MEDS: IPRATROPIUM 0.5 MG/2.5 ML NEBU INHALATION SCH ×4 (08:45→21:05)
[2020-10-30] MEDS: TIMOLOL 0.5% OPHTH DROPS 5 ML BTL BOTH EYES SCH (11:40)
[2020-10-30 11:42] LABS: Calcium 8.6 mg/dL (8.4-10.2); Potassium 3.8 mmol/L (3.5-5.1)
[2020-10-30 11:52] LABS: HCT 40.9 % (39.0-53.0); HGB 13.1 gm/dL (13.0-17.5); Hypochromasia Moderate; MCH 27.8 pg (25.0-35.0); MCV 87.1 fL (80.0-100.0); Mean Platelet Volume 7.5; Platelet Count 199 k/uL (150-450); RDW 15.6 % (11.5-15.5); WBC 8.5 k/uL (3.8-10.6)
[2020-10-30] MEDS: METOPROLOL TARTRATE 25 MG TAB PO SCH (11:59)
[2020-10-30] MEDS: FUROSEMIDE 40 MG TAB PO SCH (11:59)
[2020-10-30] MEDS: MULTIVITAMINS, THERA 1 EACH TAB PO SCH (12:41)
[2020-10-30] MEDS: FOLIC ACID 1 MG TAB PO SCH (12:41)
[2020-10-30] MEDS: THIAMINE 100 MG TAB PO SCH (12:41)
[2020-10-30] MEDS: D5W WITH KCL 20 MEQ/L 1,000 ML IV SCH ×2 (15:30→22:46)
[2020-10-30] MEDS: NYSTATIN 100,000 UNIT/ML SUSP 500,000 UNIT/5 ML CUP PO SCH ×2 (15:30→15:31)
[2020-10-30] MEDS: RIVAROXABAN 20 MG TAB PO SCH (15:31)
--- NOTE | 2020-10-30 20:07 | PN ---
PROGRESS NOTE DATE OF SERVICE: 10/30/2020 I am covering for Dr. Naranjo. This 80-year-old gentleman admitted with CHF exacerbation also COPD. The patient is confused. Patient was extremely weak also. The patient has swallowing difficulty. The patient is holding food in mouth. The patient is high risk for aspiration. CT scan of the brain showed age-related atrophic changes and the patient has been closely monitored. The most recent chest x-ray was repeated, which shows some complete opacification of the right hemithorax indicating collapse and possibly aspiration. PAST MEDICAL HISTORY: Reviewed. REVIEW OF SYSTEMS: Could not be taken, the patient is confused. CURRENT MEDICATIONS: Current medications are: Tylenol, DuoNeb, Lipitor, Rocephin, folic acid, Lasix, Haldol, Atrovent, Synthroid, Lopressor. Doses are reviewed. PHYSICAL EXAMINATION: The patient is conscious, confused. Pulse 80, blood pressure 134/88, respirations 16, temperature 98.2, pulse ox 95% on 4 L. HEENT: Conjunctivae normal. NECK: No jugular venous distention. CARDIOVASCULAR: S1, S2 muffled. RESPIRATORY: Breath sounds diminished at the bases. A few scattered rhonchi. ABDOMEN: Soft, nontender. LEGS: No edema. No swelling. NERVOUS SYSTEM: No focal deficits. LABS: WBC 8.5, hemoglobin 13.1, sodium 154, potassium 3.8. ASSESSMENT: 1. Shortness of breath possibly multifactorial, congestive heart failure acute exacerbation as well as acute on chronic diastolic dysfunction with congestive heart failure acute exacerbation, ejection fraction 60% to 65%. 2. Chronic obstructive pulmonary disease, acute exacerbation. 3. Complete right lung collapse, possibly aspiration. 4. Generalized weakness. 5. Confusion, possibly acute metabolic encephalopathy, multifactorial. 6. Acute hypoxic respiratory failure, present on admission, multifactorial. 7. Abnormal troponins are not indicative of any acute coronary syndrome per Cardiology. 8. Chronic persistent atrial fibrillation. 9. History of sick sinus syndrome and permanent pacemaker implantation. 10.Underlying dementia. 11.Hypernatremia. 12.Hypokalemia. 13.Increased WBC. 14.NO CODE, NO CPR, NO VENT. RECOMMENDATIONS AND DISCUSSION: I recommend to continue current medications, continue symptomatic treatment. I will continue with intensive bronchodilator treatment. I would also recommend consult Pulmonary otherwise guarded prognosis because of multiple complex medical issues and I would also recommend D5 water and monitor sodium closely. The potassium is also improving. Change the fluid to D5 water and guarded prognosis. Further recommendations to follow. See orders for details. MMODL / IJN: [id number] /
[2020-10-31] MEDS: ACETAMINOPHEN TAB 325 MG TAB PO SCH ×5 (00:55→15:56)
[2020-10-31] MEDS: METOPROLOL TARTRATE 25 MG TAB PO SCH ×2 (00:56→08:46)
[2020-10-31] MEDS: risperiDONE 0.25 MG TAB PO SCH (00:56)
[2020-10-31] MEDS: TAMSULOSIN 0.4 MG CAP.ER.24H PO SCH (00:56)
[2020-10-31] MEDS: ATORVASTATIN 20 MG TAB PO SCH (00:56)
[2020-10-31] MEDS: TIMOLOL 0.5% OPHTH DROPS 5 ML BTL BOTH EYES SCH ×2 (01:00→08:47)
[2020-10-31] MEDS: NYSTATIN 100,000 UNIT/ML SUSP 500,000 UNIT/5 ML CUP PO SCH ×4 (01:00→15:56)
[2020-10-31] MEDS: LEVOTHYROXINE 25 MCG TAB PO SCH (04:24)
[2020-10-31 06:53] LABS: Basophils % (A) 0 %; Eosinophils # (A) 0.1 k/uL (0-0.7); Eosinophils % (A) 1 %; HCT 42.1 % (39.0-53.0); HGB 13.6 gm/dL (13.0-17.5); Hypochromasia Slight; Lymphocytes # (A) 1.6 k/uL (1.0-4.8); Lymphocytes % (A) 16 %; MCH 27.9 pg (25.0-35.0); MCHC 32.4 g/dL (31.0-37.0); Mean Platelet Volume 7.5; Monocytes # (A) 0.7 k/uL (0-1.0); Monocytes % (A) 7 %; Neutrophils # (A) 7.2 k/uL (1.3-7.7); Neutrophils % (A) 74 %; Platelet Count 186 k/uL (150-450); RBC 4.89 m/uL (4.30-5.90); RDW 15.6 % (11.5-15.5); WBC 9.7 k/uL (3.8-10.6)
[2020-10-31 07:18] LABS: Calcium 8.3 mg/dL (8.4-10.2); Potassium 4.3 mmol/L (3.5-5.1)
[2020-10-31] MEDS: D5W WITH KCL 20 MEQ/L 1,000 ML IV SCH ×2 (07:54→15:56)
[2020-10-31] MEDS: IPRATROPIUM 0.5 MG/2.5 ML NEBU INHALATION SCH ×3 (08:44→16:11)
[2020-10-31] MEDS: FUROSEMIDE 40 MG TAB PO SCH (08:46)
[2020-10-31] MEDS: THIAMINE 100 MG TAB PO SCH (08:47)
[2020-10-31] MEDS: MULTIVITAMINS, THERA 1 EACH TAB PO SCH (08:47)
[2020-10-31] MEDS: FOLIC ACID 1 MG TAB PO SCH (08:47)
--- NOTE | 2020-10-31 09:18 | XR ---
EXAMINATION TYPE: XR chest 1V portable DATE OF EXAM: 10/31/2020 Comparison: 10/29/2020 Clinical History: 80-year-old male Aspiration Findings: Left anterior chest wall pacemaker generator with right atrial and right ventricular leads. There is near complete white out of the right hemithorax though some aeration developing in the right apex now . Marked volume loss which shift of the heart towards the right. Trace left effusion and patchy left lower lung opacity also persists. Impression: Near complete white out of the right hemithorax persists though aeration shows slight improvement at the right apex. Continued severe volume loss on the right with shift of the heart towards the right s grzegorz of the chest. Trace left effusion and some patchy infiltrate at the left base is similar.
--- NOTE | 2020-10-31 14:45 | P.PN ---
Subjective Progress Note Date: 10/31/20 Principal diagnosis: Acute exacerbation of chronic diastolic congestive heart failure/COPD The patient is seen today 10/31/2020 in follow-up on the selective care unit. Yesterday the patient's chest x-ray had near complete opacification of the right lung. We're reconsulted for the same. The patient was to be trialed on BiPAP to try and open up the airway that we suspected a mucous plug however he was intolerant to it and had refused to wear. His family is at the bedside today. They are requesting no more interventions be attempted on the patient. He would not tolerate bronchoscopy without most likely and did not on life support. They are requesting hospice. Is currently maintaining O2 saturations in the 90s on 4 L/m per nasal cannula. Objective - Vital Signs Vital signs: Vital Signs Temp 99.4 F 10/31/20 08:00 Pulse 109 H 10/31/20 08:00 Resp 20 10/31/20 08:00 BP 109/68 10/31/20 08:00 Pulse Ox 95 10/31/20 08:00 Intake & Output 10/30/20 10/31/20 10/31/20 18:59 06:59 18:59 Weight 77 kg Other: Voiding Method Diaper Diaper Diaper Incontinent Incontinent Incontinent # Voids 1 1 - Exam GENERAL EXAM: Alert, frail 80-year-old gentleman, on 4 L nasal cannula, and mild respiratory distress. HEAD: Normocephalic. EYES: Normal reaction of pupils, equal size. NOSE: Clear with pink turbinates. THROAT: No erythema or exudates. NECK: No masses, no JVD. CHEST: No chest wall deformity. LUNGS: Equal air entry with diminished breath sounds on the right. CVS: S1 and S2 normal with no audible murmur, regular rhythm. ABDOMEN: No hepatosplenomegaly, normal bowel sounds, no guarding or rigidity. SPINE: No scoliosis or deformity SKIN: No rashes CENTRAL NERVOUS SYSTEM: No focal deficits, tone is normal in all 4 extremities. EXTREMITIES: There is no peripheral edema. No clubbing, no cyanosis. Peripheral pulses are intact. - Labs CBC & Chem 7: 10/31/20 06:17 10/31/20 06:17 Labs: Abnormal Lab Results - Last 24 Hours (Table) 10/31/20 10/31/20 Range/Units 06:17 06:17 RDW 15.6 H (11.5-15.5) % Sodium 150 H (137-145) mmol/L Chloride 120 H (98-107) mmol/L BUN 26 H (9-20) mg/dL Glucose 124 H (74-99) mg/dL Calcium 8.3 L (8.4-10.2) mg/dL Assessment and Plan Assessment: 1 Acute hypoxic history failure secondary to an acute exacerbation thought diastolic congestive heart failure/COPD 2 Near complete opacification of the right lung suspect mucous plug 3 Dementia 4 Sick sinus syndrome status post permanent pacemaker implantation aches number 5 Chronic atrial fibrillation Plan: The patient was seen and evaluated by Dr. Cooper Family is present and are requesting no further intervention The patient would not tolerate bronchoscopy without most likely ending up on life support They are requesting hospice at this time I, the cosigning physician, performed a history & physical examination of the patient. Lungs sounds diminished in the right lung. Maintaining good O2 saturations in the 90s on 4 L/m per nasal cannula. I discussed the assessment and plan of care with my nurse practitioner, Hillary Mcdonald. I attest to the above note as dictated by her.
[2020-10-31 15:13] VITALS: BMI 23.0
[2020-10-31] MEDS: RIVAROXABAN 20 MG TAB PO SCH (15:56)
[2020-10-31 16:20] VITALS: BP 144/74; PULSE 61; RESP 19; TEMP 98.5
[2020-10-31] MEDS ORDERED: FAMOTIDINE 20 MG/2 ML VIAL IV SCH (21:00)
--- NOTE | 2020-11-01 07:14 | P.EN ---
Please consider this note as discharge summary This is a pleasant 80 years old male with past medical history of atrial fibrillation on xarelto , COPD, dementia, hyperlipidemia, hypertension. Presents with signs symptoms of heart failure which is currently stable, his ejection fraction is 60-65%. Also patient found to have UTI and bacteremia secondary to E. coli infection, also patient is hypernatremic with metabolic encephalopathy, chest x-ray showing complete or near complete opacification of the right lung and left lower lobe infiltrate. He needs 4 L of oxygen to keep his oxygen saturation and 90s, his troponin were elevated and cover inspector evaluated him and sign off. Patient is currently is confused, he keeps tearing and they are, he follow simple commands but not always. He does not answer even when he was asked about his knee. He is somewhat tachypneic with decreased breath sounds on the right side with some crepitation. No leg edema There is a BiPAP machine at bedside. Also he is getting D5W at 100 mL per hour. No Velez catheter. He is afebrile. CBC is unremarkable. Sodium is improving gradually 154 down to 150. Rest of BMP is unremarkable on the glucose is controlled. he is also on ceftriaxone 1 mg daily, we going to increase that to 2 g daily. And on Xarelto and oral Lasix 40 mg daily. He is on Haldol as needed and risperidone at bedtime. discussed with staff and bedside nurse. Family talk to bedside nurse and they are open to the idea of comfort care/hospice, however evaluated for his sodium improved and assess his mental status and pulmonary team evaluation for his lung disease after Dr. Cooper saw the patient and recommended hospice, so upper request of the family also hospice nurse was consulted and the patient was accepted under hospice care review of systems: N/a Active Medications Generic Name Dose Route Start Last Admin Trade Name Freq PRN Reason Stop Dose Admin Acetaminophen 650 mg 10/24/20 19:00 10/31/20 04:24 Acetaminophen Tab 325 Mg Tab PO Not Given 0700,1300,1900,2300 [facility] Albuterol/Ipratropium 3 ml 10/23/20 23:41 10/30/20 21:05 Ipratropium-Albuterol 3 Ml Neb INHALATION 3 ml RT-Q4H PRN Administration Shortness Of Breath Or Wheezing Atorvastatin Calcium 20 mg 10/24/20 20:00 10/31/20 00:56 Atorvastatin 20 Mg Tab PO Not Given HS@2000 [facility] Folic Acid 1 mg 10/28/20 12:00 10/31/20 08:47 Folic Acid 1 Mg Tab PO Not Given DAILY@1200 [facility] Furosemide 40 mg 10/29/20 09:00 10/31/20 08:46 Furosemide 40 Mg Tab PO Not Given DAILY [facility] Haloperidol Lactate 0.5 mg 10/27/20 16:12 Haloperidol Lactate 5 Mg/Ml 1 Ml Vial IM Q6HR PRN Agitation or Acute Psychosis Potassium Chloride/Dextrose 1,000 mls @ 100 mls/hr 10/29/20 16:00 10/31/20 07:54 D5%-Kcl 20 Meq/L Iv Solution IV Not Given .Q10H [facility] Ceftriaxone Sodium 2 gm/ 50 mls @ 100 mls/hr 11/01/20 09:00 Sodium Chloride IVPB Q24HR [facility] Ceftriaxone Sodium 1 gm/ 50 mls @ 100 mls/hr 10/31/20 12:11 Sodium Chloride IVPB 10/31/20 12:40 ONCE STA Ipratropium [place] 0.5 mg 10/25/20 08:00 10/31/20 11:35 Ipratropium 0.5 Mg/2.5 Ml Nebu INHALATION Not Given RT-QID [facility] Levothyroxine Sodium 25 mcg 10/25/20 06:30 10/31/20 04:24 Levothyroxine 25 Mcg Tab PO Not Given 0630 [facility] Metoprolol Tartrate 25 mg 10/24/20 21:00 10/31/20 08:46 Metoprolol Tartrate 25 Mg Tab PO Not Given BID [facility] Miscellaneous Information 1 each 10/27/20 15:09 Magnesium Replacement Protocol 1 Each Misc MISCELLANE DAILY PRN Per Protocol Protocol Miscellaneous Information 1 each 10/29/20 09:54 Potassium Replacement Protocol 1 Each Misc MISCELLANE DAILY PRN Per Protocol Protocol Multivitamins 1 each 10/28/20 12:00 10/31/20 08:47 Multivitamins, Thera 1 Each Tab PO Not Given DAILY@1200 [facility] Nystatin 500,000 unit 10/29/20 13:15 10/31/20 08:46 Nystatin 100,000 Unit/Ml Susp 500,000 Unit/5 Ml Cup PO Not Given QID [facility] Risperidone 0.125 mg 10/27/20 21:00 10/31/20 00:56 Risperidone 0.25 Mg Tab PO Not Given HS [facility] Rivaroxaban 20 mg 10/24/20 17:30 10/30/20 15:31 Rivaroxaban 20 Mg Tab PO Not Given AC-SUPPER [facility] Tamsulosin HCl 0.4 mg 10/24/20 21:00 10/31/20 00:56 Tamsulosin 0.4 Mg Cap.Er.24h PO Not Given HS [facility] Thiamine HCl 100 mg 10/28/20 12:00 10/31/20 08:47 Thiamine 100 Mg Tab PO Not Given DAILY@1200 [facility] Timolol Maleate 1 drops 10/24/20 21:00 10/31/20 08:47 Timolol 0.5% Ophth Drops 5 Ml Btl BOTH EYES Not Given BID [facility] Objective - Vital Signs Vital signs: Vital Signs Temp 99.4 F 10/31/20 08:00 Pulse 109 H 10/31/20 08:00 Resp 20 10/31/20 08:00 BP 109/68 10/31/20 08:00 Pulse Ox 95 10/31/20 08:00 Intake & Output 10/30/20 10/31/20 10/31/20 18:59 06:59 18:59 Weight 77 kg Other: Voiding Method Diaper Diaper Diaper Incontinent Incontinent Incontinent # Voids 1 1 - Exam GENERAL: The patient is confused and follow-up only some simple commands, nonverbal. Well developed, well nourished. HEENT: Pupils are round and equally reacting to light. EOMI. No scleral icterus. No conjunctival pallor. Normocephalic, atraumatic. No pharyngeal erythema. No thyromegaly. CARDIOVASCULAR: S1 and S2 present. No murmurs, rubs, or gallops. -PULMONARY: Decreased breath sounds on the right side, no wheezing or crackles. Tachypnea with mild crackles ABDOMEN: Soft, nontender, nondistended, normoactive bowel sounds. No palpable organomegaly. MUSCULOSKELETAL: No joint swelling or deformity. EXTREMITIES: No cyanosis, clubbing, or pedal edema. NEUROLOGICAL: Gross neurological examination did not reveal any focal deficits. SKIN: No rashes. no petechiae. - Labs CBC & Chem 7: 10/31/20 06:17 10/31/20 06:17 Labs: Abnormal Lab Results - Last 24 Hours (Table) 10/31/20 10/31/20 Range/Units 06:17 06:17 RDW 15.6 H (11.5-15.5) % Sodium 150 H (137-145) mmol/L Chloride 120 H (98-107) mmol/L BUN 26 H (9-20) mg/dL Glucose 124 H (74-99) mg/dL Calcium 8.3 L (8.4-10.2) mg/dL Assessment and Plan Assessment: End of life care, hospice care Acute urinary tract infection and bacteremia secondary to E. coli Complete or near complete opacification of the right lung and left basal infiltrate Metabolic encephalopathy on the top of his history of dementia acute hypoxic respiratory failure chronic diastolic CHF with ejection fraction 60-65%, currently is euvolemic Chronic atrial fibrillation on lateral to Elevated troponin secondary to above, already evaluated by cover inspector History of sick sinus syndrome on pacemaker Dementia Plan: This is a pleasant 80 years old male who presents with hypernatremia, AMS and right lung opacification. Continue with ceftriaxone 2 g daily, continue with D5W and Xarelto, pulmonary team consult. Cardiology team already signed off as per the pulmonary team patient would not tolerate bronchoscopy without most likely ending up on life-support, family requesting hospice at this time. Hospice nurse was consulted and patient was accepted, see orders for more details
--- NOTE | 2020-11-01 15:25 | CDI ---
Documentation Clarification Form Date: 11/01/20 From: Gerri Benites Phone: Admit Date: 10/25/2020 07:59:00 AM Patient Name: Bladimir March Visit Number: [id number] Discharge Date: 10/31/2020 04:20:00 PM ATTENTION: The Clinical Documentation Specialists (CDI) and [facility] Coding Staff appreciate your assistance in clarifying documentation. Please respond to the clarification below the line at the bottom and electronically sign. The CDI & [facility] Coding staff will review the response and follow-up if needed. Please note: Queries are made part of the Legal Health Record. If you have any questions, please contact the author of this message via ITS. Dr. Sher Sotelo, There is documentation of bacteremia in your procedure note on 10/31. Bacteremia is considered a lab finding. Additional clarification regarding bacteremia is requested. Patient history/risk factors: metabolic encephalopathy, persistent atrial fibrillation, HTN w acute on chronic diastolic CHF Clinical Indicators: Acute urinary tract infection and bacteremia secondary to E. coli WBC: 10/26-11.7, 10/28-10.7 Left Shift10/26-10.4, 10/28-9.6 Blood Culture: 10/27-Escheriochia coli Treatment: IV Rocephin Please provide additional clarification regarding the etiology/cause and/or clinical significance of the bacteremia: [ ] Bacteremia is related to sepsis [ ] Bacteremia is due to infectious process, please specify: [ ] Bacteremia is not clinically significant [ ] Other, please specify [ ] Unable to determine Bacteremia is related to sepsis [facility]
--- NOTE | 2020-11-01 15:38 | CDI ---
Documentation Clarification Form Date: 11/01/20 From: Gerri Benites Phone: Admit Date: 10/25/2020 07:59:00 AM Patient Name: Bladimir March Visit Number: [id number] Discharge Date: 10/31/2020 04:20:00 PM ATTENTION: The Clinical Documentation Specialists (CDI) and [facility] Coding Staff appreciate your assistance in clarifying documentation. Please respond to the clarification below the line at the bottom and electronically sign. The CDI & [facility] Coding staff will review the response and follow-up if needed. Please note: Queries are made part of the Legal Health Record. If you have any questions, please contact the author of this message via ITS. Dr. Sher Sotelo, The Registered Dietitian reassessment on 11/01 indicates this patient meets criteria for inadequate energy intake and recommending TPN/tube feed. Based on this information and the findings below, is there an additional diagnosis that is clinically appropriate for this patient? History/Risk Factors: frail, dysphagia, dementia, metabolic encephalopathy, HTN w acute on chronic diastolic CHF Clinical Indicators: RD Consult Assessment: BMI went from 27.3 to 23.0 Current BMI: 23.0 Insufficient energy intake: Poor appetite, intake 16% in 6 days Weight Loss: 91.5 kg to 77 kg Treatment: Ensure Enlive, Magic cups PPN/TPN: TPN is not indicated at this time, pt with function GI tract. Gastrostomy declined Total Protein: 10/24-5.9, 10/25-6.1, 10/26-6.7 Albumin: 10/24-2.7, 10/25-3.0, 10/26-3.3 Is there an additional diagnosis that is clinically appropriate for this patient? [ ] Mild Protein-Calorie Malnutrition [ ] Moderate Protein-Calorie Malnutrition [ ] Severe Protein-Calorie Malnutrition [ ] Other condition, please specify [ ] Unable to Determine no malnutrition MTDD
--- NOTE | 2020-11-06 09:06 | CDI ---
Documentation Clarification Form Date: 11/06/20 From: Gerri Benites Phone: Admit Date: 10/25/2020 07:59:00 AM Patient Name: Bladimir March Visit Number: [id number] Discharge Date: 10/31/2020 04:20:00 PM ATTENTION: The Clinical Documentation Specialists (CDI) and [facility] Coding Staff appreciate your assistance in clarifying documentation. Please respond to the clarification below the line at the bottom and electronically sign. The CDI & [facility] Coding staff will review the response and follow-up if needed. Please note: Queries are made part of the Legal Health Record. If you have any questions, please contact the author of this message via ITS. Dr. Sher Sotelo, A deep tissue injury of the left heel is documented by Nursing in Wound Assessment on 10/30. Based on this information and the findings below, is there an additional diagnosis that is clinically appropriate for this patient? History/Risk Factors: Acute on chronic diastolic CHF w HTN, UTI w sepsis Clinical Indicators: Deep tissue injury to left heel Location: Left heel Wound description: Deep tissue injury, 2.5 by 1.5 Treatment: Foam boots Is there an additional diagnosis that is clinically appropriate for this patient? [ ] Left heel Deep tissue injury-POA [ ] Left heel Deep tissue injury-Not POA [ ] Other condition, please specify [ ] Unable to determine Clinical Definitions: Stage 1 Pressure Ulcer: intact skin, non-blanching redness of local area Stage 2 Pressure Ulcer: Partial thickness, loss of dermis, pink wound bed Stage 3 Pressure Ulcer: Full thickness tissue loss Stage 4 Pressure Ulcer: Full thickness tissue loss with exposed bone, tendon, or muscle. Unstageable pressure ulcer: Full thickness tissue loss in which the base of the ulcer is covered by slough (yellow, ramos, reese, green or brown) and/or eschar (ramos, brown or black) in the wound bed. Left heel Deep tissue injury- unable to determine if present on admission , not seen pt then MTDD
== END 2020-10-31 16:20 | disposition hospice, home (50) | DRG 871 ==
LOC: EC 22:28 → 3SCARD 23:41 → OBSVTOIN 10-25 07:59 → 3SCARD 10-30 02:21
PROVIDERS: ADMIT Internal Medicine; ATTEND Internal Medicine
PROC: 5A0935A Assistance with Respiratory Ventilation, Less than 24 Consecutive Hours, High Flow/Velocity Cannula (ICD-10-PCS; principal; 2020-10-27)
PROC: 5A09357 Assistance with Respiratory Ventilation, Less than 24 Consecutive Hours, Continuous Positive Airway Pressure (ICD-10-PCS; 2020-10-30)
DX: A41.51 Sepsis due to Escherichia coli [E. coli] (principal); G93.41 Metabolic encephalopathy; J96.01 Acute respiratory failure with hypoxia; I50.33 Acute on chronic diastolic (congestive) heart failure; T17.890A Other foreign object in other parts of respiratory tract causing asphyxiation, initial encounter; E87.1 Hypo-osmolality and hyponatremia; E87.0 Hyperosmolality and hypernatremia; J44.1 Chronic obstructive pulmonary disease with (acute) exacerbation; J98.19 Other pulmonary collapse; I48.19 Other persistent atrial fibrillation; N39.0 Urinary tract infection, site not specified; L89.626 Pressure-induced deep tissue damage of left heel; I27.20 Pulmonary hypertension, unspecified; I49.5 Sick sinus syndrome; E86.0 Dehydration; I11.0 Hypertensive heart disease with heart failure; J84.10 Pulmonary fibrosis, unspecified; F03.90 Unspecified dementia, unspecified severity, without behavioral disturbance, psychotic disturbance, mood disturbance, and anxiety; Z66 Do not resuscitate; Z51.5 Encounter for palliative care; Z20.822 Contact with and (suspected) exposure to COVID-19; B96.20 Unspecified Escherichia coli [E. coli] as the cause of diseases classified elsewhere; E03.9 Hypothyroidism, unspecified; E78.5 Hyperlipidemia, unspecified; E87.6 Hypokalemia; I08.8 Other rheumatic multiple valve diseases; R13.10 Dysphagia, unspecified; G62.9 Polyneuropathy, unspecified; R77.8 Other specified abnormalities of plasma proteins; R32 Unspecified urinary incontinence; R29.810 Facial weakness; H40.9 Unspecified glaucoma; Z79.01 Long term (current) use of anticoagulants; Z79.890 Hormone replacement therapy; Z79.899 Other long term (current) drug therapy; Z90.49 Acquired absence of other specified parts of digestive tract; Z87.19 Personal history of other diseases of the digestive system; Z87.81 Personal history of (healed) traumatic fracture; Z87.39 Personal history of other diseases of the musculoskeletal system and connective tissue; Z98.890 Other specified postprocedural states; Z87.891 Personal history of nicotine dependence; Z95.0 Presence of cardiac pacemaker; Z82.49 Family history of ischemic heart disease and other diseases of the circulatory system; Z83.6 Family history of other diseases of the respiratory system
CPT/HCPCS: 70450; 71045; 80048; 80053; 81001; 82550; 82553; 83735; 83880; 84132; 84443; 84484; 85025; 85027; 85610; 85730; 87040; 87077; 87086; 87186; 93005; 93306; 94640; 94660; 94760; 99285

== ENCOUNTER 2020-10-31 15:50 | Inpatient (IN) | payer MEDICAID ==
[2020-10-31] MEDS ORDERED: ATROPINE OPHTH SOLN 1% 5ML BTL SUBLINGUAL PRN (16:05)
[2020-10-31] MEDS ORDERED: MORPHINE SULFATE 4 MG/ML SYRINGE IV PRN (16:05)
[2020-10-31] MEDS ORDERED: ONDANSETRON 4 MG/2 ML VIAL IVP PRN (16:05)
[2020-10-31] MEDS ORDERED: LORazepam 2 MG/ML INJ IV PRN (16:05)
[2020-10-31] MEDS ORDERED: ACETAMINOPHEN SUPPOSITORY 650 MG SUPP RECTAL PRN (16:05)
[2020-10-31] MEDS ORDERED: SODIUM CHLORIDE 0.9% 1,000 ML IV SCH (17:15)
[2020-10-31] MEDS: MORPHINE SULFATE (100 MG/2 ML) 100 MG in SODIUM CHLORIDE 0.9% 100 ML IV SCH (18:44)
[2020-11-01 05:05] VITALS: RESP 18
[2020-11-01] MEDS: MORPHINE SULFATE (100 MG/2 ML) 100 MG in SODIUM CHLORIDE 0.9% 100 ML IV SCH (06:32)
[2020-11-01 11:09] VITALS: PULSE 129
--- NOTE | 2020-11-01 12:34 | P.HPIM ---
History of Present Illness This is a pleasant 80 years old male with past medical history of atrial fibrillation on xarelto , COPD, dementia, hyperlipidemia, hypertension. Presents with signs symptoms of heart failure which is currently stable, his ejection fraction is 60-65%. Also patient found to have UTI and bacteremia secondary to E. coli infection, also patient is hypernatremic with metabolic encephalopathy, chest x-ray showing complete or near complete opacification of the right lung and left lower lobe infiltrate. He needs 4 L of oxygen to keep his oxygen saturation and 90s, his troponin were elevated and bench press operator evaluated him and sign off. Patient is currently is confused, he keeps tearing and they are, he follow simple commands but not always. He does not answer even when he was asked about his knee. He is somewhat tachypneic with decreased breath sounds on the right side with some crepitation. No leg edema There is a BiPAP machine at bedside. Also he is getting D5W at 100 mL per hour. No Velez catheter. He is afebrile. CBC is unremarkable. Sodium is improving gradually 154 down to 150. Rest of BMP is unremarkable on the glucose is controlled. he is also on ceftriaxone 1 mg daily, we going to increase that to 2 g daily. And on Xarelto and oral Lasix 40 mg daily. He is on Haldol as needed and risperidone at bedtime. discussed with staff and bedside nurse. Family talk to bedside nurse and they are open to the idea of comfort care/hospice, however evaluated for his sodium improved and assess his mental status and pulmonary team evaluation for his lung disease after Dr. Cooper saw the patient and recommended hospice, so upper request of the family also hospice nurse was consulted and the patient was accepted under hospice care Patient is currently under hospice care Review of Systems N/a, patient could not provide information Past Medical History Past Medical History: Atrial Fibrillation, COPD, Dementia, Eye Disorder, Hyperlipidemia, Hypertension Additional Past Medical History / Comment(s): glaucoma, hx neuropathy, L sided facial droop. History of Any Multi-Drug Resistant Organisms: None Reported Past Surgical History: Back Surgery, Cholecystectomy, Hernia Repair, Orthopedic Surgery, Pacemaker Additional Past Surgical History / Comment(s): colonoscopy, surgery for pinched nerve in back, fractured left tibia/fibula, pacer. Past Anesthesia/Blood Transfusion Reactions: No Reported Reaction Type of Cardiac Device: Permanent Pacemaker Device Placement Date:: unknown Past Psychological History: No Psychological Hx Reported Smoking Status: Former smoker Past Alcohol Use History: None Reported Past Drug Use History: None Reported - Past Family History Mother Family Medical History: No Reported History Father Family Medical History: AICD/Pacemaker, Coronary Artery Disease (CAD), Respiratory Disorder Additional Family Medical History / Comment(s): Pacemaker Medications and Allergies Home Medications Medication Instructions Recorded Confirmed Type Furosemide [Lasix] 20 mg PO BID 09/04/15 10/31/20 History Rivaroxaban [Xarelto] 20 mg PO AC-SUPPER 09/04/15 10/31/20 History Atorvastatin Calcium [Lipitor] 20 mg PO HS@199908/08/20 10/31/20 History Flecainide Acetate [Tambocor] 100 mg PO BID 08/08/20 10/31/20 History Acetaminophen Tab [Tylenol] 650 mg PO QID 08/14/20 10/31/20 History Metoprolol Tartrate 25 mg PO BID 08/14/20 10/31/20 History Tamsulosin [Flomax] 0.4 mg PO HS 08/14/20 10/31/20 History Tiotropium 18 Mcg/Puff [Spiriva] 2 cap INHALATION RT-DAILY 08/14/20 10/31/20 History Levothyroxine Sodium 25 mcg PO DAILY 10/24/20 10/31/20 History [Levothyroxine] Timolol 0.5% Ophth Soln [Timoptic 1 drop BOTH EYES BID 10/24/20 10/31/20 History 0.5% Ophth Soln] risperiDONE 0.5 mg PO HS 10/24/20 10/31/20 History Allergies Allergy/AdvReac Type Severity Reaction Status Date / Time No Known Allergies Allergy Verified 10/31/20 17:16 Physical Exam Vitals: Vital Signs Pulse Resp Pulse Ox 11/01/20 06:32 118 H 18 11/01/20 05:04 124 H 18 11/01/20 04:18 120 H 22 11/01/20 03:26 116 H 24 11/01/20 02:36 118 H 22 11/01/20 01:11 113 H 22 11/01/20 00:30 113 H 24 10/31/20 23:44 113 H 24 10/31/20 22:45 113 H 26 H 10/31/20 20:56 113 H 24 10/31/20 20:10 107 H 30 H 10/31/20 19:50 32 H 10/31/20 19:42 32 H 10/31/20 18:43 32 H 10/31/20 18:25 32 H 10/31/20 17:44 32 H 10/31/20 17:05 32 H 95 Intake and Output 10/31/20 11/01/20 11/01/20 22:59 06:59 14:59 Intake Total 11.713 67.473 Output Total 0 Balance 11.713 67.473 Intake: Intake, IV Titration 11.713 67.473 Amount Morphine Sulfate (100 mg/ 11.713 67.473 2 ml) 100 mg In Sodium Chloride 0.9% 100 ml @ 1 MG/HR 1.02 mls/hr IV . Q24H [facility] Rx#:[id number] Output: Urine 0 Other: Voiding Method Indwelling Catheter Weight 77 kg 74 kg -GENERAL: The patient is confused and nonverbal. HEENT: Pupils are round and equally reacting to light. EOMI. No scleral icterus. No conjunctival pallor. Normocephalic, atraumatic. No pharyngeal erythema. No thyromegaly. CARDIOVASCULAR: S1 and S2 present. No murmurs, rubs, or gallops. -PULMONARY: Decreased breath sounds on the right side, no wheezing or crackles. Tachypnea with mild crackles ABDOMEN: Soft, nontender, nondistended, normoactive bowel sounds. No palpable organomegaly. MUSCULOSKELETAL: No joint swelling or deformity. EXTREMITIES: No cyanosis, clubbing, or pedal edema. NEUROLOGICAL: Gross neurological examination did not reveal any focal deficits. SKIN: No rashes. no petechiae. Assessment and Plan Assessment: End of life care, hospice care Acute urinary tract infection and bacteremia secondary to E. coli Complete or near complete opacification of the right lung and left basal infiltrate Metabolic encephalopathy on the top of his history of dementia acute hypoxic respiratory failure chronic diastolic CHF with ejection fraction 60-65%, currently is euvolemic Chronic atrial fibrillation on lateral to Elevated troponin secondary to above, already evaluated by bench press operator History of sick sinus syndrome on pacemaker Dementia Plan: Continue with hospice care Tylenol, Ativan as needed, morphine as needed, Zofran as needed Morphine drip Ophthalmic atropine Patient is DO NOT RESUSCITATE, prognosis is extremely poor
== END 2020-11-01 15:40 | disposition expired | DRG 951 ==
LOC: 3SCARD 16:26
PROVIDERS: ADMIT Internal Medicine; ATTEND Internal Medicine
DX: Z51.5 Encounter for palliative care (principal); G93.41 Metabolic encephalopathy; I48.20 Chronic atrial fibrillation, unspecified; I50.32 Chronic diastolic (congestive) heart failure; E87.0 Hyperosmolality and hypernatremia; N39.0 Urinary tract infection, site not specified; R78.81 Bacteremia; Z66 Do not resuscitate; I11.0 Hypertensive heart disease with heart failure; J44.9 Chronic obstructive pulmonary disease, unspecified; F03.90 Unspecified dementia, unspecified severity, without behavioral disturbance, psychotic disturbance, mood disturbance, and anxiety; Z87.891 Personal history of nicotine dependence; Z82.49 Family history of ischemic heart disease and other diseases of the circulatory system; Z79.890 Hormone replacement therapy; Z79.01 Long term (current) use of anticoagulants; Z79.899 Other long term (current) drug therapy; E78.5 Hyperlipidemia, unspecified; B96.20 Unspecified Escherichia coli [E. coli] as the cause of diseases classified elsewhere; H40.9 Unspecified glaucoma; R77.8 Other specified abnormalities of plasma proteins; Z95.0 Presence of cardiac pacemaker